=== PATIENT | female | born 1955 | race Caucasian/White ===

== ENCOUNTER 2023-10-26 17:56 | Observation (INO) | payer MEDICARE, BC, SELFPAY ==
[2023-10-26 18:02] VITALS: BP 161/84; PULSE 88; RESP 14; TEMP 35.6; O2SAT 100; BMI 25.4
--- OUTSIDE RECORDS SUMMARY | 2023-10-26 18:36 | XMS RPT_ITS | CCD ---
Author Name Unknown Address [id number] [place] [address] Organization [facility] Care Team Providers Care Hyperbaric Tech Name Role Phone Joanne Monae Unavailable Unavailable Joanne Monae Unavailable Unavailable No Doctor Assigned, Nodr Unavailable Unavail able Ciesa, Tess Unavailable Fast, Madison A Unavailable Lis Abad Unavailable Unavailable Manchak, Maisha Unavailable Unavailable Slarb, Lenora Unavailable Unavailable Unavailable Unavailable Ciesa, Tess Unavailable Fast, Madison A Unavailable Alba Rich Unavailable Unavailable Manchak, Maisha Unavailable Unavailable Lis Abad Unavailable Unavailable Slarb, Lenora Unavailable Unavailable Dennis Monzon Unavailable Unavailable Unavailable Unavailable Cisussya Lisa Attending Unavailable Fast, Madison A Referring Unavailable Autumna Lisa Consulting Unavailable Dnenis Monzon Unavailable Unavailable Manchak, Maisha Unavailable Unavailable Lis Abad Unavailable Unavailable Dennis Evangelista Unavailable Unavailable Unavailable Unavailable ESAU DESOUZA Attending Unavailable ESAU DESOUZA Primary Care Unavailable ESAU DESOUZA Admitting Unavailable DEOESAU PATTERSON Attending Unavailable ESAU DESOUZA Primary Care Unavailable DOEESAU Admitting Unavailable Ciesa JAIME Tess Unavailable Fast DO, Madison A Unavailable Dennis Evangelista LPN Unavailable Unavailable Manchak ROXANNE, Maisha Unavailable Unavailable Lis Abad RN Unavailable Unavailable Unavailable Unavailable ESTELLE GREENBERG CNP Admitting Unavailab le ESTELLE GREENBERG CNP Attending Unavailab le AA REQUESTED, NEW Primary Care Unavailable APOSTOLIS, CLARA A Admitting Unavailable APOSTOLIS, CLARA A Attending Unavailable AA REQUESTED, NEW Primary Care Unavailable AA NO PCP, NO PCP Primary Care Unavailable APOSTOLIS, CLARA A Admitting Unavailable APOSTOLIS, CLARA A Attending Unavailable APOSTOLIS, CLARA A Admitting Unavailable APOSTOLIS, CLARA A Attending Unavailable JOANNE THEODORE Consulting Unavailable AA REQUESTED, NEW Primary Care Unavailable RAFAELA ERVIN Consulting Unavailable Emani Robledo MA Unavailable Unavailable Lisa Mcneil Unavailable Ricky DO, Madison A Unavailable Ramon RESIDENTIAL SOLAR SALES CONSULTANT, Markos Unavailable [phone] Ramon RESIDENTIAL SOLAR SALES CONSULTANT, Markos Unavailable [phone] Lisa Mcneil Unavailable Ramon RESIDENTIAL SOLAR SALES CONSULTANT, Markos Unavailable [phone] Christian DO, Jennifer Unavailable [phone] Baltazar QUALITY CONTROL TESTER, Kayela Unavailable Unavailable Loni Kaplan MA Unavailable Unavailable Slarb PUBLIC TRANSIT SPECIALIST, Lenora Unavailable Unavailable Unavailable Unavailable RAMON, NO MARKOS Referring Unavailable RAMON, CLEMENTE BURROWS Attending Unavailable Allergies Allergy Classification Reported Allergen(s) Allergy Type Date of Onset Reaction(s) Facility Acetaminophen / HYDROcodone (1 source) Acetaminophen / HYDROcodone Drug Allergy [facility] Repository Acetaminophen / oxyCODONE (5 sources) Acetaminophen / oxyCODONE; Translations: [Percocet *ANALGESICS - OPIOID*] Drug Allergy Itching [facility] Work Phone: Medications Completed/Discontinued Medications Medication Drug Class(es) Dates Sig (Normalized) Sig (Original) [id number] 200 actuat albuterol 0.09 mg/actuat metered dose inhaler (10 sources) beta2-Adrenergic Agonist Start: 09-03-2022 End: 07-23-2023 take 1-2 puff(s) by inhalation every four hours as needed albuterol sulfate 90 mcg/actuation inhalation HFA Aerosol with Adapter 1-2 Puff every 4 hours as needed for shortness of breath for 0 days Quantity: 1 {Each} Refills: 0 Ordered: 24-Oct-2023 Renetta DYERLenora Start : 03-Sep-2022 End : 23-Jul-2023 Discontinued Comments: Medication taken as needed. Problems Active Problems Problem Classification Problem Date Documented Date Episodic/Chronic Administrative/social admission (13 sources) Medical examinations/reports status; Translations: [Well woman exam with routine gynecological exam] 11-04-2017 Episodic Allergic reactions (1 source) Allergy status to narcotic agent status; Translations: [ALLERGY STATUS NARCOTIC AGENT] Onset: 02-02-2021 Episodic Cancer of breast (20 sources) Malignant neoplasm of female breast; Translations: [Primary malignant neoplasm of breast] 11-04-2017 Chronic Past or Other Problems Problem Classification Problem Date Documented Da te Episodic/Chronic Deficiency and other anemia (20 sources) Deficiency and other anemia Diabetes mellitus without complication (20 sources) Diabetes mellitus without complication Unclassified (20 sources) Unspecified Diagnosis 11-04-2017 Unclassified (20 sources) Abortions/Miscarriages ; Translations: [Abortions/Miscarriage s] 11-04-2017 Results Test Name Value Interpretation Reference Range Facil ity Vital Signs Date Time Vital Sign Value Performing Clinician Facility 07-23-2023 08:18-0400 Body height 165.74 cm Lenora Jackson LPN [facility] Work Phone: 07-23-2023 08:18-0400 Body mass index (BMI) [Ratio] 23.78 kg/m2 Lenora Jackson LPN [facility] Work Phone: 07-23-2023 08:18-0400 Body surface area Derived from formula 1.73 m2 Lenora Jackson LPN [facility] Work Phone: 07-23-2023 08:18-0400 Body temperature 97.8 [degF] Lenora Jackson LPN [facility] Work Phone: Encounters Encounter Date Encounter Type Care Provider Facility Start: 09-05-2023 End: 09-06-2023 ambulatory NO MARKOS NAVARRO Facility:[id number] Start: 07-23-2023 End: 07-23-2023 Office outpatient visit 25 minutes Markos Navarro RESIDENTIAL SOLAR SALES CONSULTANT Work Phone: [facility] Start: 07-23-2023 Review Markos Navarro CNP Work Phone: [facility] Start: 09-03-2022 Review Markos Navarro CNP Work Phone: [facility] Start: 09-03-2022 End: 09-16-2022 Office outpatient visit 15 minutes Markos Navarro CNP Work Phone: [facility] Start: 08-31-2022 End: 09-13-2022 Office outpatient visit 15 minutes Markos Navarro CNP Work Phone: [facility] Start: 06-12-2022 End: 06-12-2022 Annotation/Addendum Markos Navarro CNP Work Phone: [facility] Start: 05-15-2022 End: 05-15-2022 Office outpatient visit 25 minutes Markos Navarro CNP Work Phone: [facility] Start: 04-06-2022 End: 04-06-2022 Office outpatient visit 10 minutes Markos Navarro CNP Work Phone: [facility] Start: 09-08-2021 End: 09-08-2021 Office outpatient visit 5 minutes Lisa Mcneil CNP Work Phone: [facility] Start: 03-10-2021 End: 03-10-2021 Annotation/Addendum Lisa Mcneil CNP Work Phone: [facility] Start: 02-08-2021 End: 02-08-2021 Patient encounter status Markos Navarro RESIDENTIAL SOLAR SALES CONSULTANT Work Phone: [facility] Start: 02-08-2021 End: 02-08-2021 Periodic preventive med est patient 65yrs& older Lisa Mcneil RESIDENTIAL SOLAR SALES CONSULTANT Work Phone: [facility] Start: 01-30-2021 Encounter for other preprocedural examination ESTELLE García CNP [facility] Start: 01-19-2021 End: [facility] Start: 01-16-2021 End: 01-17-2021 ambulatory ESTELLE García CNP [facility] Start: 11-21-2020 End: 11-21-2020 Patient encounter procedure ESAU Schrader DEO [facility] Start: 10-28-2020 End: 10-28-2020 Patient encounter procedure ESUA Schrader DEO [facility] Start: 09-05-2020 End: 09-05-2020 ambulatory NO PCP AA NO PCP [facility] Start: 04-27-2020 End: 04-27-2020 Office outpatient visit 15 minutes Lisa [facility] Start: 04-27-2020 Review Lisa Rodriguezsilvia Brandan [facility] Start: 02-16-2020 End: 02-16-2020 Annotation/Addendum Lisa Mcneil [facility] Start: 02-03-2020 End: 02-03-2020 Annotation/Addendum Lisa Mcneil [facility] Start: 01-25-2020 End: 01-25-2020 Phone Encounter Lisa Jennifersilvia [facility] Start: 01-23-2020 End: 01-23-2020 Annotation/Addendum Lisa Jennifersilvia [facility] Start: 01-15-2020 End: 01-15-2020 Office outpatient visit 25 minutes Lisa Meraz [facility] Start: 01-15-2020 End: 01-15-2020 Patient encounter procedure Markos Navarro CNP Work Phone: [facility] Start: 12-17-2018 Patient encounter procedure Lisa Mcneil [facility] Start: 12-17-2018 End: 12-17-2018 Annotation/Addendum Lisa Autumnfrancis [facility] Start: 12-17-2018 End: 12-17-2018 Patient encounter procedure Markos Navarro CNP Work Phone: [facility] Start: 12-17-2018 End: 12-17-2018 Patient encounter status Markos Navarro CNP Work Phone: [facility] Start: 12-17-2018 End: 12-17-2018 Periodic preventive med est patient 40-64yrs Lisa Meraz [facility] Start: 01-28-2018 End: 01-28-2018 Ambulatory Joanne Monae Facility:[facility] Start: 12-03-2017 End: 12-03-2017 Annotation/Addendum Lisa Mcneil [facility] Start: 11-04-2017 End: 11-04-2017 Patient encounter procedure Markos Landapuja SANDOVAL Work Phone: [facility] Start: 11-04-2017 End: 11-04-2017 Periodic preventive med est patient 40-64yrs Lisa Mcneil [facility] Start: 03-18-2017 End: 03-18-2017 Office outpatient visit 15 minutes Lisa Mcneil [facility] Start: 02-05-2017 End: 02-05-2017 Annotation/Addendum Lisa Mcneil [facility] Start: 02-04-2017 End: 02-04-2017 Phone Encounter Lisa Mcneil [facility] Start: 11-07-2016 End: 11-07-2016 Patient encounter procedure Lisa Leyvafrancis [facility] Start: 11-06-2016 End: 11-06-2016 Phone Encounter Lisa Mcneil [facility] Start: 11-02-2016 End: 11-02-2016 Lab Order Lisa Mcneil [facility] Start: 10-31-2016 End: 10-31-2016 Patient encounter procedure Markos Ramon SANDOVAL Work Phone: [facility] Start: 10-31-2016 End: 10-31-2016 Periodic preventive med est patient 40-64yrs Lisa Leyvafrancis [facility] Start: 10-07-2015 End: 10-11-2015 Office outpatient visit 25 minutes Lisa Leyvafrancis [facility] Start: 10-07-2015 End: 10-11-2015 Patient encounter procedure Markos Navarro CNP Work Phone: [facility] Start: 09-07-2014 End: 09-07-2014 Medical examinations/reports status Markos Navarro CNP Work Phone: [facility] Start: 09-07-2014 End: 09-07-2014 Office outpatient visit 25 minutes Lisa Autumnfrancis [facility] Start: 08-10-2014 End: 08-10-2014 Phone Encounter Lisa Leyvafrancis [facility] Start: 08-09-2014 End: 08-09-2014 Office outpatient visit 25 minutes Lisa Leyvafrancis [facility] Start: 06-15-2014 End: 06-15-2014 Phone Encounter Lisa Leyvafrancis [facility] Start: 08-05-2013 End: 08-06-2013 Medical examinations/reports status Markos Navarro RESIDENTIAL SOLAR SALES CONSULTANT Work Phone: [facility] Start: 08-05-2013 End: 08-06-2013 Patient encounter procedure Lisa Mcneil [facility] Start: 07-07-2013 End: 07-07-2013 Patient encounter procedure Lisa Mcneil [facility] Patient encounter procedure Dennis Evangelista PUBLIC TRANSIT SPECIALIST [facility] Work Phone: Patient encounter procedure Dennis Evangelista LPN [facility] Work Phone: Patient encounter procedure Dennis Jean Carlos ENGLISHN [facility] Work Phone: Patient encounter procedure Ashley Ledesma CMA [facility] Work Phone: Patient encounter procedure Lenora Slarb PUBLIC TRANSIT SPECIALIST [facility] Work Phone: Patient encounter procedure Lenora Slarb PUBLIC TRANSIT SPECIALIST [facility] Work Phone: Patient encounter procedure Lenora Slarb PUBLIC TRANSIT SPECIALIST [facility] Work Phone: Patient encounter status Lisa Mcneil RESIDENTIAL SOLAR SALES CONSULTANT Work Phone: [facility] Work Phone: Patient encounter status Dennis Evangelista PUBLIC TRANSIT SPECIALIST [facility] Work Phone: Patient encounter status Violetachana Delaney [place] [facility] Work Phone: Patient encounter status Lenora Slarb PUBLIC TRANSIT SPECIALIST [facility] Work Phone: Patient encounter status Lenora Slarb PUBLIC TRANSIT SPECIALIST [facility] Work Phone: Patient encounter status Lenora Slarb PUBLIC TRANSIT SPECIALIST [facility] Work Phone: Procedures Date Procedure Procedure Detail Performing Clinician Arthroscopic knee operation Dennis Evangelista Arthroscopic knee operation Dennis Evangelista PUBLIC TRANSIT SPECIALIST Arthroscopic knee operation Dennis Evangelista LPN Arthroscopic knee operation Violetachana Ledesma CMA Arthroscopic knee operation Lenora Slarb PUBLIC TRANSIT SPECIALIST Arthroscopic knee operation Lenora Slarb PUBLIC TRANSIT SPECIALIST Arthroscopic Knee [facility] - Left Lis L Long Arthroscopic Knee [facility] - Left Alba Hilario Arthroscopic Knee [facility] - Left Dennis Monzon H/O: hysterectomy Status post hysterectom y Lisa Mcneil [facility] Work Phone: Plan of Treatment Date Care Activity Detail Author Start: 07-23-2023 Patient Education Bone Mineral Density Testing: dexa [facility] Work Phone: Start: 07-23-2023 Procedure Education Eprescribed prescriptions (G8553) [facility] Work Phone: Start: 07-23-2023 Provider Instructions for Treatment [facility] Work Phone: Start: 07-23-2023 25 hydroxy includes fractions if performed CALCIFEDIOL (52969) [facility]; [facility] Work Phone: Start: 07-23-2023 Lipid panel LIPID PANEL (63876) [facility] Work Phone: Start: 07-23-2023 Urinalysis qual/semiquant except immunoassays URINALYSIS (81196) [facility]; [facility] Work Phone: Start: 07-23-2023 Blood count complete auto&auto difrntl wbc CBC, PLATELETS & AUT DIFF (79384) [facility]; [facility] Work Phone: Start: 07-23-2023 Assay of thyroid stimulating hormone tsh TSH (THYROID STIMULATING HORMONE) (41189) [facility]; [facility] Work Phone: Start: 07-23-2023 Comprehensive metabolic panel METABOLIC PANEL, COMPREHENSIVE (89279) [facility]; [facility] Work Phone: Start: 09-03-2022 Procedure Education Eprescribed prescriptions (G8553) [facility]; [facility] Work Phone: Start: 09-03-2022 Provider Instructions for Treatment Follow up if no improvement or if symptoms worsen [facility] Work Phone: Start: 08-31-2022 Procedure Education Eprescribed prescriptions (G8553) [facility]; [facility] Work Phone: Start: 08-31-2022 Provider Instructions for Treatment Follow up if no improvement or if symptoms worsen [facility]; [facility] Work Phone: Start: 05-15-2022 Procedure Education Eprescribed prescriptions (G8553) [facility]; [facility] Work Phone: Start: 05-15-2022 Provider Instructions for Treatment Follow up in 1 year [facility]; [facility] Work Phone: Start: 04-06-2022 Procedure Education Eprescribed prescriptions (G8553) [facility] Work Phone: Start: 04-06-2022 Culture bct isol&prsmptv id isolate ea urine URINE MORENO CULTURE-IDENTIFICATN (09281) [facility]; [facility] Work Phone: Start: 04-28-2021 Lipid panel LIPID PANEL (46329) [facility] Work Phone: Start: 02-08-2021 Procedure Education Eprescribed prescriptions (G8553) [facility]; [facility] Work Phone: Start: 02-08-2021 Provider Instructions for Treatment [facility] Work Phone: Start: 02-08-2021 Assay of thyroid stimulating hormone tsh TSH (THYROID STIMULATING HORMONE) (00818) [facility]; [facility] Work Phone: Start: 04-27-2020 Procedure Education Eprescribed prescriptions (G8553) [facility] Work Phone: Start: 04-27-2020 Provider Instructions for Treatment Follow up if no improvement or if symptoms worsen [facility] Work Phone: Start: 01-25-2020 Lipid panel Lipid Panel (36999) [facility] Work Phone: Start: 01-25-2020 Hepatic function panel HEPATIC FUNCTION PANEL (08131) [facility] Work Phone: Start: 01-15-2020 Procedure Education Eprescribed prescriptions (G8553) [facility] Work Phone: Start: 01-15-2020 Provider Instructions for Treatment [facility] Work Phone: Start: 12-17-2018 Procedure Education Eprescribed prescriptions (G8553) [facility] Work Phone: Start: 12-17-2018 Provider Instructions for Treatment [facility] Work Phone: Start: 12-17-2018 Blood count complete auto&auto difrntl wbc CBC, Platelets & Auto Diff (31226) [facility] Work Phone: Start: 12-17-2018 Comprehensive metabolic panel Metabolic Panel, Comprehensive (54892) [facility] Work Phone: Start: 12-17-2018 Hpv, dna, amp probe HPV, Reflex (63551) [facility] Work Phone: Start: 12-17-2018 Thyrotropin Qn TSH (THYROID STIMULATING HORMONE) (19732) [facility] Work Phone: Start: 12-17-2018 Lipid panel LIPID PANEL (73912) [facility] Work Phone: Start: 12-17-2018 Cytp cerv/vag auto thin layer prep mnl screen Thin prep Pap (15505) (no STD testing) [facility] Work Phone: Start: 11-04-2017 Procedure Education Eprescribed prescriptions (G8553) [facility] Work Phone: Start: 11-04-2017 Provider Instructions for Treatment [facility] Work Phone: Start: 11-04-2017 Cytp cerv/vag auto thin layer prep mnl screen Thin prep Pap (75884) (no STD testing) [facility] Work Phone: Start: 03-18-2017 Procedure Education Eprescribed prescriptions (G8553) [facility] Work Phone: Start: 03-18-2017 Provider Instructions for Treatment Follow up in Oct 2017 get labs in Dec fasting [facility] Work Phone: Start: 03-18-2017 Blood count complete auto&auto difrntl wbc CBC, Platelets & Auto Diff (91707) [facility] Work Phone: Immunizations Immunization Date Immunization Notes Care Provider Yolis hunter 07-23-2023 influenza, injectabl e, quadrivalent, contains preservative Markos Ramon RESIDENTIAL SOLAR SALES CONSULTANT Work Phone: [facility]; [facility] Work Phone: Payers Date Payer Category Payer Unknown 2016 Unknown [id number] 2015 Unknown [id number] 2012 Unknown [id number] 1959 Medicare [id number] 1960 Medicare [id number] 1954 Unknown [id number] [id number] [id number] 1954 Unknown [id number] [id number] [id number] 1954 Unknown [id number] 2.16.84 [id number] 1954 Unknown [id number] 2.16.8 [id number] 1954 Unknown [id number] 2.16.8 [id number] 1954 Unknown [id number] 2.16.8 [id number] 1954 Unknown [id number] 2.16.8 [id number] Medicare Unknown [id number] Social History Date Type Detail Facility Alcohol Use: Former smoker [facility] Work Phone: No Caffeine Use [facility] Work Phone: Tobacco use: Former smoker. [facility] Work Phone: Alcohol Use: Alcohol Use: [facility] Work Phone: Tobacco use: Tobacco use: [facility] Work Phone: Clinical Notes 10-11-2021 to 09-03-2022 Note Date & Type Note Facility [facility] Work Phone: [phone]) 266-763301-12-2022 NoteHNO ID: [id number] Author: Tariq Gary MD Service: ? 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 No history of heart disease or hypertension. (+) history of hyperlipidemia with (+) family history of early ASCAD. Feeling well. No falls, fractures. Has back pain. History of breast cancer. Has had KWAME/BSO. Notes no neck swelling or dysphagia. Weight has gone up 10 pounds in the past year. Non-smoker, occasional alcohol use. Current Outpatient Medications on File Prior to Visit Medication Sig - lovastatin (MEVACOR) 20 mg tablet - levothyroxine (SYNTHROID) 75 mcg tablet - hydroxyzine HCl (ATARAX ORAL) Take 1 tablet by mouth daily at bedtime. - calcium carbonate/vitamin D3 (CALTRATE 600 + D ORAL) Take 1 tablet by mouth once daily. - ubidecarenone/vitamin E mixed (COQ10 SG 100 ORAL) Take 2 tablets by mouth. ALLERGIES Allergen Reactions - Codeine Itching PAST MEDICAL HISTORY Diagnosis Date - Breast cancer (HCC) 2005 - Hypercholesterolemia - Hypothyroidism PAST SURGICAL HISTORY Procedure Laterality Date - DIAGNOSTIC ARTHROSCOPY KNEE - MASTECTOMY, SIMPLE, COMPLETE Right 2006 - REPAIR OF SHOULDER Right - TOTAL ABDOM HYSTERECTOMY Bilateral with BSO FAMILY HISTORY Problem Relation Age of Onset - Lung Cancer Mother - Alzheimer's Disease Mother - Heart Attack Father 44 - Prostate Cancer Brother - other (ankylosing spondylitis) Son Social History Tobacco Use - Smoking status: Never Smoker - Smokeless tobacco: Current User Substance Use Topics - Alcohol use: Not on file - Drug use: Not on file Review of systems: Patient notes no weight changes, fever, fatigue, weakness, change in balance or sensation, visual problems, hearing changes, dizziness, trouble swallowing, nasal difficulties, shortness of breath, chest pain, change in exertional tolerance, foot or leg problems, skin lesions, abdominal pain, diarrhea, constipation, urinary problems, incontinence, joint pains, anxiety, depression, insomnia, menstrual difficulties, breast lesions/pain/mass. Patient does report chronic back pain. Remainder of review of systems was unremarkable. BP 127/76 Pulse 64 Resp 16 Ht 165.5 cm (5' 5.16 ) Wt 66.7 kg (147 lb) SpO2 100% BMI 24.34 kg/m? General appearance: Well-appearing female, alert, in no acute distress, well-hydrated, well nourished. Skin: Skin color, texture, turgor normal, no suspicious rashes or lesions Head: normocephalic, no masses, lesions, tenderness or abnormalities Eyes: Anicteric sclera. Pupils are equally round. Extraocular movements are intact. Ears: not examined Nose/Sinuses: Nares normal. No drainage or sinus tenderness. Oropharynx: Lips, mucosa, and tongue normal, teeth and gums not examined. Neck: Supple, no adenopathy; no palpable thyroid enlargement. Lungs: Breathing unlabored. Heart: RRR. No ectopy Abdomen: deferred Extremities: No deformities, edema, skin discoloration, clubbing or cyanosis. Good capillary refill. Musculoskeletal: Spine range of motion not tested. Muscular strength intact, No joint swelling, deformity, or tenderness Neuro: Gait normal. Sensation grossly intact. Bone density was normal in 2018. IMPRESSION: Hypothyroidism - check TFTs on the current levothyroxine dose Hyperlipidemia - check lipid panel on lovastatin Vitamin D deficiency - check vitamin D status PLAN: Check TSH, free T4, CMP, and fasting lipid panel, 25-hydroxyvitamin D Will call with results See me again in 12 months, sooner prn Continue with [facility] for regular health care needs Tariq Gary MD I spent a total of 45 minutes on the date of service which included preparing to see the patient, [id number] patient care, completing clinical documentation, performing a medically appropriate examination, counseling and educating the patient/family/caregiver and ordering medications, tests, or procedures.[facility]* Name Dates Details Patient Instructions Indication:Other hyperlipidemia Start:08-Feb-2021 Instruction Type:Provider Instructions for Treatment How to Access [employer] Online using Patient Portal and [employer] Apps Indication:Non-smoker Start:08-Feb-2021 Instruction Type:Patient Education How to access health informa tion online Indication:Non-smoker Start:27-Apr-2020 Instruction Type:Patient Education How to access health informa tion online - Detail Indication:Non-smoker Start:27-Apr-2020 Instruction Type:Patient Education Patient Instructions Indication:Non-smoker Start:27-Apr-2020 Instruction Type:Provider Instructions for Treatment How to access health informa tion online Indication:BMI 23.0-23.9, adult Start:15-Jan-2020 Instruction Type:Patient Education How to access health informa tion online - Detail Indication:BMI 23.0-23.9, adult Start:15-Jan-2020 Instruction Type:Patient Education Patient Instructions Indication:BMI 23.0-23.9, adult Start:15-Jan-2020 Instruction Type:Provider Instructions for Treatment How to access health informa tion online Indication:Non-smoker Start:17-Dec-2018 Instruction Type:Patient Education How to access health informa tion online - Detail Indication:Non-smoker Start:17-Dec-2018 Instruction Type:Patient Education Patient Instructions Indication:Non-smoker Start:17-Dec-2018 Instruction Type:Provider Instructions for Treatment How to access health informa tion online Indication:BMI 23.0-23.9, adult Start:04-Nov-2017 Instruction Type:Patient Education How to access health informa tion online - Detail Indication:BMI 23.0-23.9, adult Start:04-Nov-2017 Instruction Type:Patient Education Patient Instructions Indication:BMI 23.0-23.9, adult Start:04-Nov-2017 Instruction Type:Provider Instructions for Treatment How to access health informa tion online Indication:Other hyperlipidemia Start:18-Mar-2017 Instruction Type:Patient Education How to access health informa tion online - Detail Indication:Other hyperlipidemia Start:18-Mar-2017 Instruction Type:Patient Education Patient Instructions Indication:Body mass index (BMI) 22.0-22.9, adult Start:18-Mar-2017 Instruction Type:Provider Instructions for Treatment How to access health informa tion online Indication:Well woman exam with routine gynecological exam Start:07-Oct-2015 Instruction Type:Patient Education How to access health informa tion online - Detail Indication:Well woman exam with routine gynecological exam Start:07-Oct-2015 Instruction Type:Patient Education Patient Instructions Indication:Well woman exam with routine gynecological exam Start:07-Oct-2015 Instruction Type:Provider Instructions for Treatment Patient Instructions Indication:Well woman exam with routine gynecological exam Start:07-Sep-2014 Instruction Type:Provider Instructions for Treatment Patient Instructions Indication:Need for prophylactic vaccination and inoculation against influenza (Renamed from Need for immunization against influenza) Start:09-Aug-2014 Instruction Type:Provider Instructions for Treatment Patient Instructions Indication:Well woman exam with routine gynecological exam Start:05-Aug-2013 Instruction Type:Provider Instructions for Treatment Patient Instructions Indication:Acquired hypothyroidism Start:07-Jul-2013 Instruction Type:Provider Instructions for Treatment [facility]; [facility] Work Phone: Instructions* Name Dates Details Patient Instructions Indication:Other hyperlipidemia Start:08-Feb-2021 Instruction Type:Provider Instructions for Treatment How to Access Health Informa tion Online using Patient Portal and [employer] Apps Indication:Non-smoker Start:08-Feb-2021 Instruction Type:Patient Education How to access health informa tion online Indication:Non-smoker Start:27-Apr-2020 Instruction Type:Patient Education How to access health informa tion online - Detail Indication:Non-smoker Start:27-Apr-2020 Instruction Type:Patient Education Patient Instructions Indication:Non-smoker Start:27-Apr-2020 Instruction Type:Provider Instructions for Treatment How to access health informa tion online Indication:BMI 23.0-23.9, adult Start:15-Jan-2020 Instruction Type:Patient Education How to access health informa tion online - Detail Indication:BMI 23.0-23.9, adult Start:15-Jan-2020 Instruction Type:Patient Education Patient Instructions Indication:BMI 23.0-23.9, adult Start:15-Jan-2020 Instruction Type:Provider Instructions for Treatment How to access health informa tion online Indication:Non-smoker Start:17-Dec-2018 Instruction Type:Patient Education How to access health informa tion online - Detail Indication:Non-smoker Start:17-Dec-2018 Instruction Type:Patient Education Patient Instructions Indication:Non-smoker Start:17-Dec-2018 Instruction Type:Provider Instructions for Treatment How to access health informa tion online Indication:BMI 23.0-23.9, adult Start:04-Nov-2017 Instruction Type:Patient Education How to access health informa tion online - Detail Indication:BMI 23.0-23.9, adult Start:04-Nov-2017 Instruction Type:Patient Education Patient Instructions Indication:BMI 23.0-23.9, adult Start:04-Nov-2017 Instruction Type:Provider Instructions for Treatment How to access health informa tion online Indication:Other hyperlipidemia Start:18-Mar-2017 Instruction Type:Patient Education How to access health informa tion online - Detail Indication:Other hyperlipidemia Start:18-Mar-2017 Instruction Type:Patient Education Patient Instructions Indication:Body mass index (BMI) 22.0-22.9, adult Start:18-Mar-2017 Instruction Type:Provider Instructions for Treatment How to access health informa tion online Indication:Well woman exam with routine gynecological exam Start:07-Oct-2015 Instruction Type:Patient Education How to access health informa tion online - Detail Indication:Well woman exam with routine gynecological exam Start:07-Oct-2015 Instruction Type:Patient Education Patient Instructions Indication:Well woman exam with routine gynecological exam Start:07-Oct-2015 Instruction Type:Provider Instructions for Treatment Patient Instructions Indication:Well woman exam with routine gynecological exam Start:07-Sep-2014 Instruction Type:Provider Instructions for Treatment Patient Instructions Indication:Need for prophylactic vaccination and inoculation against influenza (Renamed from Need for immunization against influenza) Start:09-Aug-2014 Instruction Type:Provider Instructions for Treatment Patient Instructions Indication:Well woman exam with routine gynecological exam Start:05-Aug-2013 Instruction Type:Provider Instructions for Treatment Patient Instructions Indication:Acquired hypothyroidism Start:07-Jul-2013 Instruction Type:Provider Instructions for Treatment [facility]; [facility] Work Phone: Instructions* Name Dates Details Patient Instructions Indication:Other hyperlipidemia Start:08-Feb-2021 Instruction Type:Provider Instructions for Treatment How to Access Health Informa tion Online using Patient Portal and [employer] Apps Indication:Non-smoker Start:08-Feb-2021 Instruction Type:Patient Education How to access health informa tion online Indication:Non-smoker Start:27-Apr-2020 Instruction Type:Patient Education How to access health informa tion online - Detail Indication:Non-smoker Start:27-Apr-2020 Instruction Type:Patient Education Patient Instructions Indication:Non-smoker Start:27-Apr-2020 Instruction Type:Provider Instructions for Treatment How to access health informa tion online Indication:BMI 23.0-23.9, adult Start:15-Jan-2020 Instruction Type:Patient Education How to access health informa tion online - Detail Indication:BMI 23.0-23.9, adult Start:15-Jan-2020 Instruction Type:Patient Education Patient Instructions Indication:BMI 23.0-23.9, adult Start:15-Jan-2020 Instruction Type:Provider Instructions for Treatment How to access health informa tion online Indication:Non-smoker Start:17-Dec-2018 Instruction Type:Patient Education How to access health informa tion online - Detail Indication:Non-smoker Start:17-Dec-2018 Instruction Type:Patient Education Patient Instructions Indication:Non-smoker Start:17-Dec-2018 Instruction Type:Provider Instructions for Treatment How to access health informa tion online Indication:BMI 23.0-23.9, adult Start:04-Nov-2017 Instruction Type:Patient Education How to access health informa tion online - Detail Indication:BMI 23.0-23.9, adult Start:04-Nov-2017 Instruction Type:Patient Education Patient Instructions Indication:BMI 23.0-23.9, adult Start:04-Nov-2017 Instruction Type:Provider Instructions for Treatment How to access health informa tion online Indication:Other hyperlipidemia Start:18-Mar-2017 Instruction Type:Patient Education How to access health informa tion online - Detail Indication:Other hyperlipidemia Start:18-Mar-2017 Instruction Type:Patient Education Patient Instructions Indication:Body mass index (BMI) 22.0-22.9, adult Start:18-Mar-2017 Instruction Type:Provider Instructions for Treatment How to access health informa tion online Indication:Well woman exam with routine gynecological exam Start:07-Oct-2015 Instruction Type:Patient Education How to access health informa tion online - Detail Indication:Well woman exam with routine gynecological exam Start:07-Oct-2015 Instruction Type:Patient Education Patient Instructions Indication:Well woman exam with routine gynecological exam Start:07-Oct-2015 Instruction Type:Provider Instructions for Treatment Patient Instructions Indication:Well woman exam with routine gynecological exam Start:07-Sep-2014 Instruction Type:Provider Instructions for Treatment Patient Instructions Indication:Need for prophylactic vaccination and inoculation against influenza (Renamed from Need for immunization against influenza) Start:09-Aug-2014 Instruction Type:Provider Instructions for Treatment Patient Instructions Indication:Well woman exam with routine gynecological exam Start:05-Aug-2013 Instruction Type:Provider Instructions for Treatment Patient Instructions Indication:Acquired hypothyroidism Start:07-Jul-2013 Instruction Type:Provider Instructions for Treatment [facility]; [facility] Work Phone: Instructions* Name Dates Details Patient Instructions Indication:Other hyperlipidemia Start:08-Feb-2021 Instruction Type:Provider Instructions for Treatment How to Access Health Informa tion Online using Patient Portal and [employer] Apps Indication:Non-smoker Start:08-Feb-2021 Instruction Type:Patient Education How to access health informa tion online Indication:Non-smoker Start:27-Apr-2020 Instruction Type:Patient Education How to access health informa tion online - Detail Indication:Non-smoker Start:27-Apr-2020 Instruction Type:Patient Education Patient Instructions Indication:Non-smoker Start:27-Apr-2020 Instruction Type:Provider Instructions for Treatment How to access health informa tion online Indication:BMI 23.0-23.9, adult Start:15-Jan-2020 Instruction Type:Patient Education How to access health informa tion online - Detail Indication:BMI 23.0-23.9, adult Start:15-Jan-2020 Instruction Type:Patient Education Patient Instructions Indication:BMI 23.0-23.9, adult Start:15-Jan-2020 Instruction Type:Provider Instructions for Treatment How to access health informa tion online Indication:Non-smoker Start:17-Dec-2018 Instruction Type:Patient Education How to access health informa tion online - Detail Indication:Non-smoker Start:17-Dec-2018 Instruction Type:Patient Education Patient Instructions Indication:Non-smoker Start:17-Dec-2018 Instruction Type:Provider Instructions for Treatment How to access health informa tion online Indication:BMI 23.0-23.9, adult Start:04-Nov-2017 Instruction Type:Patient Education How to access health informa tion online - Detail Indication:BMI 23.0-23.9, adult Start:04-Nov-2017 Instruction Type:Patient Education Patient Instructions Indication:BMI 23.0-23.9, adult Start:04-Nov-2017 Instruction Type:Provider Instructions for Treatment How to access health informa tion online Indication:Other hyperlipidemia Start:18-Mar-2017 Instruction Type:Patient Education How to access health informa tion online - Detail Indication:Other hyperlipidemia Start:18-Mar-2017 Instruction Type:Patient Education Patient Instructions Indication:Body mass index (BMI) 22.0-22.9, adult Start:18-Mar-2017 Instruction Type:Provider Instructions for Treatment How to access health informa tion online Indication:Well woman exam with routine gynecological exam Start:07-Oct-2015 Instruction Type:Patient Education How to access health informa tion online - Detail Indication:Well woman exam with routine gynecological exam Start:07-Oct-2015 Instruction Type:Patient Education Patient Instructions Indication:Well woman exam with routine gynecological exam Start:07-Oct-2015 Instruction Type:Provider Instructions for Treatment Patient Instructions Indication:Well woman exam with routine gynecological exam Start:07-Sep-2014 Instruction Type:Provider Instructions for Treatment Patient Instructions Indication:Need for prophylactic vaccination and inoculation against influenza (Renamed from Need for immunization against influenza) Start:09-Aug-2014 Instruction Type:Provider Instructions for Treatment Patient Instructions Indication:Well woman exam with routine gynecological exam Start:05-Aug-2013 Instruction Type:Provider Instructions for Treatment Patient Instructions Indication:Acquired hypothyroidism Start:07-Jul-2013 Instruction Type:Provider Instructions for Treatment [facility]; [facility] Work Phone: Instructions* Name Dates Details Patient Instructions Indication:Other hyperlipidemia Start:08-Feb-2021 Instruction Type:Provider Instructions for Treatment How to Access Health Informa tion Online using Patient Portal and [employer] Apps Indication:Non-smoker Start:08-Feb-2021 Instruction Type:Patient Education How to access health informa tion online Indication:Non-smoker Start:27-Apr-2020 Instruction Type:Patient Education How to access health informa tion online - Detail Indication:Non-smoker Start:27-Apr-2020 Instruction Type:Patient Education Patient Instructions Indication:Non-smoker Start:27-Apr-2020 Instruction Type:Provider Instructions for Treatment How to access health informa tion online Indication:BMI 23.0-23.9, adult Start:15-Jan-2020 Instruction Type:Patient Education How to access health informa tion online - Detail Indication:BMI 23.0-23.9, adult Start:15-Jan-2020 Instruction Type:Patient Education Patient Instructions Indication:BMI 23.0-23.9, adult Start:15-Jan-2020 Instruction Type:Provider Instructions for Treatment How to access health informa tion online Indication:Non-smoker Start:17-Dec-2018 Instruction Type:Patient Education How to access health informa tion online - Detail Indication:Non-smoker Start:17-Dec-2018 Instruction Type:Patient Education Patient Instructions Indication:Non-smoker Start:17-Dec-2018 Instruction Type:Provider Instructions for Treatment How to access health informa tion online Indication:BMI 23.0-23.9, adult Start:04-Nov-2017 Instruction Type:Patient Education How to access health informa tion online - Detail Indication:BMI 23.0-23.9, adult Start:04-Nov-2017 Instruction Type:Patient Education Patient Instructions Indication:BMI 23.0-23.9, adult Start:04-Nov-2017 Instruction Type:Provider Instructions for Treatment How to access health informa tion online Indication:Other hyperlipidemia Start:18-Mar-2017 Instruction Type:Patient Education How to access health informa tion online - Detail Indication:Other hyperlipidemia Start:18-Mar-2017 Instruction Type:Patient Education Patient Instructions Indication:Body mass index (BMI) 22.0-22.9, adult Start:18-Mar-2017 Instruction Type:Provider Instructions for Treatment How to access health informa tion online Indication:Well woman exam with routine gynecological exam Start:07-Oct-2015 Instruction Type:Patient Education How to access health informa tion online - Detail Indication:Well woman exam with routine gynecological exam Start:07-Oct-2015 Instruction Type:Patient Education Patient Instructions Indication:Well woman exam with routine gynecological exam Start:07-Oct-2015 Instruction Type:Provider Instructions for Treatment Patient Instructions Indication:Well woman exam with routine gynecological exam Start:07-Sep-2014 Instruction Type:Provider Instructions for Treatment Patient Instructions Indication:Need for prophylactic vaccination and inoculation against influenza (Renamed from Need for immunization against influenza) Start:09-Aug-2014 Instruction Type:Provider Instructions for Treatment Patient Instructions Indication:Well woman exam with routine gynecological exam Start:05-Aug-2013 Instruction Type:Provider Instructions for Treatment Patient Instructions Indication:Acquired hypothyroidism Start:07-Jul-2013 Instruction Type:Provider Instructions for Treatment [facility]; [facility] Work Phone: Instructions* Name Dates Details Patient Instructions Indication:Other hyperlipidemia Start:08-Feb-2021 Instruction Type:Provider Instructions for Treatment How to Access Health Informa tion Online using Patient Portal and [employer] Indication:Non-smoker Start:08-Feb-2021 Instruction Type:Patient Education How to access health informa tion online Indication:Non-smoker Start:27-Apr-2020 Instruction Type:Patient Education How to access health informa tion online - Detail Indication:Non-smoker Start:27-Apr-2020 Instruction Type:Patient Education Patient Instructions Indication:Non-smoker Start:27-Apr-2020 Instruction Type:Provider Instructions for Treatment How to access health informa tion online Indication:BMI 23.0-23.9, adult Start:15-Jan-2020 Instruction Type:Patient Education How to access health informa tion online - Detail Indication:BMI 23.0-23.9, adult Start:15-Jan-2020 Instruction Type:Patient Education Patient Instructions Indication:BMI 23.0-23.9, adult Start:15-Jan-2020 Instruction Type:Provider Instructions for Treatment How to access health informa tion online Indication:Non-smoker Start:17-Dec-2018 Instruction Type:Patient Education How to access health informa tion online - Detail Indication:Non-smoker Start:17-Dec-2018 Instruction Type:Patient Education Patient Instructions Indication:Non-smoker Start:17-Dec-2018 Instruction Type:Provider Instructions for Treatment How to access health informa tion online Indication:BMI 23.0-23.9, adult Start:04-Nov-2017 Instruction Type:Patient Education How to access health informa tion online - Detail Indication:BMI 23.0-23.9, adult Start:04-Nov-2017 Instruction Type:Patient Education Patient Instructions Indication:BMI 23.0-23.9, adult Start:04-Nov-2017 Instruction Type:Provider Instructions for Treatment How to access health informa tion online Indication:Other hyperlipidemia Start:18-Mar-2017 Instruction Type:Patient Education How to access health informa tion online - Detail Indication:Other hyperlipidemia Start:18-Mar-2017 Instruction Type:Patient Education Patient Instructions Indication:Body mass index (BMI) 22.0-22.9, adult Start:18-Mar-2017 Instruction Type:Provider Instructions for Treatment How to access health informa tion online Indication:Well woman exam with routine gynecological exam Start:07-Oct-2015 Instruction Type:Patient Education How to access health informa tion online - Detail Indication:Well woman exam with routine gynecological exam Start:07-Oct-2015 Instruction Type:Patient Education Patient Instructions Indication:Well woman exam with routine gynecological exam Start:07-Oct-2015 Instruction Type:Provider Instructions for Treatment Patient Instructions Indication:Well woman exam with routine gynecological exam Start:07-Sep-2014 Instruction Type:Provider Instructions for Treatment Patient Instructions Indication:Need for prophylactic vaccination and inoculation against influenza (Renamed from Need for immunization against influenza) Start:09-Aug-2014 Instruction Type:Provider Instructions for Treatment Patient Instructions Indication:Well woman exam with routine gynecological exam Start:05-Aug-2013 Instruction Type:Provider Instructions for Treatment Patient Instructions Indication:Acquired hypothyroidism Start:07-Jul-2013 Instruction Type:Provider Instructions for Treatment [facility]; [facility] Work Phone: Instructions* Name Dates Details Patient Instructions Indication:Non-smoker Start:06-Apr-2022 Instruction Type:Provider Instructions for Treatment How to Access Health Informa tion Online using Patient Portal and [employer] Indication:Non-smoker Start:06-Apr-2022 Instruction Type:Patient Education Patient Instructions Indication:Other hyperlipidemia Start:08-Feb-2021 Instruction Type:Provider Instructions for Treatment How to Access Health Informa tion Online using Patient Portal and [employer] Apps Indication:Non-smoker Start:08-Feb-2021 Instruction Type:Patient Education How to access health informa tion online Indication:Non-smoker Start:27-Apr-2020 Instruction Type:Patient Education How to access health informa tion online - Detail Indication:Non-smoker Start:27-Apr-2020 Instruction Type:Patient Education Patient Instructions Indication:Non-smoker Start:27-Apr-2020 Instruction Type:Provider Instructions for Treatment How to access health informa tion online Indication:BMI 23.0-23.9, adult Start:15-Jan-2020 Instruction Type:Patient Education How to access health informa tion online - Detail Indication:BMI 23.0-23.9, adult Start:15-Jan-2020 Instruction Type:Patient Education Patient Instructions Indication:BMI 23.0-23.9, adult Start:15-Jan-2020 Instruction Type:Provider Instructions for Treatment How to access health informa tion online Indication:Non-smoker Start:17-Dec-2018 Instruction Type:Patient Education How to access health informa tion online - Detail Indication:Non-smoker Start:17-Dec-2018 Instruction Type:Patient Education Patient Instructions Indication:Non-smoker Start:17-Dec-2018 Instruction Type:Provider Instructions for Treatment How to access health informa tion online Indication:BMI 23.0-23.9, adult Start:04-Nov-2017 Instruction Type:Patient Education How to access health informa tion online - Detail Indication:BMI 23.0-23.9, adult Start:04-Nov-2017 Instruction Type:Patient Education Patient Instructions Indication:BMI 23.0-23.9, adult Start:04-Nov-2017 Instruction Type:Provider Instructions for Treatment How to access health informa tion online Indication:Other hyperlipidemia Start:18-Mar-2017 Instruction Type:Patient Education How to access health informa tion online - Detail Indication:Other hyperlipidemia Start:18-Mar-2017 Instruction Type:Patient Education Patient Instructions Indication:Body mass index (BMI) 22.0-22.9, adult Start:18-Mar-2017 Instruction Type:Provider Instructions for Treatment How to access health informa tion online Indication:Well woman exam with routine gynecological exam Start:07-Oct-2015 Instruction Type:Patient Education How to access health informa tion online - Detail Indication:Well woman exam with routine gynecological exam Start:07-Oct-2015 Instruction Type:Patient Education Patient Instructions Indication:Well woman exam with routine gynecological exam Start:07-Oct-2015 Instruction Type:Provider Instructions for Treatment Patient Instructions Indication:Well woman exam with routine gynecological exam Start:07-Sep-2014 Instruction Type:Provider Instructions for Treatment Patient Instructions Indication:Need for prophylactic vaccination and inoculation against influenza (Renamed from Need for immunization against influenza) Start:09-Aug-2014 Instruction Type:Provider Instructions for Treatment Patient Instructions Indication:Well woman exam with routine gynecological exam Start:05-Aug-2013 Instruction Type:Provider Instructions for Treatment Patient Instructions Indication:Acquired hypothyroidism Start:07-Jul-2013 Instruction Type:Provider Instructions for Treatment [facility]; [facility] Work Phone: Instructions* Name Dates Details Patient Instructions Indication:BMI 23.0-23.9, adult Start:15-May-2022 Instruction Type:Provider Instructions for Treatment How to Access Health Informa tion Online using Patient Portal and [employer] Apps Indication:BMI 23.0-23.9, adult Start:15-May-2022 Instruction Type:Patient Education Patient Instructions Indication:Non-smoker Start:06-Apr-2022 Instruction Type:Provider Instructions for Treatment How to Access Health Informa tion Online using Patient Portal and [employer] Apps Indication:Non-smoker Start:06-Apr-2022 Instruction Type:Patient Education Patient Instructions Indication:Other hyperlipidemia Start:08-Feb-2021 Instruction Type:Provider Instructions for Treatment How to Access Health Informa tion Online using Patient Portal and [employer] Apps Indication:Non-smoker Start:08-Feb-2021 Instruction Type:Patient Education How to access health informa tion online Indication:Non-smoker Start:27-Apr-2020 Instruction Type:Patient Education How to access health informa tion online - Detail Indication:Non-smoker Start:27-Apr-2020 Instruction Type:Patient Education Patient Instructions Indication:Non-smoker Start:27-Apr-2020 Instruction Type:Provider Instructions for Treatment How to access health informa tion online Indication:BMI 23.0-23.9, adult Start:15-Jan-2020 Instruction Type:Patient Education How to access health informa tion online - Detail Indication:BMI 23.0-23.9, adult Start:15-Jan-2020 Instruction Type:Patient Education Patient Instructions Indication:BMI 23.0-23.9, adult Start:15-Jan-2020 Instruction Type:Provider Instructions for Treatment How to access health informa tion online Indication:Non-smoker Start:17-Dec-2018 Instruction Type:Patient Education How to access health informa tion online - Detail Indication:Non-smoker Start:17-Dec-2018 Instruction Type:Patient Education Patient Instructions Indication:Non-smoker Start:17-Dec-2018 Instruction Type:Provider Instructions for Treatment How to access health informa tion online Indication:BMI 23.0-23.9, adult Start:04-Nov-2017 Instruction Type:Patient Education How to access health informa tion online - Detail Indication:BMI 23.0-23.9, adult Start:04-Nov-2017 Instruction Type:Patient Education Patient Instructions Indication:BMI 23.0-23.9, adult Start:04-Nov-2017 Instruction Type:Provider Instructions for Treatment How to access health informa tion online Indication:Other hyperlipidemia Start:18-Mar-2017 Instruction Type:Patient Education How to access health informa tion online - Detail Indication:Other hyperlipidemia Start:18-Mar-2017 Instruction Type:Patient Education Patient Instructions Indication:Body mass index (BMI) 22.0-22.9, adult Start:18-Mar-2017 Instruction Type:Provider Instructions for Treatment How to access health informa tion online Indication:Well woman exam with routine gynecological exam Start:07-Oct-2015 Instruction Type:Patient Education How to access health informa tion online - Detail Indication:Well woman exam with routine gynecological exam Start:07-Oct-2015 Instruction Type:Patient Education Patient Instructions Indication:Well woman exam with routine gynecological exam Start:07-Oct-2015 Instruction Type:Provider Instructions for Treatment Patient Instructions Indication:Well woman exam with routine gynecological exam Start:07-Sep-2014 Instruction Type:Provider Instructions for Treatment Patient Instructions Indication:Need for prophylactic vaccination and inoculation against influenza (Renamed from Need for immunization against influenza) Start:09-Aug-2014 Instruction Type:Provider Instructions for Treatment Patient Instructions Indication:Well woman exam with routine gynecological exam Start:05-Aug-2013 Instruction Type:Provider Instructions for Treatment Patient Instructions Indication:Acquired hypothyroidism Start:07-Jul-2013 Instruction Type:Provider Instructions for Treatment [facility]; [facility] Work Phone: Instructions* Name Dates Details Patient Instructions Indication:Non-smoker Start:03-Sep-2022 Instruction Type:Provider Instructions for Treatment How to Access Health Informa tion Online using Patient Portal and [employer] Apps Indication:Non-smoker Start:03-Sep-2022 Instruction Type:Patient Education Patient Instructions Indication:Non-smoker Start:31-Aug-2022 Instruction Type:Provider Instructions for Treatment How to Access Health Informa tion Online using Patient Portal and [employer] Apps Indication:Non-smoker Start:31-Aug-2022 Instruction Type:Patient Education Patient Instructions Indication:BMI 23.0-23.9, adult Start:15-May-2022 Instruction Type:Provider Instructions for Treatment How to Access Health Informa tion Online using Patient Portal and [employer] Apps Indication:BMI 23.0-23.9, adult Start:15-May-2022 Instruction Type:Patient Education Patient Instructions Indication:Non-smoker Start:06-Apr-2022 Instruction Type:Provider Instructions for Treatment How to Access Health Informa tion Online using Patient Portal and [employer] Apps Indication:Non-smoker Start:06-Apr-2022 Instruction Type:Patient Education Patient Instructions Indication:Other hyperlipidemia Start:08-Feb-2021 Instruction Type:Provider Instructions for Treatment How to Access Health Informa tion Online using Patient Portal and [employer] Apps Indication:Non-smoker Start:08-Feb-2021 Instruction Type:Patient Education How to access health informa tion online Indication:Non-smoker Start:27-Apr-2020 Instruction Type:Patient Education How to access health informa tion online - Detail Indication:Non-smoker Start:27-Apr-2020 Instruction Type:Patient Education Patient Instructions Indication:Non-smoker Start:27-Apr-2020 Instruction Type:Provider Instructions for Treatment How to access health informa tion online Indication:BMI 23.0-23.9, adult Start:15-Jan-2020 Instruction Type:Patient Education How to access health informa tion online - Detail Indication:BMI 23.0-23.9, adult Start:15-Jan-2020 Instruction Type:Patient Education Patient Instructions Indication:BMI 23.0-23.9, adult Start:15-Jan-2020 Instruction Type:Provider Instructions for Treatment How to access health informa tion online Indication:Non-smoker Start:17-Dec-2018 Instruction Type:Patient Education How to access health informa tion online - Detail Indication:Non-smoker Start:17-Dec-2018 Instruction Type:Patient Education Patient Instructions Indication:Non-smoker Start:17-Dec-2018 Instruction Type:Provider Instructions for Treatment How to access health informa tion online Indication:BMI 23.0-23.9, adult Start:04-Nov-2017 Instruction Type:Patient Education How to access health informa tion online - Detail Indication:BMI 23.0-23.9, adult Start:04-Nov-2017 Instruction Type:Patient Education Patient Instructions Indication:BMI 23.0-23.9, adult Start:04-Nov-2017 Instruction Type:Provider Instructions for Treatment How to access health informa tion online Indication:Other hyperlipidemia Start:18-Mar-2017 Instruction Type:Patient Education How to access health informa tion online - Detail Indication:Other hyperlipidemia Start:18-Mar-2017 Instruction Type:Patient Education Patient Instructions Indication:Body mass index (BMI) 22.0-22.9, adult Start:18-Mar-2017 Instruction Type:Provider Instructions for Treatment How to access health informa tion online Indication:Well woman exam with routine gynecological exam Start:07-Oct-2015 Instruction Type:Patient Education How to access health informa tion online - Detail Indication:Well woman exam with routine gynecological exam Start:07-Oct-2015 Instruction Type:Patient Education Patient Instructions Indication:Well woman exam with routine gynecological exam Start:07-Oct-2015 Instruction Type:Provider Instructions for Treatment Patient Instructions Indication:Well woman exam with routine gynecological exam Start:07-Sep-2014 Instruction Type:Provider Instructions for Treatment Patient Instructions Indication:Need for prophylactic vaccination and inoculation against influenza (Renamed from Need for immunization against influenza) Start:09-Aug-2014 Instruction Type:Provider Instructions for Treatment Patient Instructions Indication:Well woman exam with routine gynecological exam Start:05-Aug-2013 Instruction Type:Provider Instructions for Treatment Patient Instructions Indication:Acquired hypothyroidism Start:07-Jul-2013 Instruction Type:Provider Instructions for Treatment [facility]; [facility] Work Phone: Instructions* Name Dates Details Patient Instructions Indication:Non-smoker Start:03-Sep-2022 Instruction Type:Provider Instructions for Treatment How to Access Health Informa tion Online using Patient Portal and [employer] Apps Indication:Non-smoker Start:03-Sep-2022 Instruction Type:Patient Education Patient Instructions Indication:Non-smoker Start:31-Aug-2022 Instruction Type:Provider Instructions for Treatment How to Access Health Informa tion Online using Patient Portal and [employer] Apps Indication:Non-smoker Start:31-Aug-2022 Instruction Type:Patient Education Patient Instructions Indication:BMI 23.0-23.9, adult Start:15-May-2022 Instruction Type:Provider Instructions for Treatment How to Access Health Informa tion Online using Patient Portal and [employer] Apps Indication:BMI 23.0-23.9, adult Start:15-May-2022 Instruction Type:Patient Education Patient Instructions Indication:Non-smoker Start:06-Apr-2022 Instruction Type:Provider Instructions for Treatment How to Access Health Informa tion Online using Patient Portal and [employer] Apps Indication:Non-smoker Start:06-Apr-2022 Instruction Type:Patient Education Patient Instructions Indication:Other hyperlipidemia Start:08-Feb-2021 Instruction Type:Provider Instructions for Treatment How to Access Health Informa tion Online using Patient Portal and [employer] Apps Indication:Non-smoker Start:08-Feb-2021 Instruction Type:Patient Education How to access health informa tion online Indication:Non-smoker Start:27-Apr-2020 Instruction Type:Patient Education How to access health informa tion online - Detail Indication:Non-smoker Start:27-Apr-2020 Instruction Type:Patient Education Patient Instructions Indication:Non-smoker Start:27-Apr-2020 Instruction Type:Provider Instructions for Treatment How to access health informa tion online Indication:BMI 23.0-23.9, adult Start:15-Jan-2020 Instruction Type:Patient Education How to access health informa tion online - Detail Indication:BMI 23.0-23.9, adult Start:15-Jan-2020 Instruction Type:Patient Education Patient Instructions Indication:BMI 23.0-23.9, adult Start:15-Jan-2020 Instruction Type:Provider Instructions for Treatment How to access health informa tion online Indication:Non-smoker Start:17-Dec-2018 Instruction Type:Patient Education How to access health informa tion online - Detail Indication:Non-smoker Start:17-Dec-2018 Instruction Type:Patient Education Patient Instructions Indication:Non-smoker Start:17-Dec-2018 Instruction Type:Provider Instructions for Treatment How to access health informa tion online Indication:BMI 23.0-23.9, adult Start:04-Nov-2017 Instruction Type:Patient Education How to access health informa tion online - Detail Indication:BMI 23.0-23.9, adult Start:04-Nov-2017 Instruction Type:Patient Education Patient Instructions Indication:BMI 23.0-23.9, adult Start:04-Nov-2017 Instruction Type:Provider Instructions for Treatment How to access health informa tion online Indication:Other hyperlipidemia Start:18-Mar-2017 Instruction Type:Patient Education How to access health informa tion online - Detail Indication:Other hyperlipidemia Start:18-Mar-2017 Instruction Type:Patient Education Patient Instructions Indication:Body mass index (BMI) 22.0-22.9, adult Start:18-Mar-2017 Instruction Type:Provider Instructions for Treatment How to access health informa tion online Indication:Well woman exam with routine gynecological exam Start:07-Oct-2015 Instruction Type:Patient Education How to access health informa tion online - Detail Indication:Well woman exam with routine gynecological exam Start:07-Oct-2015 Instruction Type:Patient Education Patient Instructions Indication:Well woman exam with routine gynecological exam Start:07-Oct-2015 Instruction Type:Provider Instructions for Treatment Patient Instructions Indication:Well woman exam with routine gynecological exam Start:07-Sep-2014 Instruction Type:Provider Instructions for Treatment Patient Instructions Indication:Need for prophylactic vaccination and inoculation against influenza (Renamed from Need for immunization against influenza) Start:09-Aug-2014 Instruction Type:Provider Instructions for Treatment Patient Instructions Indication:Well woman exam with routine gynecological exam Start:05-Aug-2013 Instruction Type:Provider Instructions for Treatment Patient Instructions Indication:Acquired hypothyroidism Start:07-Jul-2013 Instruction Type:Provider Instructions for Treatment [facility]; [facility] Work Phone: Instructions* Name Dates Details Patient Instructions Indication:Non-smoker Start:03-Sep-2022 Instruction Type:Provider Instructions for Treatment How to Access Health Informa tion Online using Patient Portal and [employer] Apps Indication:Non-smoker Start:03-Sep-2022 Instruction Type:Patient Education Patient Instructions Indication:Non-smoker Start:31-Aug-2022 Instruction Type:Provider Instructions for Treatment How to Access Health Informa tion Online using Patient Portal and [employer] Apps Indication:Non-smoker Start:31-Aug-2022 Instruction Type:Patient Education Patient Instructions Indication:BMI 23.0-23.9, adult Start:15-May-2022 Instruction Type:Provider Instructions for Treatment How to Access Health Informa tion Online using Patient Portal and [employer] Apps Indication:BMI 23.0-23.9, adult Start:15-May-2022 Instruction Type:Patient Education Patient Instructions Indication:Non-smoker Start:06-Apr-2022 Instruction Type:Provider Instructions for Treatment How to Access Health Informa tion Online using Patient Portal and [employer] Apps Indication:Non-smoker Start:06-Apr-2022 Instruction Type:Patient Education Patient Instructions Indication:Other hyperlipidemia Start:08-Feb-2021 Instruction Type:Provider Instructions for Treatment How to Access Health Informa tion Online using Patient Portal and [employer] Apps Indication:Non-smoker Start:08-Feb-2021 Instruction Type:Patient Education How to access health informa tion online Indication:Non-smoker Start:27-Apr-2020 Instruction Type:Patient Education How to access health informa tion online - Detail Indication:Non-smoker Start:27-Apr-2020 Instruction Type:Patient Education Patient Instructions Indication:Non-smoker Start:27-Apr-2020 Instruction Type:Provider Instructions for Treatment How to access health informa tion online Indication:BMI 23.0-23.9, adult Start:15-Jan-2020 Instruction Type:Patient Education How to access health informa tion online - Detail Indication:BMI 23.0-23.9, adult Start:15-Jan-2020 Instruction Type:Patient Education Patient Instructions Indication:BMI 23.0-23.9, adult Start:15-Jan-2020 Instruction Type:Provider Instructions for Treatment How to access health informa tion online Indication:Non-smoker Start:17-Dec-2018 Instruction Type:Patient Education How to access health informa tion online - Detail Indication:Non-smoker Start:17-Dec-2018 Instruction Type:Patient Education Patient Instructions Indication:Non-smoker Start:17-Dec-2018 Instruction Type:Provider Instructions for Treatment How to access health informa tion online Indication:BMI 23.0-23.9, adult Start:04-Nov-2017 Instruction Type:Patient Education How to access health informa tion online - Detail Indication:BMI 23.0-23.9, adult Start:04-Nov-2017 Instruction Type:Patient Education Patient Instructions Indication:BMI 23.0-23.9, adult Start:04-Nov-2017 Instruction Type:Provider Instructions for Treatment How to access health informa tion online Indication:Other hyperlipidemia Start:18-Mar-2017 Instruction Type:Patient Education How to access health informa tion online - Detail Indication:Other hyperlipidemia Start:18-Mar-2017 Instruction Type:Patient Education Patient Instructions Indication:Body mass index (BMI) 22.0-22.9, adult Start:18-Mar-2017 Instruction Type:Provider Instructions for Treatment How to access health informa tion online Indication:Well woman exam with routine gynecological exam Start:07-Oct-2015 Instruction Type:Patient Education How to access health informa tion online - Detail Indication:Well woman exam with routine gynecological exam Start:07-Oct-2015 Instruction Type:Patient Education Patient Instructions Indication:Well woman exam with routine gynecological exam Start:07-Oct-2015 Instruction Type:Provider Instructions for Treatment Patient Instructions Indication:Well woman exam with routine gynecological exam Start:07-Sep-2014 Instruction Type:Provider Instructions for Treatment Patient Instructions Indication:Need for prophylactic vaccination and inoculation against influenza (Renamed from Need for immunization against influenza) Start:09-Aug-2014 Instruction Type:Provider Instructions for Treatment Patient Instructions Indication:Well woman exam with routine gynecological exam Start:05-Aug-2013 Instruction Type:Provider Instructions for Treatment Patient Instructions Indication:Acquired hypothyroidism Start:07-Jul-2013 Instruction Type:Provider Instructions for Treatment [facility]; [facility] Work Phone: Instructions* Name Dates Details How to Access Health Informa tion Online using Patient Portal and [employer] Apps Indication:Non-smoker Start:23-Jul-2023 Instruction Type:Patient Education Patient Instructions Indication:Non-smoker Start:23-Jul-2023 Instruction Type:Provider Instructions for Treatment Patient Instructions Indication:Non-smoker Start:03-Sep-2022 Instruction Type:Provider Instructions for Treatment How to Access Health Informa tion Online using Patient Portal and [employer] Apps Indication:Non-smoker Start:03-Sep-2022 Instruction Type:Patient Education Patient Instructions Indication:Non-smoker Start:31-Aug-2022 Instruction Type:Provider Instructions for Treatment How to Access Health Informa tion Online using Patient Portal and [employer] Apps Indication:Non-smoker Start:31-Aug-2022 Instruction Type:Patient Education Patient Instructions Indication:BMI 23.0-23.9, adult Start:15-May-2022 Instruction Type:Provider Instructions for Treatment How to Access Health Informa tion Online using Patient Portal and [employer] Apps Indication:BMI 23.0-23.9, adult Start:15-May-2022 Instruction Type:Patient Education Patient Instructions Indication:Non-smoker Start:06-Apr-2022 Instruction Type:Provider Instructions for Treatment How to Access Health Informa tion Online using Patient Portal and [employer] Apps Indication:Non-smoker Start:06-Apr-2022 Instruction Type:Patient Education Patient Instructions Indication:Other hyperlipidemia Start:08-Feb-2021 Instruction Type:Provider Instructions for Treatment How to Access Health Informa tion Online using Patient Portal and [employer] Apps Indication:Non-smoker Start:08-Feb-2021 Instruction Type:Patient Education How to access health informa tion online Indication:Non-smoker Start:27-Apr-2020 Instruction Type:Patient Education How to access health informa tion online - Detail Indication:Non-smoker Start:27-Apr-2020 Instruction Type:Patient Education Patient Instructions Indication:Non-smoker Start:27-Apr-2020 Instruction Type:Provider Instructions for Treatment How to access health informa tion online Indication:BMI 23.0-23.9, adult Start:15-Jan-2020 Instruction Type:Patient Education How to access health informa tion online - Detail Indication:BMI 23.0-23.9, adult Start:15-Jan-2020 Instruction Type:Patient Education Patient Instructions Indication:BMI 23.0-23.9, adult Start:15-Jan-2020 Instruction Type:Provider Instructions for Treatment How to access health informa tion online Indication:Non-smoker Start:17-Dec-2018 Instruction Type:Patient Education How to access health informa tion online - Detail Indication:Non-smoker Start:17-Dec-2018 Instruction Type:Patient Education Patient Instructions Indication:Non-smoker Start:17-Dec-2018 Instruction Type:Provider Instructions for Treatment How to access health informa tion online Indication:BMI 23.0-23.9, adult Start:04-Nov-2017 Instruction Type:Patient Education How to access health informa tion online - Detail Indication:BMI 23.0-23.9, adult Start:04-Nov-2017 Instruction Type:Patient Education Patient Instructions Indication:BMI 23.0-23.9, adult Start:04-Nov-2017 Instruction Type:Provider Instructions for Treatment How to access health informa tion online Indication:Other hyperlipidemia Start:18-Mar-2017 Instruction Type:Patient Education How to access health informa tion online - Detail Indication:Other hyperlipidemia Start:18-Mar-2017 Instruction Type:Patient Education Patient Instructions Indication:Body mass index (BMI) 22.0-22.9, adult Start:18-Mar-2017 Instruction Type:Provider Instructions for Treatment How to access health informa tion online Indication:Well woman exam with routine gynecological exam Start:07-Oct-2015 Instruction Type:Patient Education How to access health informa tion online - Detail Indication:Well woman exam with routine gynecological exam Start:07-Oct-2015 Instruction Type:Patient Education Patient Instructions Indication:Well woman exam with routine gynecological exam Start:07-Oct-2015 Instruction Type:Provider Instructions for Treatment Patient Instructions Indication:Well woman exam with routine gynecological exam Start:07-Sep-2014 Instruction Type:Provider Instructions for Treatment Patient Instructions Indication:Need for prophylactic vaccination and inoculation against influenza (Renamed from Need for immunization against influenza) Start:09-Aug-2014 Instruction Type:Provider Instructions for Treatment Patient Instructions Indication:Well woman exam with routine gynecological exam Start:05-Aug-2013 Instruction Type:Provider Instructions for Treatment Patient Instructions Indication:Acquired hypothyroidism Start:07-Jul-2013 Instruction Type:Provider Instructions for Treatment [facility]; [facility] Work Phone: Instructions* Name Dates Details How to Access Health Informa tion Online using Patient Portal and [employer] Apps Indication:Non-smoker Start:23-Jul-2023 Instruction Type:Patient Education Patient Instructions Indication:Non-smoker Start:23-Jul-2023 Instruction Type:Provider Instructions for Treatment Patient Instructions Indication:Non-smoker Start:03-Sep-2022 Instruction Type:Provider Instructions for Treatment How to Access Health Informa tion Online using Patient Portal and [employer] Apps Indication:Non-smoker Start:03-Sep-2022 Instruction Type:Patient Education Patient Instructions Indication:Non-smoker Start:31-Aug-2022 Instruction Type:Provider Instructions for Treatment How to Access Health Informa tion Online using Patient Portal and [employer] Apps Indication:Non-smoker Start:31-Aug-2022 Instruction Type:Patient Education Patient Instructions Indication:BMI 23.0-23.9, adult Start:15-May-2022 Instruction Type:Provider Instructions for Treatment How to Access Health Informa tion Online using Patient Portal and [employer] Apps Indication:BMI 23.0-23.9, adult Start:15-May-2022 Instruction Type:Patient Education Patient Instructions Indication:Non-smoker Start:06-Apr-2022 Instruction Type:Provider Instructions for Treatment How to Access Health Informa tion Online using Patient Portal and [employer] Apps Indication:Non-smoker Start:06-Apr-2022 Instruction Type:Patient Education Patient Instructions Indication:Other hyperlipidemia Start:08-Feb-2021 Instruction Type:Provider Instructions for Treatment How to Access Health Informa tion Online using Patient Portal and [employer] Apps Indication:Non-smoker Start:08-Feb-2021 Instruction Type:Patient Education How to access health informa tion online Indication:Non-smoker Start:27-Apr-2020 Instruction Type:Patient Education How to access health informa tion online - Detail Indication:Non-smoker Start:27-Apr-2020 Instruction Type:Patient Education Patient Instructions Indication:Non-smoker Start:27-Apr-2020 Instruction Type:Provider Instructions for Treatment How to access health informa tion online Indication:BMI 23.0-23.9, adult Start:15-Jan-2020 Instruction Type:Patient Education How to access health informa tion online - Detail Indication:BMI 23.0-23.9, adult Start:15-Jan-2020 Instruction Type:Patient Education Patient Instructions Indication:BMI 23.0-23.9, adult Start:15-Jan-2020 Instruction Type:Provider Instructions for Treatment How to access health informa tion online Indication:Non-smoker Start:17-Dec-2018 Instruction Type:Patient Education How to access health informa tion online - Detail Indication:Non-smoker Start:17-Dec-2018 Instruction Type:Patient Education Patient Instructions Indication:Non-smoker Start:17-Dec-2018 Instruction Type:Provider Instructions for Treatment How to access health informa tion online Indication:BMI 23.0-23.9, adult Start:04-Nov-2017 Instruction Type:Patient Education How to access health informa tion online - Detail Indication:BMI 23.0-23.9, adult Start:04-Nov-2017 Instruction Type:Patient Education Patient Instructions Indication:BMI 23.0-23.9, adult Start:04-Nov-2017 Instruction Type:Provider Instructions for Treatment How to access health informa tion online Indication:Other hyperlipidemia Start:18-Mar-2017 Instruction Type:Patient Education How to access health informa tion online - Detail Indication:Other hyperlipidemia Start:18-Mar-2017 Instruction Type:Patient Education Patient Instructions Indication:Body mass index (BMI) 22.0-22.9, adult Start:18-Mar-2017 Instruction Type:Provider Instructions for Treatment How to access health informa tion online Indication:Well woman exam with routine gynecological exam Start:07-Oct-2015 Instruction Type:Patient Education How to access health informa tion online - Detail Indication:Well woman exam with routine gynecological exam Start:07-Oct-2015 Instruction Type:Patient Education Patient Instructions Indication:Well woman exam with routine gynecological exam Start:07-Oct-2015 Instruction Type:Provider Instructions for Treatment Patient Instructions Indication:Well woman exam with routine gynecological exam Start:07-Sep-2014 Instruction Type:Provider Instructions for Treatment Patient Instructions Indication:Need for prophylactic vaccination and inoculation against influenza (Renamed from Need for immunization against influenza) Start:09-Aug-2014 Instruction Type:Provider Instructions for Treatment Patient Instructions Indication:Well woman exam with routine gynecological exam Start:05-Aug-2013 Instruction Type:Provider Instructions for Treatment Patient Instructions Indication:Acquired hypothyroidism Start:07-Jul-2013 Instruction Type:Provider Instructions for Treatment [facility]; [facility] Work Phone: Summary Purpose Family History No Family History Records FoundUnknown Family Member Name Dates Details 5 siblings- brother - primar y biliary cirrhosis- peripheral neuropathy- etoh gout Status:Active Father Comments:[id number] age 45- M I - smoker Status:Active Mother Comments: - copd smo ker- lung cancer- pulmonary embolism- age 79 Status:Active Son 1 Comments:ankylosing spondyli tis Status:Active Unknown Family Member Name Dates Details 5 siblings- brother - primar y biliary cirrhosis- peripheral neuropathy- etoh gout Status:Active Father Comments:[id number] age 45- M I - smoker Status:Active Mother Comments: - copd smo ker- lung cancer- pulmonary embolism- age 79 Status:Active Son 1 Comments:ankylosing spondyli tis Status:Active Unknown Family Member Name Dates Details 5 siblings- brother - primar y biliary cirrhosis- peripheral neuropathy- etoh gout Status:Active Father Comments:[id number] age 45- M I - smoker Status:Active Mother Comments: - copd smo ker- lung cancer- pulmonary embolism- age 79 Status:Active Son 1 Comments:ankylosing spondyli tis Status:Active Unknown Family Member Name Dates Details 5 siblings- brother - primar y biliary cirrhosis- peripheral neuropathy- etoh gout Status:Active Father Comments:[id number] age 45- M I - smoker Status:Active Mother Comments: - copd smo ker- lung cancer- pulmonary embolism- age 79 Status:Active Son 1 Comments:ankylosing spondyli tis Status:Active Unknown Family Member Name Dates Details 5 siblings- brother - primar y biliary cirrhosis- peripheral neuropathy- etoh gout Status:Active Father Comments:[id number] age 45- M I - smoker Status:Active Mother Comments: - copd smo ker- lung cancer- pulmonary embolism- age 79 Status:Active Son 1 Comments:ankylosing spondyli tis Status:Active Unknown Family Member Name Dates Details 5 siblings- brother - primar y biliary cirrhosis- peripheral neuropathy- etoh gout Status:Active Father Comments:[id number] age 45- M I - smoker Status:Active Mother Comments: - copd smo ker- lung cancer- pulmonary embolism- age 79 Status:Active Son 1 Comments:ankylosing spondyli tis Status:Active Unknown Family Member Name Dates Details 5 siblings- brother - primar y biliary cirrhosis- peripheral neuropathy- etoh gout Status:Active Father Comments:[id number] age 45- M I - smoker Status:Active Mother Comments: - copd smo ker- lung cancer- pulmonary embolism- age 79 Status:Active Son 1 Comments:ankylosing spondyli tis Status:Active Unknown Family Member Name Dates Details 5 siblings- brother - primar y biliary cirrhosis- peripheral neuropathy- etoh gout Status:Active Father Comments:[id number] age 45- M I - smoker Status:Active Mother Comments: - copd smo ker- lung cancer- pulmonary embolism- age 79 Status:Active Son 1 Comments:ankylosing spondyli tis Status:Active Unknown Family Member Name Dates Details 5 siblings- brother - primar y biliary cirrhosis- peripheral neuropathy- etoh gout Status:Active Father Comments:[id number] age 45- M I - smoker Status:Active Mother Comments: - copd smo ker- lung cancer- pulmonary embolism- age 79 Status:Active Son 1 Comments:ankylosing spondyli tis Status:Active Unknown Family Member Name Dates Details 5 siblings- brother - primar y biliary cirrhosis- peripheral neuropathy- etoh gout Status:Active Father Comments:[id number] age 45- M I - smoker Status:Active Mother Comments: - copd smo ker- lung cancer- pulmonary embolism- age 79 Status:Active Son 1 Comments:ankylosing spondyli tis Status:Active Unknown Family Member Name Dates Details 5 siblings- brother - primar y biliary cirrhosis- peripheral neuropathy- etoh gout Status:Active Father Comments:[id number] age 45- M I - smoker Status:Active Mother Comments: - copd smo ker- lung cancer- pulmonary embolism- age 79 Status:Active Son 1 Comments:ankylosing spondyli tis Status:Active Unknown Family Member Name Dates Details 5 siblings- brother - primar y biliary cirrhosis- peripheral neuropathy- etoh gout Status:Active Father Comments:[id number] age 45- M I - smoker Status:Active Mother Comments: - copd smo ker- lung cancer- pulmonary embolism- age 79 Status:Active Son 1 Comments:ankylosing spondyli tis Status:Active Unknown Family Member Name Dates Details 5 siblings- brother - primar y biliary cirrhosis- peripheral neuropathy- etoh gout Status:Active Father Comments:[id number] age 45- M I - smoker Status:Active Mother Comments: - copd smo ker- lung cancer- pulmonary embolism- age 79 Status:Active Son 1 Comments:ankylosing spondyli tis Status:Active Unknown Family Member Name Dates Details 5 siblings- brother - primar y biliary cirrhosis- peripheral neuropathy- etoh gout Status:Active Father Comments:[id number] age 45- M I - smoker Status:Active Mother Comments: - copd smo ker- lung cancer- pulmonary embolism- age 79 Status:Active Son 1 Comments:ankylosing spondyli tis Status:Active Unknown Family Member Name Dates Details 5 siblings- brother - primar y biliary cirrhosis- peripheral neuropathy- etoh gout Status:Active Father Comments:[id number] age 45- M I - smoker Status:Active Mother Comments: - copd smo ker- lung cancer- pulmonary embolism- age 79 Status:Active Son 1 Comments:ankylosing spondyli tis Status:Active Unknown Family Member Name Dates Details 5 siblings- brother - primar y biliary cirrhosis- peripheral neuropathy- etoh gout Status:Active Father Comments:[id number] age 45- M I - smoker Status:Active Mother Comments: - copd smo ker- lung cancer- pulmonary embolism- age 79 Status:Active Son 1 Comments:ankylosing spondyli tis Status:Active Unknown Family Member Name Dates Details 5 siblings- brother - primar y biliary cirrhosis- peripheral neuropathy- etoh gout Status:Active Father Comments:[id number] age 45- M I - smoker Status:Active Mother Comments: - copd smo ker- lung cancer- pulmonary embolism- age 79 Status:Active Son 1 Comments:ankylosing spondyli tis Status:Active Unknown Family Member Name Dates Details 5 siblings- brother - primar y biliary cirrhosis- peripheral neuropathy- etoh gout Status:Active Father Comments:[id number] age 45- M I - smoker Status:Active Mother Comments: - copd smo ker- lung cancer- pulmonary embolism- age 79 Status:Active Son 1 Comments:ankylosing spondyli tis Status:Active Unknown Family Member Name Dates Details 5 siblings- brother - primar y biliary cirrhosis- peripheral neuropathy- etoh gout Status:Active Father Comments:[id number] age 45- M I - smoker Status:Active Mother Comments: - copd smo ker- lung cancer- pulmonary embolism- age 79 Status:Active Son 1 Comments:ankylosing spondyli tis Status:Active Unknown Family Member Name Dates Details 5 siblings- brother - primar y biliary cirrhosis- peripheral neuropathy- etoh gout Status:Active Father Comments:[id number] age 45- M I - smoker Status:Active Mother Comments: - copd smo ker- lung cancer- pulmonary embolism- age 79 Status:Active Son 1 Comments:ankylosing spondyli tis Status:Active Advance Directives No Advanced Directives Records Found Name Dates Details Immunization Registry [place] - Effective on 02/08/2021. Expiration date unspecified Effective:08-Feb-2021 Name Dates Details Immunization Registry [place] - Effective on 02/08/2021. Expiration date unspecified Effective:08-Feb-2021 Name Dates Details Immunization Registry [place] - Effective on 02/08/2021. Expiration date unspecified Effective:08-Feb-2021 Name Dates Details Immunization Registry [place] - Effective on 02/08/2021. Expiration date unspecified Effective:08-Feb-2021 Name Dates Details Immunization Registry [place] - Effective on 02/08/2021. Expiration date unspecified Effective:08-Feb-2021 Name Dates Details Immunization Registry [place] - Effective on 02/08/2021. Expiration date unspecified Effective:08-Feb-2021 Name Dates Details Immunization Registry [place] - Effective on 02/08/2021. Expiration date unspecified Effective:08-Feb-2021 Name Dates Details Immunization Registry [place] - Effective on 02/08/2021. Expiration date unspecified Effective:08-Feb-2021 Name Dates Details Immunization Registry [place] - Effective on 02/08/2021. Expiration date unspecified Effective:08-Feb-2021 Name Dates Details Immunization Registry [place] - Effective on 02/08/2021. Expiration date unspecified Effective:08-Feb-2021 Name Dates Details Immunization Registry [place] - Effective on 02/08/2021. Expiration date unspecified Effective:08-Feb-2021 Name Dates Details Immunization Registry [place] - Effective on 02/08/2021. Expiration date unspecified Effective:08-Feb-2021 Name Dates Details Immunization Registry [place] - Effective on 02/08/2021. Expiration date unspecified Effective:08-Feb-2021 Instructions Name Dates Details BMI 23.0-23.9, adult : How t o access health information online Indication:BMI 23.0-23.9, adult BMI 23.0-23.9, adult : How t o access health information online - Detail Indication:BMI 23.0-23.9, adult BMI 23.0-23.9, adult : Patie nt Instructions Indication:BMI 23.0-23.9, adult Other hyperlipidemia : How t o access health information online Indication:Other hyperlipidemia Other hyperlipidemia : How t o access health information online - Detail Indication:Other hyperlipidemia Body mass index (BMI) 22.0-2 2.9, adult : Patient Instructions Indication:Body mass index (BMI) 22.0-22.9, adult Well woman exam with routine gynecological exam : How to access health information online Indication:Well woman exam with routine gynecological exam Well woman exam with routine gynecological exam : How to access health information online - Detail Indication:Well woman exam with routine gynecological exam Well woman exam with routine gynecological exam : Patient Instructions Indication:Well woman exam with routine gynecological exam Need for prophylactic vaccin ation and inoculation against influenza (Renamed from Need for immunization against influenza) : Patient Instructions Indication:Need for prophylactic vaccination and inoculation against influenza (Renamed from Need for immunization against influenza) Acquired hypothyroidism : Daniel mcdonaldnt Instructions Indication:Acquired hypothyroidism Name Dates Details Non-smoker : How to access h ealth information online Indication:Non-smoker Non-smoker : How to access h ealth information online - Detail Indication:Non-smoker Non-smoker : Patient Instruc tions Indication:Non-smoker BMI 23.0-23.9, adult : How t o access health information online Indication:BMI 23.0-23.9, adult BMI 23.0-23.9, adult : How t o access health information online - Detail Indication:BMI 23.0-23.9, adult BMI 23.0-23.9, adult : Patie nt Instructions Indication:BMI 23.0-23.9, adult Other hyperlipidemia : How t o access health information online Indication:Other hyperlipidemia Other hyperlipidemia : How t o access health information online - Detail Indication:Other hyperlipidemia Body mass index (BMI) 22.0-2 2.9, adult : Patient Instructions Indication:Body mass index (BMI) 22.0-22.9, adult Well woman exam with routine gynecological exam : How to access health information online Indication:Well woman exam with routine gynecological exam Well woman exam with routine gynecological exam : How to access health information online - Detail Indication:Well woman exam with routine gynecological exam Well woman exam with routine gynecological exam : Patient Instructions Indication:Well woman exam with routine gynecological exam Need for prophylactic vaccin ation and inoculation against influenza (Renamed from Need for immunization against influenza) : Patient Instructions Indication:Need for prophylactic vaccination and inoculation against influenza (Renamed from Need for immunization against influenza) Acquired hypothyroidism : Daniel thomas Instructions Indication:Acquired hypothyroidism Name Dates Details How to access health informa tion online Indication:Non-smoker Start:27-Apr-2020 Instruction Type:Patient Education How to access health informa tion online - Detail Indication:Non-smoker Start:27-Apr-2020 Instruction Type:Patient Education Patient Instructions Indication:Non-smoker Start:27-Apr-2020 Instruction Type:Provider Instructions for Treatment How to access health informa tion online Indication:BMI 23.0-23.9, adult Start:15-Jan-2020 Instruction Type:Patient Education How to access health informa tion online - Detail Indication:BMI 23.0-23.9, adult Start:15-Jan-2020 Instruction Type:Patient Education Patient Instructions Indication:BMI 23.0-23.9, adult Start:15-Jan-2020 Instruction Type:Provider Instructions for Treatment How to access health informa tion online Indication:Non-smoker Start:17-Dec-2018 Instruction Type:Patient Education How to access health informa tion online - Detail Indication:Non-smoker Start:17-Dec-2018 Instruction Type:Patient Education Patient Instructions Indication:Non-smoker Start:17-Dec-2018 Instruction Type:Provider Instructions for Treatment How to access health informa tion online Indication:BMI 23.0-23.9, adult Start:04-Nov-2017 Instruction Type:Patient Education How to access health informa tion online - Detail Indication:BMI 23.0-23.9, adult Start:04-Nov-2017 Instruction Type:Patient Education Patient Instructions Indication:BMI 23.0-23.9, adult Start:04-Nov-2017 Instruction Type:Provider Instructions for Treatment How to access health informa tion online Indication:Other hyperlipidemia Start:18-Mar-2017 Instruction Type:Patient Education How to access health informa tion online - Detail Indication:Other hyperlipidemia Start:18-Mar-2017 Instruction Type:Patient Education Patient Instructions Indication:Body mass index (BMI) 22.0-22.9, adult Start:18-Mar-2017 Instruction Type:Provider Instructions for Treatment How to access health informa tion online Indication:Well woman exam with routine gynecological exam Start:07-Oct-2015 Instruction Type:Patient Education How to access health informa tion online - Detail Indication:Well woman exam with routine gynecological exam Start:07-Oct-2015 Instruction Type:Patient Education Patient Instructions Indication:Well woman exam with routine gynecological exam Start:07-Oct-2015 Instruction Type:Provider Instructions for Treatment Patient Instructions Indication:Well woman exam with routine gynecological exam Start:07-Sep-2014 Instruction Type:Provider Instructions for Treatment Patient Instructions Indication:Need for prophylactic vaccination and inoculation against influenza (Renamed from Need for immunization against influenza) Start:09-Aug-2014 Instruction Type:Provider Instructions for Treatment Patient Instructions Indication:Well woman exam with routine gynecological exam Start:05-Aug-2013 Instruction Type:Provider Instructions for Treatment Patient Instructions Indication:Acquired hypothyroidism Start:07-Jul-2013 Instruction Type:Provider Instructions for Treatment Name Dates Details How to access health informa tion online Indication:Non-smoker Start:27-Apr-2020 Instruction Type:Patient Education How to access health informa tion online - Detail Indication:Non-smoker Start:27-Apr-2020 Instruction Type:Patient Education Patient Instructions Indication:Non-smoker Start:27-Apr-2020 Instruction Type:Provider Instructions for Treatment How to access health informa tion online Indication:BMI 23.0-23.9, adult Start:15-Jan-2020 Instruction Type:Patient Education How to access health informa tion online - Detail Indication:BMI 23.0-23.9, adult Start:15-Jan-2020 Instruction Type:Patient Education Patient Instructions Indication:BMI 23.0-23.9, adult Start:15-Jan-2020 Instruction Type:Provider Instructions for Treatment How to access health informa tion online Indication:Non-smoker Start:17-Dec-2018 Instruction Type:Patient Education How to access health informa tion online - Detail Indication:Non-smoker Start:17-Dec-2018 Instruction Type:Patient Education Patient Instructions Indication:Non-smoker Start:17-Dec-2018 Instruction Type:Provider Instructions for Treatment How to access health informa tion online Indication:BMI 23.0-23.9, adult Start:04-Nov-2017 Instruction Type:Patient Education How to access health informa tion online - Detail Indication:BMI 23.0-23.9, adult Start:04-Nov-2017 Instruction Type:Patient Education Patient Instructions Indication:BMI 23.0-23.9, adult Start:04-Nov-2017 Instruction Type:Provider Instructions for Treatment How to access health informa tion online Indication:Other hyperlipidemia Start:18-Mar-2017 Instruction Type:Patient Education How to access health informa tion online - Detail Indication:Other hyperlipidemia Start:18-Mar-2017 Instruction Type:Patient Education Patient Instructions Indication:Body mass index (BMI) 22.0-22.9, adult Start:18-Mar-2017 Instruction Type:Provider Instructions for Treatment How to access health informa tion online Indication:Well woman exam with routine gynecological exam Start:07-Oct-2015 Instruction Type:Patient Education How to access health informa tion online - Detail Indication:Well woman exam with routine gynecological exam Start:07-Oct-2015 Instruction Type:Patient Education Patient Instructions Indication:Well woman exam with routine gynecological exam Start:07-Oct-2015 Instruction Type:Provider Instructions for Treatment Patient Instructions Indication:Well woman exam with routine gynecological exam Start:07-Sep-2014 Instruction Type:Provider Instructions for Treatment Patient Instructions Indication:Need for prophylactic vaccination and inoculation against influenza (Renamed from Need for immunization against influenza) Start:09-Aug-2014 Instruction Type:Provider Instructions for Treatment Patient Instructions Indication:Well woman exam with routine gynecological exam Start:05-Aug-2013 Instruction Type:Provider Instructions for Treatment Patient Instructions Indication:Acquired hypothyroidism Start:07-Jul-2013 Instruction Type:Provider Instructions for Treatment Name Dates Details How to access health informa tion online Indication:Non-smoker Start:27-Apr-2020 Instruction Type:Patient Education How to access health informa tion online - Detail Indication:Non-smoker Start:27-Apr-2020 Instruction Type:Patient Education Patient Instructions Indication:Non-smoker Start:27-Apr-2020 Instruction Type:Provider Instructions for Treatment How to access health informa tion online Indication:BMI 23.0-23.9, adult Start:15-Jan-2020 Instruction Type:Patient Education How to access health informa tion online - Detail Indication:BMI 23.0-23.9, adult Start:15-Jan-2020 Instruction Type:Patient Education Patient Instructions Indication:BMI 23.0-23.9, adult Start:15-Jan-2020 Instruction Type:Provider Instructions for Treatment How to access health informa tion online Indication:Non-smoker Start:17-Dec-2018 Instruction Type:Patient Education How to access health informa tion online - Detail Indication:Non-smoker Start:17-Dec-2018 Instruction Type:Patient Education Patient Instructions Indication:Non-smoker Start:17-Dec-2018 Instruction Type:Provider Instructions for Treatment How to access health informa tion online Indication:BMI 23.0-23.9, adult Start:04-Nov-2017 Instruction Type:Patient Education How to access health informa tion online - Detail Indication:BMI 23.0-23.9, adult Start:04-Nov-2017 Instruction Type:Patient Education Patient Instructions Indication:BMI 23.0-23.9, adult Start:04-Nov-2017 Instruction Type:Provider Instructions for Treatment How to access health informa tion online Indication:Other hyperlipidemia Start:18-Mar-2017 Instruction Type:Patient Education How to access health informa tion online - Detail Indication:Other hyperlipidemia Start:18-Mar-2017 Instruction Type:Patient Education Patient Instructions Indication:Body mass index (BMI) 22.0-22.9, adult Start:18-Mar-2017 Instruction Type:Provider Instructions for Treatment How to access health informa tion online Indication:Well woman exam with routine gynecological exam Start:07-Oct-2015 Instruction Type:Patient Education How to access health informa tion online - Detail Indication:Well woman exam with routine gynecological exam Start:07-Oct-2015 Instruction Type:Patient Education Patient Instructions Indication:Well woman exam with routine gynecological exam Start:07-Oct-2015 Instruction Type:Provider Instructions for Treatment Patient Instructions Indication:Well woman exam with routine gynecological exam Start:07-Sep-2014 Instruction Type:Provider Instructions for Treatment Patient Instructions Indication:Need for prophylactic vaccination and inoculation against influenza (Renamed from Need for immunization against influenza) Start:09-Aug-2014 Instruction Type:Provider Instructions for Treatment Patient Instructions Indication:Well woman exam with routine gynecological exam Start:05-Aug-2013 Instruction Type:Provider Instructions for Treatment Patient Instructions Indication:Acquired hypothyroidism Start:07-Jul-2013 Instruction Type:Provider Instructions for Treatment Name Dates Details How to access health informa tion online Indication:Non-smoker Start:27-Apr-2020 Instruction Type:Patient Education How to access health informa tion online - Detail Indication:Non-smoker Start:27-Apr-2020 Instruction Type:Patient Education Patient Instructions Indication:Non-smoker Start:27-Apr-2020 Instruction Type:Provider Instructions for Treatment How to access health informa tion online Indication:BMI 23.0-23.9, adult Start:15-Jan-2020 Instruction Type:Patient Education How to access health informa tion online - Detail Indication:BMI 23.0-23.9, adult Start:15-Jan-2020 Instruction Type:Patient Education Patient Instructions Indication:BMI 23.0-23.9, adult Start:15-Jan-2020 Instruction Type:Provider Instructions for Treatment How to access health informa tion online Indication:Non-smoker Start:17-Dec-2018 Instruction Type:Patient Education How to access health informa tion online - Detail Indication:Non-smoker Start:17-Dec-2018 Instruction Type:Patient Education Patient Instructions Indication:Non-smoker Start:17-Dec-2018 Instruction Type:Provider Instructions for Treatment How to access health informa tion online Indication:BMI 23.0-23.9, adult Start:04-Nov-2017 Instruction Type:Patient Education How to access health informa tion online - Detail Indication:BMI 23.0-23.9, adult Start:04-Nov-2017 Instruction Type:Patient Education Patient Instructions Indication:BMI 23.0-23.9, adult Start:04-Nov-2017 Instruction Type:Provider Instructions for Treatment How to access health informa tion online Indication:Other hyperlipidemia Start:18-Mar-2017 Instruction Type:Patient Education How to access health informa tion online - Detail Indication:Other hyperlipidemia Start:18-Mar-2017 Instruction Type:Patient Education Patient Instructions Indication:Body mass index (BMI) 22.0-22.9, adult Start:18-Mar-2017 Instruction Type:Provider Instructions for Treatment How to access health informa tion online Indication:Well woman exam with routine gynecological exam Start:07-Oct-2015 Instruction Type:Patient Education How to access health informa tion online - Detail Indication:Well woman exam with routine gynecological exam Start:07-Oct-2015 Instruction Type:Patient Education Patient Instructions Indication:Well woman exam with routine gynecological exam Start:07-Oct-2015 Instruction Type:Provider Instructions for Treatment Patient Instructions Indication:Well woman exam with routine gynecological exam Start:07-Sep-2014 Instruction Type:Provider Instructions for Treatment Patient Instructions Indication:Need for prophylactic vaccination and inoculation against influenza (Renamed from Need for immunization against influenza) Start:09-Aug-2014 Instruction Type:Provider Instructions for Treatment Patient Instructions Indication:Well woman exam with routine gynecological exam Start:05-Aug-2013 Instruction Type:Provider Instructions for Treatment Patient Instructions Indication:Acquired hypothyroidism Start:07-Jul-2013 Instruction Type:Provider Instructions for Treatment Name Dates Details How to access health informa tion online Indication:Non-smoker Start:27-Apr-2020 Instruction Type:Patient Education How to access health informa tion online - Detail Indication:Non-smoker Start:27-Apr-2020 Instruction Type:Patient Education Patient Instructions Indication:Non-smoker Start:27-Apr-2020 Instruction Type:Provider Instructions for Treatment How to access health informa tion online Indication:BMI 23.0-23.9, adult Start:15-Jan-2020 Instruction Type:Patient Education How to access health informa tion online - Detail Indication:BMI 23.0-23.9, adult Start:15-Jan-2020 Instruction Type:Patient Education Patient Instructions Indication:BMI 23.0-23.9, adult Start:15-Jan-2020 Instruction Type:Provider Instructions for Treatment How to access health informa tion online Indication:Non-smoker Start:17-Dec-2018 Instruction Type:Patient Education How to access health informa tion online - Detail Indication:Non-smoker Start:17-Dec-2018 Instruction Type:Patient Education Patient Instructions Indication:Non-smoker Start:17-Dec-2018 Instruction Type:Provider Instructions for Treatment How to access health informa tion online Indication:BMI 23.0-23.9, adult Start:04-Nov-2017 Instruction Type:Patient Education How to access health informa tion online - Detail Indication:BMI 23.0-23.9, adult Start:04-Nov-2017 Instruction Type:Patient Education Patient Instructions Indication:BMI 23.0-23.9, adult Start:04-Nov-2017 Instruction Type:Provider Instructions for Treatment How to access health informa tion online Indication:Other hyperlipidemia Start:18-Mar-2017 Instruction Type:Patient Education How to access health informa tion online - Detail Indication:Other hyperlipidemia Start:18-Mar-2017 Instruction Type:Patient Education Patient Instructions Indication:Body mass index (BMI) 22.0-22.9, adult Start:18-Mar-2017 Instruction Type:Provider Instructions for Treatment How to access health informa tion online Indication:Well woman exam with routine gynecological exam Start:07-Oct-2015 Instruction Type:Patient Education How to access [employer] [place] online - Detail Indication:Well woman exam with routine gynecological exam Start:07-Oct-2015 Instruction Type:Patient Education Patient Instructions Indication:Well woman exam with routine gynecological exam Start:07-Oct-2015 Instruction Type:Provider Instructions for Treatment Patient Instructions Indication:Well woman exam with routine gynecological exam Start:07-Sep-2014 Instruction Type:Provider Instructions for Treatment Patient Instructions Indication:Need for prophylactic vaccination and inoculation against influenza (Renamed from Need for immunization against influenza) Start:09-Aug-2014 Instruction Type:Provider Instructions for Treatment Patient Instructions Indication:Well woman exam with routine gynecological exam Start:05-Aug-2013 Instruction Type:Provider Instructions for Treatment Patient Instructions Indication:Acquired hypothyroidism Start:07-Jul-2013 Instruction Type:Provider Instructions for Treatment Additional Source Comments INFORMATION SOURCE (unrecogn ized section and content) DATE CREATED AUTHOR AUTHOR'S ORGANIZ ATION 12/17/2018 [facility] DATE CREATED AUTHOR AUTHOR'S ORGANIZ ATION 12/21/2020 [facility] DATE CREATED AUTHOR AUTHOR'S ORGANIZ ATION 02/13/2021 [facility] DATE CREATED AUTHOR AUTHOR'S ORGANIZ ATION 02/24/2021 [facility] DATE CREATED AUTHOR AUTHOR'S ORGANIZ ATION 12/18/2021 [facility] DATE CREATED AUTHOR AUTHOR'S ORGANIZ ATION 09/20/2023 [facility] FOR RECORDS PERTAINING TO PATIENTS WHO ARE OR HAVE BEEN ENROLLED IN A CHEMICAL DEPENDENCY/SUBSTANCEABUSE PROGRAM, SOME INFORMATION MAY BE OMITTED. This clinical summary was aggregated from multiple sources. Caution should be exercised in using it in the provision of clinical care. This summary normalizes information from multiple sources, and as a consequence, information in this document may materially change the coding, format and clinical context of patient data. In addition, data may be omitted in some cases. CLINICAL DECISIONS SHOULD BE BASED ON THE PRIMARY CLINICAL RECORDS. [employer] provides no warranty or guarantee of the accuracy or completeness of information in this document.
--- NOTE | 2023-10-26 18:48 | CT_ITS ---
EXAM: CT ANGIOGRAPHY HEAD AND NECK WITHOUT AND WITH INTRAVENOUS CONTRAST CLINICAL INDICATION: dysarthria, NAUSEA,TINGLING BILAT ARMS AND LEGS,FACE AND MOUTH TODAY TECHNIQUE: [place] [facility] [employer]/head and neck CT angiography protocol performed without and with intravenous contrast. This CT exam was performed using one or more of the following dose reduction techniques: automated exposure control, adjustment of the mA and/or kV according to patient size, and/or use of iterative reconstruction technique. MIP reconstructed images were created and reviewed. Coronal and sagittal reformatted images were created and reviewed. CONTRAST: 100 ML ISOVUE 370 RADIATION DOSE: CTDIvol = 25.80 mGy, DLP = 1400.05 mGy-cm COMPARISON: No relevant prior studies available. FINDINGS: HEAD: RIGHT ANTERIOR CEREBRAL ARTERY: Unremarkable. No occlusion or significant stenosis. Anterior communicating artery is present. No aneurysm. RIGHT MIDDLE CEREBRAL ARTERY: Unremarkable. No occlusion or significant stenosis. No aneurysm. RIGHT POSTERIOR CEREBRAL ARTERY: Unremarkable. No occlusion or significant stenosis. No aneurysm. RIGHT INTRACRANIAL INTERNAL CAROTID ARTERY: Unremarkable. No significant stenosis. No dissection or occlusion. RIGHT INTRACRANIAL VERTEBRAL ARTERY: Unremarkable. No significant stenosis. No dissection or occlusion. LEFT ANTERIOR CEREBRAL ARTERY: Unremarkable. No occlusion or significant stenosis. No aneurysm. LEFT MIDDLE CEREBRAL ARTERY: Unremarkable. No occlusion or significant stenosis. No aneurysm. LEFT POSTERIOR CEREBRAL ARTERY: Unremarkable. No occlusion or significant stenosis. No aneurysm. LEFT INTRACRANIAL INTERNAL CAROTID ARTERY: Unremarkable. No significant stenosis. No dissection or occlusion. LEFT INTRACRANIAL VERTEBRAL ARTERY: Unremarkable. No significant stenosis. No dissection or occlusion. BASILAR ARTERY: Unremarkable. No occlusion or significant stenosis. No aneurysm. OTHER VASCULATURE: No vascular malformation. BRAIN AND EXTRA-AXIAL SPACES: Unremarkable. No intra- or extra-axial hemorrhage. No evidence of acute infarct. No intracranial mass or mass effect. There is preservation of the vasquez/white matter interface. Posterior fossa structures are unremarkable. Ventricles are appropriate for age. No hydrocephalus. Basal cisterns are patent. SINUSES: Unremarkable as visualized. Clear. MASTOID AIR CELLS: Unremarkable as visualized. Clear. ORBITS: Visualized globes, extraocular muscles, optic nerves and retrobulbar fat appear unremarkable. NECK: RIGHT COMMON CAROTID ARTERY: Unremarkable. No significant stenosis. No dissection or occlusion. RIGHT EXTRACRANIAL INTERNAL CAROTID ARTERY: Unremarkable. No significant stenosis. No dissection or occlusion. RIGHT EXTERNAL CAROTID ARTERY: Unremarkable. No occlusion. RIGHT EXTRACRANIAL VERTEBRAL ARTERY: Unremarkable. No significant stenosis. No dissection or occlusion. LEFT COMMON CAROTID ARTERY: Unremarkable. No significant stenosis. No dissection or occlusion. LEFT EXTRACRANIAL INTERNAL CAROTID ARTERY: Slight atherosclerosis. No significant stenosis. No dissection or occlusion. LEFT EXTERNAL CAROTID ARTERY: Unremarkable. No occlusion. LEFT EXTRACRANIAL VERTEBRAL ARTERY: Unremarkable. No significant stenosis. No dissection or occlusion. BRACHIOCEPHALIC AND SUBCLAVIAN ARTERIES: Unremarkable as visualized. No occlusion or significant stenosis. LUNG APICES: Unremarkable as visualized. HEAD and NECK: BONES/JOINTS: Degenerative arthrosis of the cervical spine. Posterior disc osteophyte complex at C5-C6 moderately narrows the spinal canal. No discrete lytic or blastic abnormalities. SOFT TISSUES: Unremarkable. CAROTID STENOSIS REFERENCE USING NASCET CRITERIA: % ICA stenosis = (1 - narrowest ICA diameter/diameter of distal cervical ICA) x 100. Mild - <50% stenosis. Moderate - 50-69% stenosis. Severe - 70-94% stenosis. Near occlusion - 95-99% stenosis. Occluded - 100% stenosis. CT/CTA Head AND Neck W/ Contrast IMPRESSION: No acute findings in the arteries of the head and neck. Electronically Signed: Gopal Plummer MD ([place]) at 20:01 EST Reading Location ID and State: [facility] [place] , Service support ,
--- NOTE | 2023-10-26 18:50 | EDS_ITS ---
HPI History of Present Illness Chief Complaint: Hypertension Informant: patient, spouse/S.O. and EMS Narrative Narrative: 67-year-old female presenting to the emergency room with a chief complaint of not feeling well. Patient states that she was riding in a car on [place] way [place] for about 15 minutes when she suddenly started to feel carsick by this she means nauseated. She she states that she then started to feel tingling in her bilateral arms and legs face and mouth. She states that about 10 minutes later she arrived at [place] where she felt very off balance walking into [facility]. She was at [facility] for about 10 minutes when she said that she felt like she may need some help. She states that she felt like her jaw was very tight and was having difficulty forming words. She states that her pulse felt much faster but when they eventually got her heart rate it was 110. She states that her blood pressure was over 200 which is not normal for her and is starting to come down. [facility] Medical History Breast cancer Hypercholesteremia Hypothyroid Home Medications alendronate 70 mg tablet (Fosamax) 70 mg PO QWEEK 10/26/23 [History Last Taken Unknown] calcium 600 mg-D3 20 mcg-magnesium 40 [id number] chew tablet (Caltrate- D3 Plus Minerals) 1 tab PO DAILY 10/26/23 [History Last Taken 10/26/23] coQ10 (liposomal ubiquinol) 100 mg/mL oral liquid (Cyto-Q Max) 200 mg PO QODAY 10/26/23 [History Last Taken 10/26/23] levothyroxine 75 mcg tablet (Euthyrox) 75 mcg PO DAILY 10/26/23 [History Last Taken Unknown] lovastatin 20 mg tablet,extended release 24 hr (Altoprev) 20 mg PO QHS 10/26/23 [History Last Taken Unknown] Allergy/AdvReac Type Severity Reaction Status Date / Time acetaminophen [From Vicodin] Allergy Itching Verified 10/26/23 18:02 hydrocodone [From Vicodin] Allergy Itching Verified 10/26/23 18:02 Surgical History H/O mastectomy H/O: hysterectomy Social History Smoking Status: Never smoker ROS ROS ED Constitutional Constitutional ED: Denies chills, fever(s) or weight loss Eyes Eyes: Denies change in vision or diplopia ENT ENT ED: Denies ear pain, rhinorrhea or sore throat Cardiovascular Cardiovascular: Reports palpitations and racing heartbeat; Denies chest pain or orthopnea Respiratory/Chest Respiratory/Chest: Denies cough, dyspnea or orthopnea Gastrointestinal Gastrointestinal: Denies abdominal pain, diarrhea, nausea or vomiting Genitourinary Genitourinary ED: Denies dysuria, hematuria or urinary frequency Musculoskeletal Musculoskeletal: Denies arthralgias or myalgias Integumentary Denies abscess or rash Neurologic Neurologic: Reports paresthesias, weakness and other Details: Jaw tightness Feeling of off balance ; Denies headache(s) Psychiatric Psychiatric: Denies anxiety, depression, suicidal ideation or suicidal thoughts Endocrine Endocrinology: Denies polydipsia, polyphagia or polyuria Allergic/Immunologic Allergic/Immunologic ED: Denies mouth swelling, tongue swelling or urticaria EXAM Physical Exam Const Vital Signs: 10/26/23 18:02 10/26/23 18:06 10/26/23 20:00 Temperature 96.1 F L Temperature Source Temporal Pulse Rate 88 77 Respiratory Rate 14 16 Respiratory Effort Normal Non-Labored Respiratory Pattern Normal Blood Pressure 161/84 H 159/73 H Blood Pressure Mean 109 101 Pulse Ox 100 99 Oxygen Delivery Method Room Air Room Air 10/26/23 20:33 10/26/23 21:50 Temperature Temperature Source Pulse Rate 74 71 Respiratory Rate 13 14 Respiratory Effort Respiratory Pattern Blood Pressure 136/71 H 126/70 H Blood Pressure Mean 92 88 Pulse Ox 98 84 Oxygen Delivery Method Room Air Positive well nourished and well developed General Appearance ED: well developed HEENT Reports normocephalic, head/scalp atraumatic and moist mucous membranes Eyes PERRL and EOMs intact bilaterally Neck no lymphadenopathy, supple and no JVD Resp normal respiratory effort and clear to auscultation bilaterally Cardio regular rate, regular rhythm and no murmurs GI normal to inspection, nondistended, normoactive bowel sounds and non-tender Palpation: soft Back/Spine no CVA tenderness and normal ROM Extremity normal to inspection General Extremety ED: Negative for edema General Extremity: Negative for edema Neuro oriented x3 and CN's II-XII intact bilaterally Sensorium / Orientation: alert Motor Exam: strength 5/5 throughout Psych mental status grossly normal Mood & Affect: Negative for depressed or tearful Skin no rashes or lesions noted and no wounds MDM MDM MDM Narrative Medical decision making narrative: NIH score of my examination is 0. Therefore I did not call a stroke team. CTA of the head and neck essentially negative. My independent interpretation of the chest x-ray is negative. White count 7.3 hemoglobin 12.2. Platelet count 298. Troponin 7.9 glucose 132. Without treatment her blood pressure has come down to normalize. She states her symptoms have essentially normalized. She has been up to bedside commode twice and states she has been feeling more steady on her feet. She is not feeling the tightness in her mouth of the dryness that is was making her having speech difficulty. Differential is wide in this patient. This could be nausea from car ride resulting in anxiety reaction. There could be hypertensive urgency. TIA is possible though the bilateral nature of the symptoms is confounding a neurologic syndrome. Spoke with the patient and her . I do not know if we will ever obtain a definitive answer for them. We talked about observation in the hospital versus outpatient follow-up. They understand that no MRI is available tomorrow and that if she would need an MRI it would not be until Saturday. They are hesitant to go home because they live far away and it would be at least an hour to get back to the hospital should she have return of symptoms or worsen. I spoke with our hospitalist and the patient will be admitted for observation. History & Record Review Discussion w/independent historian: EMS personnel, Patient and Significant other Lab Data Attestation: I reviewed the patient's lab results. Labs: Laboratory Results - last 24 hr 10/26/23 18:02 WBC 7.3 RBC 3.92 L Hgb 12.2 Hct 38.0 MCV 96.9 MCH 31.1 MCHC 32.1 RDW Std Deviation 45.7 H RDW Coeff of Kyrie 12.9 Plt Count 298 MPV 10.2 Immature Gran % (Auto) 0.100 Neut % (Auto) 38.8 L Lymph % (Auto) 53.4 H [place] % (Auto) 5.8 Eos % (Auto) 1.2 Baso % (Auto) 0.7 Absolute Neuts (auto) 2.8 Absolute Lymphs (auto) 3.88 Nucleated RBC % 0 Sodium 137 Potassium 3.7 Chloride 106 Carbon Dioxide 25.0 Anion Gap 6 BUN 27 H Creatinine 0.79 Estim Creat Clear Calc 65.88 Est GFR (MDRD) Af Amer 93 Est GFR (MDRD) Non-Af 77 BUN/Creatinine Ratio 34.3 H Glucose 132 H Calcium 8.6 Magnesium 2.5 Total Bilirubin 0.30 AST 22 ALT 25 Alkaline Phosphatase 74 Troponin I High Sens 7 Total Protein 7.0 Albumin 3.9 Globulin 3.1 Albumin/Globulin Ratio 1.3 Radiography Diagnostic Testing: Clinical Impression(s) from Imaging Studies Head/Neck CTA 10/26/23 18:48 IMPRESSION: No acute findings in the arteries of the head and neck. Electronically Signed: Gopal Plummer MD ([place]) at 20:01 EST , Chest X-Ray 10/26/23 19:45 IMPRESSION: Nonacute portable x-ray examination of the chest. Electronically Signed: Gopal Plummer MD ([place]) at 20:08 EST , EKG Initial EKG: Attestation: I personally reviewed and interpreted this EKG as follows: Comments: Normal sinus rhythm ventricular rate of 76 bpm Management Discussion w/another healthcare provider: Hospitalist Discharge Plan Disposition Disposition: Acute Care Hospital [facility] Discharge Date/Time: 10/26/23 22:22 NIHSS NIHSS 1a. Level of Consciousness: Alert; keenly responsive 1b. LOC Questions: Answers BOTH questions correctly. 1c. LOC Commands: Performs both tasks correctly. 2. Best Gaze: Normal 3. Visual: No visual loss 4. Facial Palsy: Normal symmetrical movements 5a. Left Arm: No drift; arm holds 90 (or 45) degrees for full 10 seconds 5b. Right Arm: No drift; arm holds 90 (or 45) degrees for full 10 seconds 6a. Left Leg: No drift; leg holds 30-degree position for full 5 seconds 6b. Right Leg: No drift; leg holds 30-degree position for full 5 seconds 7. Limb Ataxia: Absent 8. Sensory: Normal; no sensory loss 9. Best Language: No aphasia; normal 10. Dysarthria: Normal 11. Extinction and Inattention: No abnormality Total: 0 Stroke Questions Stroke Team Activated: No
[2023-10-26 19:10] LABS: Absolute Lymphocyte Count 3.88 X10^3/uL (0.83-4.51); Absolute Neutrophil Count 2.8 X10^3/uL (2.0-7.7); Basophil# 0.05 X10^3/uL; Basophil% 0.7 % (0-1); Eosinophil# 0.09 X10^3/uL; Eosinophils% 1.2 % (0-5); Hemoglobin 12.2 g/dL (12.0-15.0); Lymphocyte # 3.88 X10^3/ul (0.83-4.51); Lymphocyte % 53.4 % (19-41); Mean Corp Hgb Conc 32.1 g/dL (32-36); Mean Corpuscular Hgb 31.1 pg (27.0-32.0); Mean Corpuscular Volume 96.9 fL (81-99); Mean Platelet Vol. 10.2 fl (6.2-12.0); Monocyte# 0.42 X10^3/uL; Monocyte% 5.8 % (0-10); NRBC Flagged by Analyzer 0 % (0-5); Neutrophil # 2.81 X10^3/uL (2.7-7.7); Neutrophil % 38.8 % (47-70); Platelet Count 298 K/mm3 (150-450); RBC Distribution Width CV 12.9 % (11.6-14.6); RBC Distribution Width SD 45.7 fl (35.1-43.9); Red Blood Count 3.92 M/mm3 (4.2-5.4); White Blood Count 7.3 K/mm3 (4.4-11.0)
[2023-10-26 19:24] LABS: ALB/GLOB Ratio 1.3 RATIO (0.9-2.4); AST(SGOT) 22 U/L (15-37); Alanine Aminotransfer ALT/SGPT 25 U/L (13-56); Albumin, Serum 3.9 g/dL (3.2-5.0); Alkaline Phosphatase 74 U/L (45-117); Anion Gap 6 (5-15); BUN 27 mg/dL (7-18); BUN/Creat Ratio 34.3 RATIO (10-20); Calcium,Total 8.6 mg/dL (8.5-10.1); Chloride 106 mmol/L (98-107); Creatinine, Serum 0.79 mg/dL (0.55-1.02); EST Glomerular Filtration Rate 77 mL/min (>60); Est Glom Filt Rate - Afr Amer 93 mL/min (>60); Estimated Creatinine Clearance 65.88 ml/min; Globulin 3.1 g/dL (2.2-4.2); Glucose 132 mg/dL (74-106); Potassium 3.7 mmol/L (3.5-5.1); Sodium Level 137 mmol/L (136-145); Troponin-I HS 7 pg/mL (3.0-54.0)
--- NOTE | 2023-10-26 19:45 | RAD_ITS ---
STUDY: X-RAY CHEST REASON FOR EXAM: Female, 67 years old. hypertension TECHNIQUE: AP COMPARISON: None. FINDINGS: EKG leads project over the chest. The lungs are clear and expanded. There is no demonstrated pleural abnormality. Normal size heart. Normal mediastinum and radha. Normal visualized pulmonary arteries. Normal visualized aortic arch and descending thoracic aorta. Normal visualized thoracic spine. Normal visualized ribs, clavicles, and shoulders. There is no demonstrated abnormality of the visualized soft tissue structures of the upper abdomen. RAD/Chest 1 View (Portable) IMPRESSION: Nonacute portable x-ray examination of the chest. Electronically Signed: Gopal Plummer MD ([place]) at 20:08 EST ,
[2023-10-26 20:00] VITALS: BP 159/73; PULSE 77; RESP 16; O2SAT 99
[2023-10-26 20:33] VITALS: BP 136/71; PULSE 74; RESP 13; O2SAT 98
[2023-10-26 21:50] VITALS: BP 126/70; PULSE 71; RESP 14; O2SAT 84
[2023-10-26 22:00] VITALS: O2SAT 96
--- OUTSIDE RECORDS SUMMARY | 2023-10-26 22:11 | XMS RPT_ITS | CCD ---
Author Name Unknown Address [address] [place] [address] Organization [facility] Care Team Providers Care Retail Specialist Name Role Phone Joanne Monae Unavailable Unavailable [...] A Referring Unavailable Autumna Lisa Consulting Unavailable Dennis Monzon Unavailable Unavailable Manchak, Maisha Unavailable Unavailable Lis Abad Unavailable Unavailable Dennis Evangelista Unavailable Unavailable Unavailable Unavailable ESAU DESOUZA Attending Unavailable ESAU DESOUZA Primary Care Unavailable ESAU DESOUZA Admitting Unavailable DEOESAU PATTERSON Attending Unavailable ESAU DESOUZA Primary Care Unavailable DEOESAU Admitting Unavailable Ciesa JAIME Tess Unavailable Fast [...] Unavailable Ricky DO, Madison A Unavailable Ramon COIL CLEANER, Markos Unavailable [phone] Ramon COIL CLEANER, Markos Unavailable [phone] Lisa Mcneil Unavailable Ramon COIL CLEANER, Markos Unavailable [phone] Christian DO, Jennifer Unavailable [phone] Baltazar EXECUTIVE COORDINATOR, Kayela Unavailable Unavailable Loni Kaplan MA Unavailable Unavailable Slarb MANAGER ENTERPRISE CONTENT MANAGEMENT, Lenora Unavailable Unavailable Unavailable Unavailable RAMON, NO MARKOS Referring Unavailable RAMON, CLEMENTE BURROWS Attending Unavailable Allergies Allergy Classification Reported Allergen(s) Allergy Type Date of Onset Reaction(s) Facility Acetaminophen / HYDROcodone (1 source) Acetaminophen / HYDROcodone Drug Allergy [facility] Repository Acetaminophen / oxyCODONE (5 sources) Acetaminophen / oxyCODONE; Translations: [Percocet *ANALGESICS - OPIOID*] Drug Allergy Itching [facility]; [facility] Work Phone: Medications Completed/Discontinued Medications Medication Drug Class(es) Dates Sig (Normalized) Sig (Original) [id number] 200 actuat albuterol 0.09 mg/actuat metered dose [...] 09-05-2023 End: 09-06-2023 ambulatory NO MARKOS NAVARRO Facility:[id number] Start: 07-23-2023 End: 07-23-2023 Office outpatient visit 25 minutes Markos Navarro COIL CLEANER Work Phone: [facility] Start: 07-23-2023 [...] End: 02-08-2021 Patient encounter status Markos Navarro COIL CLEANER Work Phone: [facility] Start: 02-08-2021 End: 02-08-2021 Periodic preventive med est patient 65yrs& older Lisa Mcneil COIL CLEANER Work Phone: [facility] Start: 01-30-2021 Encounter for other preprocedural examination ESTELLE García CNP [facility] Start: 01-19-2021 End: 01-20-20[facility] Start: 01-16-2021 End: 01-17-2021 ambulatory ESTELLE García CNP [facility] Start: 11-21-2020 End: 11-21-2020 Patient encounter procedure ESAU Schrader [facility] Start: 10-28-2020 End: 10-28-2020 Patient encounter procedure ESAU Schrader [facility] Start: 09-05-2020 End: 09-05-2020 ambulatory NO PCP AA NO PCP [facility] Start: 04-27-2020 End: 04-27-2020 Office outpatient visit 15 minutes Lisa [facility] Start: 04-27-2020 Review Lisa Rodriguezsilvia Brandan [facility] Start: 02-16-2020 End: 02-16-2020 Annotation/Addendum Lisa Mcneil [facility] Start: 02-03-2020 End: 02-03-2020 Annotation/Addendum Lisa Mcneil [facility] Start: 01-25-2020 End: 01-25-2020 Phone Encounter Lisa Jennifersilvia [facility] Start: 01-23-2020 End: 01-23-2020 Annotation/Addendum Lisa Jennifersilvia [facility] Start: 01-15-2020 End: 01-15-2020 Office outpatient visit 25 minutes Lisa [facility] Start: 01-15-2020 End: 01-15-2020 Patient encounter procedure Markos Navarro CNP Work Phone: [facility] Start: 12-17-2018 Patient encounter procedure Lisa Mcneil [facility] Start: 12-17-2018 End: 12-17-2018 Annotation/Addendum Lisa Autumnfrancis [facility] Start: 12-17-2018 End: 12-17-2018 Patient encounter procedure Markos Navarro CNP Work Phone: [facility] Start: 12-17-2018 End: 12-17-2018 Patient encounter status Markos Navarro CNP Work Phone: [facility] Start: 12-17-2018 End: 12-17-2018 Periodic preventive med est patient 40-64yrs Lisa [facility] Start: 01-28-2018 End: 01-28-2018 Ambulatory Joanne Monae Facility:[facility] Start: 12-03-2017 End: 12-03-2017 Annotation/Addendum Lisa Mcneil [facility] Start: 11-04-2017 End: 11-04-2017 Patient encounter procedure Markos Landapuja SANDOVAL Work Phone: [facility] Start: 11-04-2017 End: 11-04-2017 Periodic preventive med est patient 40-64yrs Lisa Mcneil [facility] Start: 03-18-2017 End: 03-18-2017 Office outpatient visit 15 minutes Lisa Mcneil [facility] Start: 02-05-2017 End: 02-05-2017 Annotation/Addendum Lisa Mcneil [facility] Start: 02-04-2017 End: 02-04-2017 Phone Encounter Lisa Mcneil [facility] Start: 11-07-2016 End: 11-07-2016 Patient encounter procedure Lisa Leyvafrancis [facility] Start: 11-06-2016 End: 11-06-2016 Phone Encounter Lisa Mcneil [facility] Start: 11-02-2016 End: 11-02-2016 Lab Order Lisa Mcneil [facility] Start: 10-31-2016 End: 10-31-2016 Patient [...] End: 08-10-2014 Phone Encounter Lisa Leyvafrancis [facility] Start: 08-09-2014 End: 08-09-2014 Office outpatient visit 25 minutes Lisa Leyvafrancis [facility] Start: 06-15-2014 End: 06-15-2014 Phone Encounter Lisa Leyvafrancis [facility] Start: 08-05-2013 End: 08-06-2013 Medical examinations/reports status Markos Navarro COIL CLEANER Work Phone: [facility] Start: 08-05-2013 End: 08-06-2013 Patient encounter procedure Lisa Mcneil [facility] Start: 07-07-2013 End: 07-07-2013 Patient encounter procedure Lisa Mcneil [facility] Patient encounter procedure Dennis Evangelista MANAGER ENTERPRISE CONTENT MANAGEMENT [facility] Work Phone: Patient encounter procedure Dennis Evangelista LPN [facility] Work Phone: Patient encounter procedure Dennis Jean Carlos ENGLISHN [facility] Work Phone: Patient encounter procedure Ashley Ledesma CMA [facility] Work Phone: Patient encounter procedure Lenora Slarb MANAGER ENTERPRISE CONTENT MANAGEMENT [facility] Work Phone: Patient encounter procedure Lenora Slarb MANAGER ENTERPRISE CONTENT MANAGEMENT [facility] Work Phone: Patient encounter procedure Lenora Slarb MANAGER ENTERPRISE CONTENT MANAGEMENT [facility] Work Phone: Patient encounter status Lisa Mcneil COIL CLEANER Work Phone: [facility]; [facility] Work Phone: Patient encounter status Dennis Evangelista MANAGER ENTERPRISE CONTENT MANAGEMENT [facility] Work Phone: Patient encounter status Violetachana Delaney OR [facility]; [facility] Work Phone: Patient encounter status Lenora Slarb MANAGER ENTERPRISE CONTENT MANAGEMENT [facility] Work Phone: Patient encounter status Lenora Slarb MANAGER ENTERPRISE CONTENT MANAGEMENT [facility] Work Phone: Patient encounter status Lenora Slarb MANAGER ENTERPRISE CONTENT MANAGEMENT [facility] Work Phone: Procedures Date Procedure Procedure Detail Performing Clinician Arthroscopic knee operation Dennis Evangelista Arthroscopic knee operation Dennis Evangelista MANAGER ENTERPRISE CONTENT MANAGEMENT Arthroscopic knee operation Dennis Evangelista LPN Arthroscopic knee operation Violetachana Ledesma CMA Arthroscopic knee operation Lenora Slarb MANAGER ENTERPRISE CONTENT MANAGEMENT Arthroscopic knee operation Lenora Slarb MANAGER ENTERPRISE CONTENT MANAGEMENT Arthroscopic Knee [facility] - Left Lis L Long Arthroscopic Knee [facility] - Left Alba Hilario Arthroscopic Knee [facility] - Left Dennis Monzon H/O: hysterectomy Status post hysterectom y Lisa Mcneil [facility] Work Phone: Plan of Treatment Date Care [...] 25 hydroxy includes fractions if performed CALCIFEDIOL (35423) [facility]; [facility] Work Phone: Start: 07-23-2023 Lipid panel LIPID PANEL (91492) [facility]; [facility] Work Phone: Start: 07-23-2023 Urinalysis qual/semiquant except immunoassays URINALYSIS (33039) [facility]; [facility] Work Phone: Start: 07-23-2023 Blood count complete auto&auto difrntl wbc CBC, PLATELETS & AUT DIFF (87467) [facility]; [facility] Work Phone: Start: 07-23-2023 Assay of thyroid stimulating hormone tsh TSH (THYROID STIMULATING HORMONE) (19515) [facility]; [facility] Work Phone: Start: 07-23-2023 Comprehensive metabolic panel METABOLIC PANEL, COMPREHENSIVE (50536) [facility]; [facility] Work [...] id isolate ea urine URINE MORENO CULTURE-IDENTIFICATN (93259) [facility]; [facility] Work Phone: Start: 04-28-2021 Lipid panel LIPID PANEL (57230) [facility]; [facility] Work Phone: Start: 02-08-2021 Procedure Education Eprescribed prescriptions (G8553) [facility]; [facility] Work Phone: Start: 02-08-2021 Provider Instructions for Treatment [facility] Work Phone: Start: 02-08-2021 Assay of thyroid stimulating hormone tsh TSH (THYROID STIMULATING HORMONE) (42264) [facility]; [facility] Work Phone: Start: 04-27-2020 Procedure Education Eprescribed prescriptions (G8553) [facility] Work Phone: Start: 04-27-2020 Provider Instructions for Treatment Follow up if no improvement or if symptoms worsen [facility] Work Phone: Start: 01-25-2020 Lipid panel Lipid Panel (36856) [facility] Work Phone: Start: 01-25-2020 Hepatic function panel HEPATIC FUNCTION PANEL (60147) [facility] Work Phone: Start: 01-15-2020 [...] difrntl wbc CBC, Platelets & Auto Diff (40533) [facility] Work Phone: Start: 12-17-2018 Comprehensive metabolic panel Metabolic Panel, Comprehensive (00084) [facility] Work Phone: Start: 12-17-2018 Hpv, dna, amp probe HPV, Reflex (35925) [facility] Work Phone: Start: 12-17-2018 Thyrotropin Qn TSH (THYROID STIMULATING HORMONE) (21044) [facility] Work Phone: Start: 12-17-2018 Lipid panel LIPID PANEL (30663) [facility] Work Phone: Start: 12-17-2018 Cytp cerv/vag auto thin layer prep mnl screen Thin prep Pap (38251) (no STD testing) [facility] Work Phone: Start: 11-04-2017 Procedure Education Eprescribed prescriptions (G8553) [facility] Work Phone: Start: 11-04-2017 Provider Instructions for Treatment [facility] Work Phone: Start: 11-04-2017 Cytp cerv/vag auto thin layer prep mnl screen Thin prep Pap (83290) (no STD testing) [facility] Work Phone: Start: 03-18-2017 Procedure Education Eprescribed prescriptions (G8553) [facility] Work Phone: Start: 03-18-2017 Provider Instructions for Treatment Follow up in Oct 2017 get labs in Dec fasting [facility] Work Phone: Start: 03-18-2017 Blood count complete auto&auto difrntl wbc CBC, Platelets & Auto Diff (03919) [facility] Work Phone: Immunizations Immunization Date Immunization Notes Care Provider Yolis hunter 07-23-2023 influenza, injectabl e, quadrivalent, contains preservative Markos Ramon COIL CLEANER Work Phone: [facility]; [facility] Work Phone: Payers Date Payer Category Payer Unknown 2016 Unknown [id number] 2015 Unknown [id number] 2012 Unknown [id number] 1960 Medicare [id number] 1960 Medicare [id number] 1954 Unknown [id number] [id number] 1954 Unknown [id number] [id number] [id number] 1954 Unknown [id number] [id number] [id number] 1954 Unknown [id number] 2.16.8 [id number] 1954 Unknown [id number] 2.16.8 [id number] 1954 Unknown [id number] 2.16.8 [id number] 1954 Unknown [id number] 2.16.8 [id number] Medicare Unknown [id number] Social History Date Type Detail Facility Alcohol [...] [facility]; [facility] Work Phone: [phone]) 645-445901-12-2022 NoteHNO ID: [id number] Author: Tariq Gary MD Service: ? 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 [...] in 12 months, sooner prn Continue with [facility] for regular health care needs Tariq Gary MD I spent a total of 45 minutes on the date of service which included preparing to see the patient, [id number] patient care, completing clinical documentation, performing a medically appropriate examination, counseling and educating the patient/family/caregiver and ordering medications, tests, or procedures.[facility]* Name Dates Details Patient Instructions Indication:Other hyperlipidemia Start:08-Feb-2021 Instruction Type:Provider Instructions for Treatment How to Access [employer] Online using Patient Portal and 3rd [employer] Party Apps Indication:Non-smoker Start:08-Feb-2021 Instruction Type:Patient Education How [...] Informa tion Online using Patient Portal and NoWait Apps Indication:Non-smoker Start:08-Feb-2021 Instruction Type:Patient Education How [...] Informa tion Online using Patient Portal and PlaceBlogger [employer] Party Apps Indication:Non-smoker Start:08-Feb-2021 Instruction Type:Patient Education How [...] tion Online using Patient Portal and 3rd [employer] Apps Indication:Non-smoker Start:08-Feb-2021 Instruction Type:Patient Education How [...] tion Online using Patient Portal and 3rd [employer] Apps Indication:Non-smoker Start:08-Feb-2021 Instruction Type:Patient Education How [...] Informa tion Online using Patient Portal and PlaceBlogger [employer] Apps Indication:Non-smoker Start:08-Feb-2021 Instruction Type:Patient Education How [...] tion Online using Patient Portal and 3rd [employer] Apps Indication:Non-smoker Start:06-Apr-2022 Instruction Type:Patient Education Patient Instructions Indication:Other hyperlipidemia Start:08-Feb-2021 Instruction Type:Provider Instructions for Treatment How to Access Health Informa tion Online using Patient Portal and NoWait Apps Indication:Non-smoker Start:08-Feb-2021 Instruction Type:Patient Education How [...] tion Online using Patient Portal and 3rd [employer] Apps Indication:BMI 23.0-23.9, adult Start:15-May-2022 Instruction Type:Patient Education Patient Instructions Indication:Non-smoker Start:06-Apr-2022 Instruction Type:Provider Instructions for Treatment How to Access Health Informa tion Online using Patient Portal and 3rd [employer] Apps Indication:Non-smoker Start:06-Apr-2022 Instruction Type:Patient Education Patient Instructions Indication:Other hyperlipidemia Start:08-Feb-2021 Instruction Type:Provider Instructions for Treatment How to Access Health Informa tion Online using Patient Portal and 3rd [employer] Apps Indication:Non-smoker Start:08-Feb-2021 Instruction Type:Patient Education How [...] tion Online using Patient Portal and 3rd [employer] Apps Indication:Non-smoker Start:03-Sep-2022 Instruction Type:Patient Education Patient Instructions Indication:Non-smoker Start:31-Aug-2022 Instruction Type:Provider Instructions for Treatment How to Access Health Informa tion Online using Patient Portal and 3rd [employer] Apps Indication:Non-smoker Start:31-Aug-2022 Instruction Type:Patient Education Patient Instructions Indication:BMI 23.0-23.9, adult Start:15-May-2022 Instruction Type:Provider Instructions for Treatment How to Access Health Informa tion Online using Patient Portal and 3rd [employer] Apps Indication:BMI 23.0-23.9, adult Start:15-May-2022 Instruction Type:Patient Education Patient Instructions Indication:Non-smoker Start:06-Apr-2022 Instruction Type:Provider Instructions for Treatment How to Access Health Informa tion Online using Patient Portal and 3rd [employer] Apps Indication:Non-smoker Start:06-Apr-2022 Instruction Type:Patient Education Patient Instructions Indication:Other hyperlipidemia Start:08-Feb-2021 Instruction Type:Provider Instructions for Treatment How to Access Health Informa tion Online using Patient Portal and 3rd [employer] Apps Indication:Non-smoker Start:08-Feb-2021 Instruction Type:Patient Education How [...] tion Online using Patient Portal and 3rd [employer] Apps Indication:Non-smoker Start:03-Sep-2022 Instruction Type:Patient Education Patient Instructions Indication:Non-smoker Start:31-Aug-2022 Instruction Type:Provider Instructions for Treatment How to Access Health Informa tion Online using Patient Portal and 3rd [employer] Apps Indication:Non-smoker Start:31-Aug-2022 Instruction Type:Patient Education Patient Instructions Indication:BMI 23.0-23.9, adult Start:15-May-2022 Instruction Type:Provider Instructions for Treatment How to Access Health Informa tion Online using Patient Portal and 3rd [employer] Apps Indication:BMI 23.0-23.9, adult Start:15-May-2022 Instruction Type:Patient Education Patient Instructions Indication:Non-smoker Start:06-Apr-2022 Instruction Type:Provider Instructions for Treatment How to Access Health Informa tion Online using Patient Portal and 3rd [employer] Apps Indication:Non-smoker Start:06-Apr-2022 Instruction Type:Patient Education Patient Instructions Indication:Other hyperlipidemia Start:08-Feb-2021 Instruction Type:Provider Instructions for Treatment How to Access Health Informa tion Online using Patient Portal and 3rd [employer] Apps Indication:Non-smoker Start:08-Feb-2021 Instruction Type:Patient Education How [...] tion Online using Patient Portal and 3rd [employer] Apps Indication:Non-smoker Start:03-Sep-2022 Instruction Type:Patient Education Patient Instructions Indication:Non-smoker Start:31-Aug-2022 Instruction Type:Provider Instructions for Treatment How to Access Health Informa tion Online using Patient Portal and 3rd [employer] Apps Indication:Non-smoker Start:31-Aug-2022 Instruction Type:Patient Education Patient Instructions Indication:BMI 23.0-23.9, adult Start:15-May-2022 Instruction Type:Provider Instructions for Treatment How to Access Health Informa tion Online using Patient Portal and 3rd [employer] Apps Indication:BMI 23.0-23.9, adult Start:15-May-2022 Instruction Type:Patient Education Patient Instructions Indication:Non-smoker Start:06-Apr-2022 Instruction Type:Provider Instructions for Treatment How to Access Health Informa tion Online using Patient Portal and 3rd [employer] Apps Indication:Non-smoker Start:06-Apr-2022 Instruction Type:Patient Education Patient Instructions Indication:Other hyperlipidemia Start:08-Feb-2021 Instruction Type:Provider Instructions for Treatment How to Access Health Informa tion Online using Patient Portal and 3rd [employer] Apps Indication:Non-smoker Start:08-Feb-2021 Instruction Type:Patient Education How [...] tion Online using Patient Portal and 3rd [employer] Apps Indication:Non-smoker Start:23-Jul-2023 Instruction Type:Patient Education Patient Instructions Indication:Non-smoker Start:23-Jul-2023 Instruction Type:Provider Instructions for Treatment Patient Instructions Indication:Non-smoker Start:03-Sep-2022 Instruction Type:Provider Instructions for Treatment How to Access Health Informa tion Online using Patient Portal and 3rd [employer] Apps Indication:Non-smoker Start:03-Sep-2022 Instruction Type:Patient Education Patient Instructions Indication:Non-smoker Start:31-Aug-2022 Instruction Type:Provider Instructions for Treatment How to Access Health Informa tion Online using Patient Portal and 3rd [employer] Apps Indication:Non-smoker Start:31-Aug-2022 Instruction Type:Patient Education Patient Instructions Indication:BMI 23.0-23.9, adult Start:15-May-2022 Instruction Type:Provider Instructions for Treatment How to Access Health Informa tion Online using Patient Portal and 3rd [employer] Apps Indication:BMI 23.0-23.9, adult Start:15-May-2022 Instruction Type:Patient Education Patient Instructions Indication:Non-smoker Start:06-Apr-2022 Instruction Type:Provider Instructions for Treatment How to Access Health Informa tion Online using Patient Portal and 3rd [employer] Apps Indication:Non-smoker Start:06-Apr-2022 Instruction Type:Patient Education Patient Instructions Indication:Other hyperlipidemia Start:08-Feb-2021 Instruction Type:Provider Instructions for Treatment How to Access Health Informa tion Online using Patient Portal and 3rd [employer] Apps Indication:Non-smoker Start:08-Feb-2021 Instruction Type:Patient Education How [...] tion Online using Patient Portal and 3rd [employer] Apps Indication:Non-smoker Start:23-Jul-2023 Instruction Type:Patient Education Patient Instructions Indication:Non-smoker Start:23-Jul-2023 Instruction Type:Provider Instructions for Treatment Patient Instructions Indication:Non-smoker Start:03-Sep-2022 Instruction Type:Provider Instructions for Treatment How to Access Health Informa tion Online using Patient Portal and 3rd [employer] Apps Indication:Non-smoker Start:03-Sep-2022 Instruction Type:Patient Education Patient Instructions Indication:Non-smoker Start:31-Aug-2022 Instruction Type:Provider Instructions for Treatment How to Access Health Informa tion Online using Patient Portal and 3rd [employer] Apps Indication:Non-smoker Start:31-Aug-2022 Instruction Type:Patient Education Patient Instructions Indication:BMI 23.0-23.9, adult Start:15-May-2022 Instruction Type:Provider Instructions for Treatment How to Access Health Informa tion Online using Patient Portal and 3rd [employer] Apps Indication:BMI 23.0-23.9, adult Start:15-May-2022 Instruction Type:Patient Education Patient Instructions Indication:Non-smoker Start:06-Apr-2022 Instruction Type:Provider Instructions for Treatment How to Access Health Informa tion Online using Patient Portal and 3rd [employer] Apps Indication:Non-smoker Start:06-Apr-2022 Instruction Type:Patient Education Patient Instructions Indication:Other hyperlipidemia Start:08-Feb-2021 Instruction Type:Provider Instructions for Treatment How to Access Health Informa tion Online using Patient Portal and 3rd [employer] Apps Indication:Non-smoker Start:08-Feb-2021 Instruction Type:Patient Education How [...] cirrhosis- peripheral neuropathy- etoh gout Status:Active Father Comments:[id number] age 45- M I - smoker Status:Active Mother Comments: - copd smo ker- lung cancer- pulmonary embolism- age 78 Status:Active Son 1 Comments:ankylosing spondyli tis Status:Active Unknown Family Member Name Dates Details 5 siblings- brother - primar y biliary cirrhosis- peripheral neuropathy- etoh gout Status:Active Father Comments:[id number] age 45- M I - smoker Status:Active Mother Comments: - copd smo ker- lung cancer- pulmonary embolism- age 79 Status:Active Son 1 Comments:ankylosing spondyli tis Status:Active Unknown Family Member Name Dates Details 5 siblings- brother - primar y biliary cirrhosis- peripheral neuropathy- etoh gout Status:Active Father Comments:[id number] age 45- M I - smoker Status:Active Mother Comments: - copd smo ker- lung cancer- pulmonary embolism- age 79 Status:Active Son 1 Comments:ankylosing spondyli tis Status:Active Unknown Family Member Name Dates Details 5 siblings- brother - primar y biliary cirrhosis- peripheral neuropathy- etoh gout Status:Active Father Comments:[id number] age 45- M I - smoker Status:Active Mother Comments: - copd smo ker- lung cancer- pulmonary embolism- age 79 Status:Active Son 1 Comments:ankylosing spondyli tis Status:Active Unknown Family Member Name Dates Details 5 siblings- brother - primar y biliary cirrhosis- peripheral neuropathy- etoh gout Status:Active Father Comments:[id number] age 45- M I - smoker Status:Active Mother Comments: - copd smo ker- lung cancer- pulmonary embolism- age 79 Status:Active Son 1 Comments:ankylosing spondyli tis Status:Active Unknown Family Member Name Dates Details 5 siblings- brother - primar y biliary cirrhosis- peripheral neuropathy- etoh gout Status:Active Father Comments:[id number] age 45- M I - smoker Status:Active Mother Comments: - copd smo ker- lung cancer- pulmonary embolism- age 79 Status:Active Son 1 Comments:ankylosing spondyli tis Status:Active Unknown Family Member Name Dates Details 5 siblings- brother - primar y biliary cirrhosis- peripheral neuropathy- etoh gout Status:Active Father Comments:[id number] age 45- M I - smoker Status:Active Mother Comments: - copd smo ker- lung cancer- pulmonary embolism- age 79 Status:Active Son 1 Comments:ankylosing spondyli tis Status:Active Unknown Family Member Name Dates Details 5 siblings- brother - primar y biliary cirrhosis- peripheral neuropathy- etoh gout Status:Active Father Comments:[id number] age 45- M I - smoker Status:Active Mother Comments: - copd smo ker- lung cancer- pulmonary embolism- age 79 Status:Active Son 1 Comments:ankylosing spondyli tis Status:Active Unknown Family Member Name Dates Details 5 siblings- brother - primar y biliary cirrhosis- peripheral neuropathy- etoh gout Status:Active Father Comments:[id number] age 45- M I - smoker Status:Active Mother Comments: - copd smo ker- lung cancer- pulmonary embolism- age 79 Status:Active Son 1 Comments:ankylosing spondyli tis Status:Active Unknown Family Member Name Dates Details 5 siblings- brother - primar y biliary cirrhosis- peripheral neuropathy- etoh gout Status:Active Father Comments:[id number] age 45- M I - smoker Status:Active Mother Comments: - copd smo ker- lung cancer- pulmonary embolism- age 79 Status:Active Son 1 Comments:ankylosing spondyli tis Status:Active Unknown Family Member Name Dates Details 5 siblings- brother - primar y biliary cirrhosis- peripheral neuropathy- etoh gout Status:Active Father Comments:[id number] age 45- M I - smoker Status:Active Mother Comments: - copd smo ker- lung cancer- pulmonary embolism- age 79 Status:Active Son 1 Comments:ankylosing spondyli tis Status:Active Unknown Family Member Name Dates Details 5 siblings- brother - primar y biliary cirrhosis- peripheral neuropathy- etoh gout Status:Active Father Comments:[id number] age 45- M I - smoker Status:Active Mother Comments: - copd smo ker- lung cancer- pulmonary embolism- age 79 Status:Active Son 1 Comments:ankylosing spondyli tis Status:Active Unknown Family Member Name Dates Details 5 siblings- brother - primar y biliary cirrhosis- peripheral neuropathy- etoh gout Status:Active Father Comments:[id number] age 45- M I - smoker Status:Active Mother Comments: - copd smo ker- lung cancer- pulmonary embolism- age 79 Status:Active Son 1 Comments:ankylosing spondyli tis Status:Active Unknown Family Member Name Dates Details 5 siblings- brother - primar y biliary cirrhosis- peripheral neuropathy- etoh gout Status:Active Father Comments:[id number] age 45- M I - smoker Status:Active Mother Comments: - copd smo ker- lung cancer- pulmonary embolism- age 79 Status:Active Son 1 Comments:ankylosing spondyli tis Status:Active Unknown Family Member Name Dates Details 5 siblings- brother - primar y biliary cirrhosis- peripheral neuropathy- etoh gout Status:Active Father Comments:[id number] age 45- M I - smoker Status:Active Mother Comments: - copd smo ker- lung cancer- pulmonary embolism- age 79 Status:Active Son 1 Comments:ankylosing spondyli tis Status:Active Unknown Family Member Name Dates Details 5 siblings- brother - primar y biliary cirrhosis- peripheral neuropathy- etoh gout Status:Active Father Comments:[id number] age 45- M I - smoker Status:Active Mother Comments: - copd smo ker- lung cancer- pulmonary embolism- age 79 Status:Active Son 1 Comments:ankylosing spondyli tis Status:Active Unknown Family Member Name Dates Details 5 siblings- brother - primar y biliary cirrhosis- peripheral neuropathy- etoh gout Status:Active Father Comments:[id number] age 45- M I - smoker Status:Active Mother Comments: - copd smo ker- lung cancer- pulmonary embolism- age 79 Status:Active Son 1 Comments:ankylosing spondyli tis Status:Active Unknown Family Member Name Dates Details 5 siblings- brother - primar y biliary cirrhosis- peripheral neuropathy- etoh gout Status:Active Father Comments:[id number] age 45- M I - smoker Status:Active Mother Comments: - copd smo ker- lung cancer- pulmonary embolism- age 79 Status:Active Son 1 Comments:ankylosing spondyli tis Status:Active Unknown Family Member Name Dates Details 5 siblings- brother - primar y biliary cirrhosis- peripheral neuropathy- etoh gout Status:Active Father Comments:[id number] age 45- M I - smoker Status:Active Mother Comments: - copd smo ker- lung cancer- pulmonary embolism- age 79 Status:Active Son 1 Comments:ankylosing spondyli tis Status:Active Unknown Family Member Name Dates Details 5 siblings- brother - primar y biliary cirrhosis- peripheral neuropathy- etoh gout Status:Active Father Comments:[id number] age 45- M I - smoker Status:Active Mother Comments: - copd smo ker- lung cancer- pulmonary embolism- age 79 Status:Active Son 1 Comments:ankylosing spondyli tis Status:Active Advance Directives No Advanced Directives Records Found Name Dates Details Immunization Registry [place] - Effective on 02/08/2021. Expiration date unspecified Effective:08-Feb-2021 Name Dates Details Immunization Registry [place] - Effective on 02/08/2021. Expiration date unspecified Effective:08-Feb-2021 Name Dates Details Immunization Registry [place] - Effective on 02/08/2021. Expiration date unspecified Effective:08-Feb-2021 Name Dates Details Immunization Registry [place] - Effective on 02/08/2021. Expiration date unspecified Effective:08-Feb-2021 Name Dates Details Immunization Registry [place] - Effective on 02/08/2021. Expiration date unspecified Effective:08-Feb-2021 Name Dates Details Immunization Registry [place] - Effective on 02/08/2021. Expiration date unspecified Effective:08-Feb-2021 Name Dates Details Immunization Registry [place] - Effective on 02/08/2021. Expiration date unspecified Effective:08-Feb-2021 Name Dates Details Immunization Registry [place] - Effective on 02/08/2021. Expiration date unspecified Effective:08-Feb-2021 Name Dates Details Immunization Registry [place] - Effective on 02/08/2021. Expiration date unspecified Effective:08-Feb-2021 Name Dates Details Immunization Registry [place] - Effective on 02/08/2021. Expiration date unspecified Effective:08-Feb-2021 Name Dates Details Immunization Registry [place] - Effective on 02/08/2021. Expiration date unspecified Effective:08-Feb-2021 Name Dates Details Immunization Registry [place] - Effective on 02/08/2021. Expiration date unspecified Effective:08-Feb-2021 Name Dates Details Immunization Registry [place] - Effective on 02/08/2021. Expiration date unspecified [...] Start:07-Oct-2015 Instruction Type:Patient Education How to access [employer] online - Detail Indication:Well woman exam with [...] DATE CREATED AUTHOR AUTHOR'S ORGANIZ ATION 12/17/2018 [facility] DATE CREATED AUTHOR AUTHOR'S ORGANIZ ATION 12/21/2020 [facility] DATE CREATED AUTHOR AUTHOR'S ORGANIZ ATION 02/13/2021 [facility] DATE CREATED AUTHOR AUTHOR'S ORGANIZ ATION 02/24/2021 [facility] DATE CREATED AUTHOR AUTHOR'S ORGANIZ ATION 12/18/2021 [facility] DATE CREATED AUTHOR AUTHOR'S ORGANIZ ATION 09/20/2023 [facility] FOR RECORDS PERTAINING TO PATIENTS WHO [...] BE BASED ON THE PRIMARY CLINICAL RECORDS. [employer] provides no warranty or guarantee of the accuracy or completeness of information in this document.
--- NOTE | 2023-10-26 22:20 | HP.PCM.HOS_ITS ---
HPI - General General Date of Admission: 10/26/23 Date of Service: 10/26/23 Chief Complaint: Transient paresthesias, disequilibrium and questionable expressive aphasia, motion sickness initially. HPI Narrative The patient is a 67 y/o F w/ PMHx: Hx Breast CA unclear type s/p R mastectomy, HLD, Hypothyroidism, Former tobacco use who presents to the [facility] ED on 10/26/23 with history of onset earlier in the day while riding as a passenger in the car motion sickness type symptoms with nausea with then onset of bilateral arm primarily fingers and hands as well as feet, face and perioral paresthesias which lasted approximately 10 minutes after which she arrived at [facility] and was able to get out but felt very off balance when she was walking and while in [facility] for at least 10 to 20 minutes she felt like she was having difficulty forming words and was tachycardic and felt as though her pulse was racing prompting her to become very anxious with eventual ED evaluation to be cautious. She notes complete resolution of all symptoms. She denies any recent illnesses. Her NIH stroke scale assessment initially upon ED arrival was 0 and repeat assessments were similar. Workup in the ED included T96.1, heart rate 88, BP initially 161/84 with most recent repeat 126/70, respiratory rate 14, 100% room air, per patient report when this occurred she had a blood pressure assessment and reported her systolic near 200 but she reportedly although she was reportedly very anxious at the time. Additional workup in the ED included CBC with WBC 7.3, hemoglobin 12.2, platelet 298 without marked shift, CMP with glucose 132 otherwise not marked appearing, chest x-ray with no acute cardiopulmonary findings, CTA head and neck without any acute findings, EKG was sinus rhythm with no acute evidence of ischemia with noted degenerative arthrosis of the cervical spine with a posterior disc osteophyte complex at C5-6 moderately narrowing the spinal canal. [facility] Medical History (Updated 10/27/23 @ 01:[address] Olya Smith MD) Breast cancer Former tobacco use Hypercholesteremia Hypothyroid Osteoporosis Home Medications alendronate 70 mg tablet (Fosamax) 70 mg PO QWEEK 10/26/23 [History Last Taken 10/20/23] calcium 600 mg-D3 20 mcg-magnesium 40 sp-onabed-vayg-zinc chew tablet (Caltrate- D3 Plus Minerals) 1 tab PO DAILY 10/26/23 [History Last Taken 10/26/23] coQ10 (liposomal ubiquinol) 100 mg/mL oral liquid (Cyto-Q Max) 200 mg PO QODAY 10/26/23 [History Last Taken 10/25/23] levothyroxine 75 mcg tablet (Euthyrox) 75 mcg PO DAILY 10/26/23 [History Last Taken 10/26/23] lovastatin 20 mg tablet,extended release 24 hr (Altoprev) 20 mg PO QHS 10/26/23 [History Last Taken 10/25/23] Allergy/AdvReac Type Severity Reaction Status Date / Time acetaminophen [From Vicodin] Allergy Itching Verified 10/26/23 18:02 hydrocodone [From Vicodin] Allergy Itching Verified 10/26/23 18:02 Family History (Updated 10/27/23 @ 01:[address] Olya Smith MD) Father , Complications MA age 45. Heart disease Hypertension CAD (coronary artery disease) Myocardial infarction Mother Dementia Lung cancer COPD (chronic obstructive pulmonary disease) Surgical History (Updated 10/27/23 @ 01:[address] Olya Smith MD) H/O mastectomy H/O: hysterectomy Status post arthroscopy of right shoulder Social History (Updated 10/27/23 @ 01:[address] Olya Smith MD) household members: spouse Smoking Status: Former smoker how long ago did patient quit smoking: Smoked [age] years old, 1 ppd. alcohol intake: current alcohol intake frequency: 0-2 drinks per day Alcohol type: hard liquor details: Drinks 1 vodka mixed drink daily. substance use type: does not use ROS ROS Narrative Admission Review of Systems: CONSTITUTIONAL: No weight loss, fever, chills, + weakness or fatigue. HEENT: Eyes: No visual loss, blurred vision, double vision or yellow sclerae. Ears, Nose, Throat: No hearing loss, sneezing, congestion, runny nose or sore throat. SKIN: No rash or itching, lesions, wounds. CARDIOVASCULAR: No chest pain, chest pressure or chest discomfort, palpitations, edema, orthopnea, syncopal events. RESPIRATORY: No shortness of breath, cough or sputum, wheezing, hemoptysis. GASTROINTESTINAL: + Transient motion sickness with anorexia, nausea without vomiting. No diarrhea, abdominal pain, melena, BRBPR. GENITOURINARY: No dysuria, frequency, urgency or retention. NEUROLOGICAL: + Transient extremity and facial paresthesias both upper and lower extremity, transient imbalance, transient possibly expressive aphasia but poorly descriptive. No headache, dizziness, syncope, paralysis, ataxia, focal weakness, change in bowel or bladder control, seizure. MUSCULOSKELETAL: + muscle, back pain, joint pain or stiffness. HEMATOLOGIC: No anemia, bleeding or bruising. LYMPHATICS: No enlarged nodes. No history of splenectomy. PSYCHIATRIC: No history of depression or anxiety. ENDOCRINOLOGIC: No reports of sweating, cold or heat intolerance. No polyuria or polydipsia. ALLERGIES: No history of asthma, hives, eczema or rhinitis. Vital Signs Vital Signs Vital Signs: 10/26/23 18:02 10/26/23 18:06 10/26/23 20:00 Temperature 96.1 F L Temperature Source Temporal Pulse Rate 88 77 Respiratory Rate 14 16 Respiratory Effort Normal Non-Labored Respiratory Pattern Normal Blood Pressure 161/84 H 159/73 H Blood Pressure Mean 109 101 Pulse Ox 100 99 Oxygen Delivery Method Room Air Room Air 10/26/23 20:33 10/26/23 21:50 Temperature Temperature Source Pulse Rate 74 71 Respiratory Rate 13 14 Respiratory Effort Respiratory Pattern Blood Pressure 136/71 H 126/70 H Blood Pressure Mean 92 88 Pulse Ox 98 84 Oxygen Delivery Method Room Air Weight Weight: 153 lb 3.54 oz Body Mass Index (BMI) 25.4 Physical Exam Narrative Physical Examination: General: Awake, alert, oriented x 3 and cooperative, seated upright in the ED bed, notes she feels as though she is at her baseline. Skin: Normal color, normal turgor, no icterus, no cyanosis. HEENT: AT/NC, EOMI, PERRLA, MMM, no carotid bruits or JVD noted. Lungs: CTA bilaterally, moderate effort, mild decrease BL bases, no rales, ronchi or wheezing. Heart: Regular rate and rhythm; no gallop, rub audible. Abdomen: Soft, NTTP, ND, normal BS, no HSM. Extremities: No cyanosis, clubbing, or edema. Neurological: Patient awake, alert, oriented as noted, cognitive function intact; pupils equally reactive to light and accommodation, cranial nerves II- XII grossly normal, moving all 4 extremities, no focal deficits, finger-nose and sasf-kj-drfv appropriate, sensation intact, equivocal Babinski. Psychiatric: Affect appears normal, no acute evidence of depressive or anxiety feelings. Results Lab / Micro Data 10/26/23 18:02 10/26/23 18:02 Labs: Laboratory Results - last 24 hr 10/26/23 18:02: WBC 7.3, RBC 3.92 L, Hgb 12.2, Hct 38.0, MCV 96.9, MCH 31.1, MCHC 32.1, RDW Std Deviation 45.7 H, RDW Coeff of [place] 12.9, Plt Count 298, MPV 10.2, Immature Gran % (Auto) 0.100, Neut % (Auto) 38.8 L, Lymph % (Auto) 53.4 H, [place] % (Auto) 5.8, Eos % (Auto) 1.2, Baso % (Auto) 0.7, Absolute Neuts (auto) 2.8, Absolute Lymphs (auto) 3.88, Nucleated RBC % 0, Sodium 137, Potassium 3.7, Chloride 106, Carbon Dioxide 25.0, Anion Gap 6, BUN 27 H, Creatinine 0.79, Estim Creat Clear Calc 65.88, Est GFR (MDRD) Af Amer 93, Est GFR (MDRD) Non-Af 77, BUN/Creatinine Ratio 34.3 H, Glucose 132 H, Calcium 8.6, Total Bilirubin 0.30, AST 22, ALT 25, Alkaline Phosphatase 74, Troponin I High Sens 7, Total Protein 7.0, Albumin 3.9, Globulin 3.1, Albumin/Globulin Ratio 1.3 Imaging Radiology Impression Head/Neck CTA 10/26/23 18:48 IMPRESSION: No acute findings in the arteries of the head and neck. Electronically Signed: Gopal Plummer MD ([place]) at 20:01 EST , Chest X-Ray 10/26/23 19:45 IMPRESSION: Nonacute portable x-ray examination of the chest. Electronically Signed: Gopal Plummer MD ([place]) at 20:08 EST , Assessment & Plan Assessment/Plan (1) TIA (transient ischemic attack): PLAN: Plan The patient is a 67 y/o F w/ PMHx: Hx Breast CA unclear type s/p R mastectomy, HLD, Hypothyroidism, Former tobacco use who presents to the [facility] ED on 10/26/23 with history of onset earlier in the day while riding as a passenger in the car motion sickness type symptoms with nausea with then onset of bilateral arm primarily fingers and hands as well as feet, face and perioral paresthesias which lasted approximately 10 minutes after which she arrived at [facility] and was able to get out but felt very off balance when she was walking and while in [facility] for at least 10 to 20 minutes she felt like she was having difficulty forming words and was tachycardic and felt as though her pulse was racing prompting her to become very anxious with eventual ED evaluation to be cautious. #1. Transient paresthesias, disequilibrium and questionable expressive aphasia concerning for possible TIA versus possible hypertensive related: Will admit to PCU, will obtain MRI Brain, ECHO, PT/OT/Speech/Nutrition evaluation per protocol. Will allow permissive HTN, maintain on asa, statin w/ AM FLP, fall precautions. Mag, TSH, FLP, HgbA1c requested. Maintain on fall and aspiration precautions. #2. Elevated BP without HTN diagnosis: Following initial presentation blood pressures appear to have normalized, permissive hypertension currently given presentation as noted, if necessary once appropriate would add oral regimen. Will have as needed agents in the interim per stroke protocol. #3. Hx Breast CA: Patient with unclear type s/p R mastectomy, considered in remission, encourage continued outpatient follow-up as previously arranged. #4. Hypothyroidism: Continue home synthroid regimen, TSH pending. #5. Hyperlipidemia: Continue home statin regimen. AM FLP. #6. Former tobacco use: Encourage continued tobacco cessation. #7. DVT prophylaxis: Lovenox. Charges/Coding Visit Charges Inpatient E&M: 76715 Init Hosp L2
--- OUTSIDE RECORDS SUMMARY | 2023-10-26 22:32 | XMS RPT_ITS | CCD ---
Author Name Unknown Address [id number] [place] [address] Organization [facility] Care Team Providers Care Deputy Administrator Name Role Phone Joanne Monae Unavailable Unavailable [...] Unavailable Ricky DO, Madison A Unavailable Ramon HEARING CARE PROFESSIONAL, Markos Unavailable [phone] Ramon HEARING CARE PROFESSIONAL, Markos Unavailable [phone] Lisa Mcneil Unavailable Ramon HEARING CARE PROFESSIONAL, Markos Unavailable [phone] Christian DO, Jennifer Unavailable [phone] Baltazar TRANSITIONAL LIVING SPECIALIST, Kayela Unavailable Unavailable Loni Kaplan MA Unavailable Unavailable Slarb CENTRAL OFFICE TROUBLE SHOOTER, Lenora Unavailable Unavailable Unavailable Unavailable RAMON, NO MARKOS Referring Unavailable RAMON, CLEMENTE BURROWS Attending Unavailable Allergies Allergy Classification Reported Allergen(s) Allergy Type Date of Onset Reaction(s) Facility Acetaminophen / HYDROcodone (1 source) Acetaminophen / HYDROcodone Drug Allergy [facility] Repository Acetaminophen / oxyCODONE (5 sources) Acetaminophen / oxyCODONE; Translations: [Percocet *ANALGESICS - OPIOID*] Drug Allergy Itching [facility] Work Phone: Medications Completed/Discontinued Medications Medication Drug Class(es) Dates Sig (Normalized) Sig (Original) [id number] 200 actuat albuterol 0.09 mg/actuat metered dose [...] 09-05-2023 End: 09-06-2023 ambulatory NO MARKOS NAVARRO Facility:[id number] Start: 07-23-2023 End: 07-23-2023 Office outpatient visit 25 minutes Markos Navarro HEARING CARE PROFESSIONAL Work Phone: [facility] Start: 07-23-2023 [...] End: 02-08-2021 Patient encounter status Markos Navarro HEARING CARE PROFESSIONAL Work Phone: [facility] Start: 02-08-2021 End: 02-08-2021 Periodic preventive med est patient 65yrs& older Lisa Mcneil HEARING CARE PROFESSIONAL Work Phone: [facility] Start: 01-30-2021 Encounter for other preprocedural examination ESTELLE García CNP [facility] Start: 01-19-2021 End: 01-20-2021 [facility] Start: 01-16-2021 End: 01-17-2021 ambulatory ESTELLE García CNP [facility] Start: 11-21-2020 End: 11-21-2020 Patient encounter procedure ESAU Schrader DEO [facility] Start: 10-28-2020 End: 10-28-2020 Patient encounter procedure ESAU Schrader DEO [facility] Start: 09-05-2020 End: 09-05-2020 ambulatory NO PCP AA NO PCP [facility] Start: 04-27-2020 End: 04-27-2020 Office outpatient visit 15 minutes Lisa [facility] Start: 04-27-2020 Review Lisa Rodriguezsilvia Brandan humberto [facility] Start: 02-16-2020 End: 02-16-2020 Annotation/Addendum Lisa Mcneil [facility] Start: 02-03-2020 End: 02-03-2020 Annotation/Addendum Lisa Mcneil [facility] Start: 01-25-2020 End: 01-25-2020 Phone Encounter Lisa Jennifersilvia [facility] Start: 01-23-2020 End: 01-23-2020 Annotation/Addendum Lisa Jennifersilvia [facility] Start: 01-15-2020 End: 01-15-2020 Office outpatient visit 25 minutes Lisa Meraz [facility] Start: 01-15-2020 End: 01-15-2020 Patient encounter procedure Markos Navarro CNP Work Phone: [facility] Start: 12-17-2018 Patient encounter procedure Lisa Mcneil [facility] Start: 12-17-2018 End: 12-17-2018 Annotation/Addendum Lisa Autumnfrancis [facility] Start: 12-17-2018 End: 12-17-2018 Patient encounter procedure Markos Navarro CNP Work Phone: [facility] Start: 12-17-2018 End: 12-17-2018 Patient encounter status Markos Navarro CNP Work Phone: [facility] Start: 12-17-2018 End: 12-17-2018 Periodic preventive med est patient 40-64yrs Lisa Meraz [facility] Start: 01-28-2018 End: 01-28-2018 Ambulatory Joanne Monae Facility:[facility] Start: 12-03-2017 End: 12-03-2017 Annotation/Addendum iLsa Mcneil [facility] Start: 11-04-2017 End: 11-04-2017 Patient encounter procedure Markos Landapuja SANDOVAL Work Phone: [facility] Start: 11-04-2017 End: 11-04-2017 Periodic preventive med est patient 40-64yrs Lisa Mcneil [facility] Start: 03-18-2017 End: 03-18-2017 Office outpatient visit 15 minutes Lisa Mcneil [facility] Start: 02-05-2017 End: 02-05-2017 Annotation/Addendum Lisa Mcneil [facility] Start: 02-04-2017 End: 02-04-2017 Phone Encounter Lisa Mcneil [facility] Start: 11-07-2016 End: 11-07-2016 Patient encounter procedure Lisa Leyvafrancis [facility] Start: 11-06-2016 End: 11-06-2016 Phone Encounter Lisa Mcneil [facility] Start: 11-02-2016 End: 11-02-2016 Lab Order Lisa Mcneil [facility] Start: 10-31-2016 End: 10-31-2016 Patient [...] End: 08-10-2014 Phone Encounter Lisa Leyvafrancis [facility] Start: 08-09-2014 End: 08-09-2014 Office outpatient visit 25 minutes Lisa Leyvafrancis [facility] Start: 06-15-2014 End: 06-15-2014 Phone Encounter Lisa Leyvafrancis [facility] Start: 08-05-2013 End: 08-06-2013 Medical examinations/reports status Markos Navarro HEARING CARE PROFESSIONAL Work Phone: [facility] Start: 08-05-2013 End: 08-06-2013 Patient encounter procedure Lisa Mcneil [facility] Start: 07-07-2013 End: 07-07-2013 Patient encounter procedure Lisa Mcneil [facility] Patient encounter procedure Dennis Evangelista CENTRAL OFFICE TROUBLE SHOOTER [facility] Work Phone: Patient encounter procedure Dennis Evangelista LPN [facility] Work Phone: Patient encounter procedure Dennis Jean Carlos ENGLISHN [facility] Work Phone: Patient encounter procedure Ashley Ledesma CMA [facility] Work Phone: Patient encounter procedure Lenora Slarb CENTRAL OFFICE TROUBLE SHOOTER [facility] Work Phone: Patient encounter procedure Lenora Slarb CENTRAL OFFICE TROUBLE SHOOTER [facility] Work Phone: Patient encounter procedure Lenora Slarb CENTRAL OFFICE TROUBLE SHOOTER [facility] Work Phone: Patient encounter status Lisa Mcneil HEARING CARE PROFESSIONAL Work Phone: [facility]; [facility] Work Phone: Patient encounter status Dennis Evangelista CENTRAL OFFICE TROUBLE SHOOTER [facility] Work Phone: Patient encounter status Violetachana Delaney [place] [facility] Work Phone: Patient encounter status Lenora Slarb CENTRAL OFFICE TROUBLE SHOOTER [facility] Work Phone: Patient encounter status Lenora Slarb CENTRAL OFFICE TROUBLE SHOOTER [facility] Work Phone: Patient encounter status Lenora Slarb CENTRAL OFFICE TROUBLE SHOOTER [facility] Work Phone: Procedures Date Procedure Procedure Detail Performing Clinician Arthroscopic knee operation Dennis Evangelista Arthroscopic knee operation Dennis Evangelista CENTRAL OFFICE TROUBLE SHOOTER Arthroscopic knee operation Dennis Evangelista LPN Arthroscopic knee operation Violetachana Ledesma CMA Arthroscopic knee operation Lenora Slarb CENTRAL OFFICE TROUBLE SHOOTER Arthroscopic knee operation Lenora Slarb CENTRAL OFFICE TROUBLE SHOOTER Arthroscopic Knee [facility] rgery - Left Lis L Long Arthroscopic Knee [facility]gery - Left Alba Hilario Arthroscopic Knee [facility] rgery - Left Dennis Monzon H/O: hysterectomy Status post hysterectom y Lisa Mcneil [facility] Work Phone: Plan of Treatment Date Care [...] 25 hydroxy includes fractions if performed CALCIFEDIOL (72025) [facility] Work Phone: Start: 07-23-2023 Lipid panel LIPID PANEL (85665) [facility] Work Phone: Start: 07-23-2023 Urinalysis qual/semiquant except immunoassays URINALYSIS (57187) [facility] Work Phone: Start: 07-23-2023 Blood count complete auto&auto difrntl wbc CBC, PLATELETS & AUT DIFF (22992) [facility]; [facility] Work Phone: Start: 07-23-2023 Assay of thyroid stimulating hormone tsh TSH (THYROID STIMULATING HORMONE) (85806) [facility]; [facility] Work Phone: Start: 07-23-2023 Comprehensive metabolic panel METABOLIC PANEL, COMPREHENSIVE (01291) [facility]; [facility] Work [...] id isolate ea urine URINE MORENO CULTURE-IDENTIFICATN (42877) [facility]; [facility] Work Phone: Start: 04-28-2021 Lipid panel LIPID PANEL (03844) [facility] Work Phone: Start: 02-08-2021 Procedure Education Eprescribed prescriptions (G8553) [facility]; [facility] Work Phone: Start: 02-08-2021 Provider Instructions for Treatment [facility] Work Phone: Start: 02-08-2021 Assay of thyroid stimulating hormone tsh TSH (THYROID STIMULATING HORMONE) (35103) [facility]; [facility] Work Phone: Start: 04-27-2020 Procedure Education Eprescribed prescriptions (G8553) [facility] Work Phone: Start: 04-27-2020 Provider Instructions for Treatment Follow up if no improvement or if symptoms worsen [facility] Work Phone: Start: 01-25-2020 Lipid panel Lipid Panel (67512) [facility] Work Phone: Start: 01-25-2020 Hepatic function panel HEPATIC FUNCTION PANEL (34491) [facility] Work Phone: Start: 01-15-2020 [...] difrntl wbc CBC, Platelets & Auto Diff (46718) [facility] Work Phone: Start: 12-17-2018 Comprehensive metabolic panel Metabolic Panel, Comprehensive (15478) [facility] Work Phone: Start: 12-17-2018 Hpv, dna, amp probe HPV, Reflex (96987) [facility] Work Phone: Start: 12-17-2018 Thyrotropin Qn TSH (THYROID STIMULATING HORMONE) (10478) [facility] Work Phone: Start: 12-17-2018 Lipid panel LIPID PANEL (86601) [facility] Work Phone: Start: 12-17-2018 Cytp cerv/vag auto thin layer prep mnl screen Thin prep Pap (71637) (no STD testing) [facility] Work Phone: Start: 11-04-2017 Procedure Education Eprescribed prescriptions (G8553) [facility] Work Phone: Start: 11-04-2017 Provider Instructions for Treatment [facility] Work Phone: Start: 11-04-2017 Cytp cerv/vag auto thin layer prep mnl screen Thin prep Pap (42045) (no STD testing) [facility] Work Phone: Start: 03-18-2017 Procedure Education Eprescribed prescriptions (G8553) [facility] Work Phone: Start: 03-18-2017 Provider Instructions for Treatment Follow up in Oct 2017 get labs in Dec fasting [facility] Work Phone: Start: 03-18-2017 Blood count complete auto&auto difrntl wbc CBC, Platelets & Auto Diff (93481) [facility] Work Phone: Immunizations Immunization Date Immunization Notes Care Provider Yolis hunter 07-23-2023 influenza, injectabl e, quadrivalent, contains preservative Markos Ramon HEARING CARE PROFESSIONAL Work Phone: [facility]; [facility] Work Phone: Payers Date Payer Category Payer Unknown 2016 Unknown [id number] 2015 Unknown [id number] 2012 Unknown [id number] 1960 Medicare [id number] 1960 Medicare [id number] 1954 Unknown [id number] [id number] 1954 Unknown [id number] [id number] [id number] 1954 Unknown [id number] [id number] [id number] 1954 Unknown [id number] 2.16.8 [id number] 1954 Unknown [id number] 2.16.8 [id number] 1954 Unknown [id number] 2.16.8 [id number] 1954 Unknown [id number] [id number] [id number] Medicare Unknown [id number] Social History Date Type Detail Facility Alcohol [...] [facility]; [facility] Work Phone: [phone] 218-710401-12-2022 NoteHNO ID: [id number] Author: Tariq Gary MD Service: ? 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 [...] in 12 months, sooner prn Continue with IN PROCESSING INSTRUCTOR [place]wa for regular health care needs Tariq Gary MD I spent a total of 45 minutes on the date of service which included preparing to see the patient, yrbu-hy-lntd patient care, completing clinical documentation, performing a medically appropriate examination, counseling and educating the patient/family/caregiver and ordering medications, tests, or procedures.[facility]* Name Dates Details Patient Instructions Indication:Other hyperlipidemia Start:08-Feb-2021 Instruction Type:Provider Instructions for Treatment How to Access [employer] Online using Patient Portal and 3rd Libertarian Apps Indication:Non-smoker Start:08-Feb-2021 Instruction Type:Patient Education How [...] Informa tion Online using Patient Portal and [employer] Apps Indication:Non-smoker Start:08-Feb-2021 Instruction Type:Patient Education How [...] Informa tion Online using Patient Portal and [employer] Libertarian Apps Indication:Non-smoker Start:08-Feb-2021 Instruction Type:Patient Education How [...] tion Online using Patient Portal and 3rd Libertarian Apps Indication:Non-smoker Start:08-Feb-2021 Instruction Type:Patient Education How [...] tion Online using Patient Portal and 3rd Libertarian Apps Indication:Non-smoker Start:08-Feb-2021 Instruction Type:Patient Education How [...] Informa tion Online using Patient Portal and [employer] Libertarian Apps Indication:Non-smoker Start:08-Feb-2021 Instruction Type:Patient Education How [...] tion Online using Patient Portal and 3rd Libertarian Apps Indication:Non-smoker Start:06-Apr-2022 Instruction Type:Patient Education Patient Instructions Indication:Other hyperlipidemia Start:08-Feb-2021 Instruction Type:Provider Instructions for Treatment How to Access Health Informa tion Online using Patient Portal and [employer] Apps Indication:Non-smoker Start:08-Feb-2021 Instruction Type:Patient Education How [...] tion Online using Patient Portal and 3rd Libertarian Apps Indication:BMI 23.0-23.9, adult Start:15-May-2022 Instruction Type:Patient Education Patient Instructions Indication:Non-smoker Start:06-Apr-2022 Instruction Type:Provider Instructions for Treatment How to Access Health Informa tion Online using Patient Portal and 3rd Libertarian Apps Indication:Non-smoker Start:06-Apr-2022 Instruction Type:Patient Education Patient Instructions Indication:Other hyperlipidemia Start:08-Feb-2021 Instruction Type:Provider Instructions for Treatment How to Access Health Informa tion Online using Patient Portal and 3rd Libertarian Apps Indication:Non-smoker Start:08-Feb-2021 Instruction Type:Patient Education How [...] tion Online using Patient Portal and 3rd Libertarian Apps Indication:Non-smoker Start:03-Sep-2022 Instruction Type:Patient Education Patient Instructions Indication:Non-smoker Start:31-Aug-2022 Instruction Type:Provider Instructions for Treatment How to Access Health Informa tion Online using Patient Portal and 3rd Libertarian Apps Indication:Non-smoker Start:31-Aug-2022 Instruction Type:Patient Education Patient Instructions Indication:BMI 23.0-23.9, adult Start:15-May-2022 Instruction Type:Provider Instructions for Treatment How to Access Health Informa tion Online using Patient Portal and 3rd Libertarian Apps Indication:BMI 23.0-23.9, adult Start:15-May-2022 Instruction Type:Patient Education Patient Instructions Indication:Non-smoker Start:06-Apr-2022 Instruction Type:Provider Instructions for Treatment How to Access Health Informa tion Online using Patient Portal and 3rd Libertarian Apps Indication:Non-smoker Start:06-Apr-2022 Instruction Type:Patient Education Patient Instructions Indication:Other hyperlipidemia Start:08-Feb-2021 Instruction Type:Provider Instructions for Treatment How to Access Health Informa tion Online using Patient Portal and 3rd Libertarian Apps Indication:Non-smoker Start:08-Feb-2021 Instruction Type:Patient Education How [...] tion Online using Patient Portal and 3rd Libertarian Apps Indication:Non-smoker Start:03-Sep-2022 Instruction Type:Patient Education Patient Instructions Indication:Non-smoker Start:31-Aug-2022 Instruction Type:Provider Instructions for Treatment How to Access Health Informa tion Online using Patient Portal and 3rd Libertarian Apps Indication:Non-smoker Start:31-Aug-2022 Instruction Type:Patient Education Patient Instructions Indication:BMI 23.0-23.9, adult Start:15-May-2022 Instruction Type:Provider Instructions for Treatment How to Access Health Informa tion Online using Patient Portal and 3rd Libertarian Apps Indication:BMI 23.0-23.9, adult Start:15-May-2022 Instruction Type:Patient Education Patient Instructions Indication:Non-smoker Start:06-Apr-2022 Instruction Type:Provider Instructions for Treatment How to Access Health Informa tion Online using Patient Portal and 3rd Libertarian Apps Indication:Non-smoker Start:06-Apr-2022 Instruction Type:Patient Education Patient Instructions Indication:Other hyperlipidemia Start:08-Feb-2021 Instruction Type:Provider Instructions for Treatment How to Access Health Informa tion Online using Patient Portal and 3rd Libertarian Apps Indication:Non-smoker Start:08-Feb-2021 Instruction Type:Patient Education How [...] tion Online using Patient Portal and 3rd Libertarian Apps Indication:Non-smoker Start:03-Sep-2022 Instruction Type:Patient Education Patient Instructions Indication:Non-smoker Start:31-Aug-2022 Instruction Type:Provider Instructions for Treatment How to Access Health Informa tion Online using Patient Portal and 3rd Libertarian Apps Indication:Non-smoker Start:31-Aug-2022 Instruction Type:Patient Education Patient Instructions Indication:BMI 23.0-23.9, adult Start:15-May-2022 Instruction Type:Provider Instructions for Treatment How to Access Health Informa tion Online using Patient Portal and 3rd Libertarian Apps Indication:BMI 23.0-23.9, adult Start:15-May-2022 Instruction Type:Patient Education Patient Instructions Indication:Non-smoker Start:06-Apr-2022 Instruction Type:Provider Instructions for Treatment How to Access Health Informa tion Online using Patient Portal and 3rd Libertarian Apps Indication:Non-smoker Start:06-Apr-2022 Instruction Type:Patient Education Patient Instructions Indication:Other hyperlipidemia Start:08-Feb-2021 Instruction Type:Provider Instructions for Treatment How to Access Health Informa tion Online using Patient Portal and 3rd Libertarian Apps Indication:Non-smoker Start:08-Feb-2021 Instruction Type:Patient Education How [...] tion Online using Patient Portal and 3rd Libertarian Apps Indication:Non-smoker Start:23-Jul-2023 Instruction Type:Patient Education Patient Instructions Indication:Non-smoker Start:23-Jul-2023 Instruction Type:Provider Instructions for Treatment Patient Instructions Indication:Non-smoker Start:03-Sep-2022 Instruction Type:Provider Instructions for Treatment How to Access Health Informa tion Online using Patient Portal and 3rd Libertarian Apps Indication:Non-smoker Start:03-Sep-2022 Instruction Type:Patient Education Patient Instructions Indication:Non-smoker Start:31-Aug-2022 Instruction Type:Provider Instructions for Treatment How to Access Health Informa tion Online using Patient Portal and 3rd Libertarian Apps Indication:Non-smoker Start:31-Aug-2022 Instruction Type:Patient Education Patient Instructions Indication:BMI 23.0-23.9, adult Start:15-May-2022 Instruction Type:Provider Instructions for Treatment How to Access Health Informa tion Online using Patient Portal and 3rd Libertarian Apps Indication:BMI 23.0-23.9, adult Start:15-May-2022 Instruction Type:Patient Education Patient Instructions Indication:Non-smoker Start:06-Apr-2022 Instruction Type:Provider Instructions for Treatment How to Access Health Informa tion Online using Patient Portal and 3rd Libertarian Apps Indication:Non-smoker Start:06-Apr-2022 Instruction Type:Patient Education Patient Instructions Indication:Other hyperlipidemia Start:08-Feb-2021 Instruction Type:Provider Instructions for Treatment How to Access Health Informa tion Online using Patient Portal and 3rd Libertarian Apps Indication:Non-smoker Start:08-Feb-2021 Instruction Type:Patient Education How [...] tion Online using Patient Portal and 3rd Libertarian Apps Indication:Non-smoker Start:23-Jul-2023 Instruction Type:Patient Education Patient Instructions Indication:Non-smoker Start:23-Jul-2023 Instruction Type:Provider Instructions for Treatment Patient Instructions Indication:Non-smoker Start:03-Sep-2022 Instruction Type:Provider Instructions for Treatment How to Access Health Informa tion Online using Patient Portal and 3rd Libertarian Apps Indication:Non-smoker Start:03-Sep-2022 Instruction Type:Patient Education Patient Instructions Indication:Non-smoker Start:31-Aug-2022 Instruction Type:Provider Instructions for Treatment How to Access Health Informa tion Online using Patient Portal and 3rd Libertarian Apps Indication:Non-smoker Start:31-Aug-2022 Instruction Type:Patient Education Patient Instructions Indication:BMI 23.0-23.9, adult Start:15-May-2022 Instruction Type:Provider Instructions for Treatment How to Access Health Informa tion Online using Patient Portal and 3rd [employer]arian Apps Indication:BMI 23.0-23.9, adult Start:15-May-2022 Instruction Type:Patient Education Patient Instructions Indication:Non-smoker Start:06-Apr-2022 Instruction Type:Provider Instructions for Treatment How to Access Health Informa tion Online using Patient Portal and 3rd [employer] Apps Indication:Non-smoker Start:06-Apr-2022 Instruction Type:Patient Education Patient Instructions Indication:Other hyperlipidemia Start:08-Feb-2021 Instruction Type:Provider Instructions for Treatment How to Access Health Informa tion Online using Patient Portal and 3rd Libertarian Apps Indication:Non-smoker Start:08-Feb-2021 Instruction Type:Patient Education How [...] cirrhosis- peripheral neuropathy- etoh gout Status:Active Father Comments:sy3tigeed age 45- M I - smoker Status:Active Mother Comments: - copd smo ker- lung cancer- pulmonary embolism- age 79 Status:Active Son 1 Comments:ankylosing spondyli tis Status:Active Unknown Family Member Name Dates Details 5 siblings- brother - primar y biliary cirrhosis- peripheral neuropathy- etoh gout Status:Active Father Comments:[id number] age 45- M I - smoker Status:Active Mother Comments: - copd smo ker- lung cancer- pulmonary embolism- age 79 Status:Active Son 1 Comments:ankylosing spondyli tis Status:Active Unknown Family Member Name Dates Details 5 siblings- brother - primar y biliary cirrhosis- peripheral neuropathy- etoh gout Status:Active Father Comments:[id number] age 45- M I - smoker Status:Active Mother Comments: - copd smo ker- lung cancer- pulmonary embolism- age 79 Status:Active Son 1 Comments:ankylosing spondyli tis Status:Active Unknown Family Member Name Dates Details 5 siblings- brother - primar y biliary cirrhosis- peripheral neuropathy- etoh gout Status:Active Father Comments:[id number] age 45- M I - smoker Status:Active Mother Comments: - copd smo ker- lung cancer- pulmonary embolism- age 79 Status:Active Son 1 Comments:ankylosing spondyli tis Status:Active Unknown Family Member Name Dates Details 5 siblings- brother - primar y biliary cirrhosis- peripheral neuropathy- etoh gout Status:Active Father Comments:[id number] age 45- M I - smoker Status:Active Mother Comments: - copd smo ker- lung cancer- pulmonary embolism- age 79 Status:Active Son 1 Comments:ankylosing spondyli tis Status:Active Unknown Family Member Name Dates Details 5 siblings- brother - primar y biliary cirrhosis- peripheral neuropathy- etoh gout Status:Active Father Comments:[id number] age 45- M I - smoker Status:Active Mother Comments: - copd smo ker- lung cancer- pulmonary embolism- age 79 Status:Active Son 1 Comments:ankylosing spondyli tis Status:Active Unknown Family Member Name Dates Details 5 siblings- brother - primar y biliary cirrhosis- peripheral neuropathy- etoh gout Status:Active Father Comments:[id number] age 45- M I - smoker Status:Active Mother Comments: - copd smo ker- lung cancer- pulmonary embolism- age 79 Status:Active Son 1 Comments:ankylosing spondyli tis Status:Active Unknown Family Member Name Dates Details 5 siblings- brother - primar y biliary cirrhosis- peripheral neuropathy- etoh gout Status:Active Father Comments:[id number] age 45- M I - smoker Status:Active Mother Comments: - copd smo ker- lung cancer- pulmonary embolism- age 79 Status:Active Son 1 Comments:ankylosing spondyli tis Status:Active Unknown Family Member Name Dates Details 5 siblings- brother - primar y biliary cirrhosis- peripheral neuropathy- etoh gout Status:Active Father Comments:[id number] age 45- M I - smoker Status:Active Mother Comments: - copd smo ker- lung cancer- pulmonary embolism- age 79 Status:Active Son 1 Comments:ankylosing spondyli tis Status:Active Unknown Family Member Name Dates Details 5 siblings- brother - primar y biliary cirrhosis- peripheral neuropathy- etoh gout Status:Active Father Comments:[id number] age 45- M I - smoker Status:Active Mother Comments: - copd smo ker- lung cancer- pulmonary embolism- age 79 Status:Active Son 1 Comments:ankylosing spondyli tis Status:Active Unknown Family Member Name Dates Details 5 siblings- brother - primar y biliary cirrhosis- peripheral neuropathy- etoh gout Status:Active Father Comments:[id number] age 45- M I - smoker Status:Active Mother Comments: - copd smo ker- lung cancer- pulmonary embolism- age 79 Status:Active Son 1 Comments:ankylosing spondyli tis Status:Active Unknown Family Member Name Dates Details 5 siblings- brother - primar y biliary cirrhosis- peripheral neuropathy- etoh gout Status:Active Father Comments:[id number] age 45- M I - smoker Status:Active Mother Comments: - copd smo ker- lung cancer- pulmonary embolism- age 79 Status:Active Son 1 Comments:ankylosing spondyli tis Status:Active Unknown Family Member Name Dates Details 5 siblings- brother - primar y biliary cirrhosis- peripheral neuropathy- etoh gout Status:Active Father Comments:[id number] age 45- M I - smoker Status:Active Mother Comments: - copd smo ker- lung cancer- pulmonary embolism- age 79 Status:Active Son 1 Comments:ankylosing spondyli tis Status:Active Unknown Family Member Name Dates Details 5 siblings- brother - primar y biliary cirrhosis- peripheral neuropathy- etoh gout Status:Active Father Comments:[id number] age 45- M I - smoker Status:Active Mother Comments: - copd smo ker- lung cancer- pulmonary embolism- age 79 Status:Active Son 1 Comments:ankylosing spondyli tis Status:Active Unknown Family Member Name Dates Details 5 siblings- brother - primar y biliary cirrhosis- peripheral neuropathy- etoh gout Status:Active Father Comments:[id number] age 45- M I - smoker Status:Active Mother Comments: - copd smo ker- lung cancer- pulmonary embolism- age 79 Status:Active Son 1 Comments:ankylosing spondyli tis Status:Active Unknown Family Member Name Dates Details 5 siblings- brother - primar y biliary cirrhosis- peripheral neuropathy- etoh gout Status:Active Father Comments:[id number] age 45- M I - smoker Status:Active Mother Comments: - copd smo ker- lung cancer- pulmonary embolism- age 79 Status:Active Son 1 Comments:ankylosing spondyli tis Status:Active Unknown Family Member Name Dates Details 5 siblings- brother - primar y biliary cirrhosis- peripheral neuropathy- etoh gout Status:Active Father Comments:[id number] age 45- M I - smoker Status:Active Mother Comments: - copd smo ker- lung cancer- pulmonary embolism- age 79 Status:Active Son 1 Comments:ankylosing spondyli tis Status:Active Unknown Family Member Name Dates Details 5 siblings- brother - primar y biliary cirrhosis- peripheral neuropathy- etoh gout Status:Active Father Comments:[id number] age 45- M I - smoker Status:Active Mother Comments: - copd smo ker- lung cancer- pulmonary embolism- age 79 Status:Active Son 1 Comments:ankylosing spondyli tis Status:Active Unknown Family Member Name Dates Details 5 siblings- brother - primar y biliary cirrhosis- peripheral neuropathy- etoh gout Status:Active Father Comments:[id number] age 45- M I - smoker Status:Active Mother Comments: - copd smo ker- lung cancer- pulmonary embolism- age 79 Status:Active Son 1 Comments:ankylosing spondyli tis Status:Active Unknown Family Member Name Dates Details 5 siblings- brother - primar y biliary cirrhosis- peripheral neuropathy- etoh gout Status:Active Father Comments:[id number] age 45- M I - smoker Status:Active Mother Comments: - copd smo ker- lung cancer- pulmonary embolism- age 79 Status:Active Son 1 Comments:ankylosing spondyli tis Status:Active Advance Directives No Advanced Directives Records Found Name Dates Details Immunization Registry [place] - Effective on 02/08/2021. Expiration date unspecified Effective:08-Feb-2021 Name Dates Details Immunization Registry [place] - Effective on 02/08/2021. Expiration date unspecified Effective:08-Feb-2021 Name Dates Details Immunization Registry [place] - Effective on 02/08/2021. Expiration date unspecified Effective:08-Feb-2021 Name Dates Details Immunization Registry [place] - Effective on 02/08/2021. Expiration date unspecified Effective:08-Feb-2021 Name Dates Details Immunization Registry [place] - Effective on 02/08/2021. Expiration date unspecified Effective:08-Feb-2021 Name Dates Details Immunization Registry [place] - Effective on 02/08/2021. Expiration date unspecified Effective:08-Feb-2021 Name Dates Details Immunization Registry [place] - Effective on 02/08/2021. Expiration date unspecified Effective:08-Feb-2021 Name Dates Details Immunization Registry [place] - Effective on 02/08/2021. Expiration date unspecified Effective:08-Feb-2021 Name Dates Details Immunization Registry [place] - Effective on 02/08/2021. Expiration date unspecified Effective:08-Feb-2021 Name Dates Details Immunization Registry [place] - Effective on 02/08/2021. Expiration date unspecified Effective:08-Feb-2021 Name Dates Details Immunization Registry [place] - Effective on 02/08/2021. Expiration date unspecified Effective:08-Feb-2021 Name Dates Details Immunization Registry [place] - Effective on 02/08/2021. Expiration date unspecified Effective:08-Feb-2021 Name Dates Details Immunization Registry [place] - Effective on 02/08/2021. Expiration date unspecified [...] Start:07-Oct-2015 Instruction Type:Patient Education How to access [employer] online - Detail Indication:Well woman exam with [...] DATE CREATED AUTHOR AUTHOR'S ORGANIZ ATION 12/17/[address] [facility] DATE CREATED AUTHOR AUTHOR'S ORGANIZ ATION 12/21/2020 [facility] DATE CREATED AUTHOR AUTHOR'S ORGANIZ ATION 02/13/2021 [facility] DATE CREATED AUTHOR AUTHOR'S ORGANIZ ATION 02/24/2021 [facility] DATE CREATED AUTHOR AUTHOR'S ORGANIZ ATION 12/18/2021 [facility] DATE CREATED AUTHOR AUTHOR'S ORGANIZ ATION 09/20/2023 [facility] FOR RECORDS PERTAINING TO PATIENTS WHO [...] BE BASED ON THE PRIMARY CLINICAL RECORDS. [employer] provides no warranty or guarantee of the accuracy or completeness of information in this document.
[2023-10-26 22:49] LABS: Magnesium 2.5 mg/dL (1.6-2.6)
[2023-10-26 22:57] VITALS: BMI 24.2
[2023-10-26 23:15] VITALS: BP 138/57; PULSE 72; RESP 18; TEMP 36.6; O2SAT 98
[2023-10-26 23:24] VITALS: BMI 24.2
[2023-10-26] MEDS: Atorvastatin Calcium 10 MG Tablet 5 MG PO (23:54)
[2023-10-27 01:16] VITALS: BMI 24.2
[2023-10-27 03:15] VITALS: BP 110/52; PULSE 76; RESP 18; TEMP 36.6; O2SAT 95
[2023-10-27 05:20] VITALS: BP 118/60; PULSE 63; RESP 16; TEMP 36.5; O2SAT 97
[2023-10-27 05:20] LABS: Absolute Lymphocyte Count 3.17 X10^3/uL (0.83-4.51); Basophil# 0.04 X10^3/uL; Basophil% 0.7 % (0-1); Eosinophil# 0.07 X10^3/uL; Eosinophils% 1.2 % (0-5); Hemoglobin 11.3 g/dL (12.0-15.0); Lymphocyte # 3.17 X10^3/ul (0.83-4.51); Lymphocyte % 56.1 % (19-41); Mean Corp Hgb Conc 33.2 g/dL (32-36); Mean Corpuscular Hgb 31.2 pg (27.0-32.0); Mean Corpuscular Volume 93.9 fL (81-99); Mean Platelet Vol. 9.9 fl (6.2-12.0); Monocyte# 0.32 X10^3/uL; Monocyte% 5.7 % (0-10); NRBC Flagged by Analyzer 0 % (0-5); Neutrophil # 2.04 X10^3/uL (2.7-7.7); Neutrophil % 36.1 % (47-70); Platelet Count 284 K/mm3 (150-450); RBC Distribution Width CV 12.7 % (11.6-14.6); RBC Distribution Width SD 43.7 fl (35.1-43.9); Red Blood Count 3.62 M/mm3 (4.2-5.4); White Blood Count 5.7 K/mm3 (4.4-11.0)
[2023-10-27] MEDS: Levothyroxine 75 MCG Tablet PO (05:25)
[2023-10-27 05:53] LABS: ALB/GLOB Ratio 1.2 RATIO (0.9-2.4); AST(SGOT) 16 U/L (15-37); Alanine Aminotransfer ALT/SGPT 22 U/L (13-56); Albumin, Serum 3.3 g/dL (3.2-5.0); Alkaline Phosphatase 62 U/L (45-117); Anion Gap 4 (5-15); BUN 19 mg/dL (7-18); BUN/Creat Ratio 27.4 RATIO (10-20); Calcium,Total 8.4 mg/dL (8.5-10.1); Chloride 110 mmol/L (98-107); Cholesterol 181 mg/dL (200); Creatinine, Serum 0.69 mg/dL (0.55-1.02); EST Glomerular Filtration Rate 89 mL/min (>60); Est Glom Filt Rate - Afr Amer 108 mL/min (>60); Estimated Creatinine Clearance 62.92 ml/min; Globulin 2.7 g/dL (2.2-4.2); Glucose 90 mg/dL (74-106); High Density Lipoprotein 113 mg/dL; Potassium 3.7 mmol/L (3.5-5.1); Sodium Level 139 mmol/L (136-145); Thyroid Stim Hormone (TSH) 0.85 uIU/mL (0.358-3.74); Triglycerides 42 mg/dL; Very Low Density Lipoprotein 8 mg/dL (5-40)
[2023-10-27 07:48] VITALS: O2SAT 98
--- NOTE | 2023-10-27 09:00 | MRI_ITS ---
EXAM: MR HEAD WITHOUT INTRAVENOUS CONTRAST CLINICAL INDICATION: TIA TECHNIQUE: Multiplanar and multisequence MR images of the brain were obtained without intravenous contrast. COMPARISON: No relevant prior studies available. FINDINGS: BRAIN AND EXTRA-AXIAL SPACES: Unremarkable. No intra- or extra-axial hemorrhage. No intracranial mass or mass effect. Posterior fossa structures are unremarkable. Ventricles are appropriate for age. No hydrocephalus. Basal cisterns are patent. No diffusion restriction to suspect acute or subacute ischemic infarct. No focal signal abnormalities throughout the brain parenchyma in all pulse sequences. SELLA: Unremarkable. Normal sella turcica, pituitary gland, infundibular stalk, optic chiasm and hypothalamus. AUDITORY SYSTEM: Unremarkable. The internal auditory canals are patent. BONES/JOINTS: Unremarkable. No discrete lytic or blastic abnormalities. SINUSES: Unremarkable as visualized. Clear. MASTOID AIR CELLS: Unremarkable as visualized. Clear. ORBITS: Unremarkable as visualized. Both globes, extraocular muscles, optic nerves and retrobulbar fat appear unremarkable. VASCULATURE: Unremarkable as visualized. Normal flow voids in the major intracranial circulation. MRI/Brain without Contrast IMPRESSION: Normal MRI brain without intravenous contrast. Electronically Signed: Kieran Lomax MD at 13:05 EST ,
[2023-10-27 09:05] VITALS: BP 104/55; PULSE 68; RESP 16; TEMP 36.4; O2SAT 96
[2023-10-27] MEDS: Enoxaparin 40 MG/0.4 ML Syringe SC (09:08)
[2023-10-27] MEDS: Aspirin 81 MG TAB.CHEW PO (09:08)
[2023-10-27 09:14] LABS: Hemoglobin A1c 5.3 % (3.8-5.6)
[2023-10-27 13:05] VITALS: BP 109/51; PULSE 77; RESP 16; TEMP 36.6; O2SAT 97
[2023-10-27 13:16] VITALS: BMI 24.2
--- NOTE | 2023-10-27 13:31 | DCINST_ITS ---
Discharge Instructions Diet Discharge Diet: Low fat / Low cholesterol Activity Discharge Activity: Return to Normal Activity Weight Bearing Status: Weight bearing as tolerated Dressing / Incision Call your doctor if you observe: Fever of 101 or Higher, Shortness of breath, Dizziness and Chest pain Follow Up Care Test Results: Test results from this visit will be discussed in further detail at your follow- up appointment, if applicable. Discharge Plan Admission Admit Date/Time: 10/26/23 22:20 Primary Reason for Your Visit: dizziness Attending Provider: Elizabeth Salomon Primary Care Provider: Paula Liu Consulting Providers: Olya Smith Instructions Patient Instructions: NICOL Dc Discharge Orders/Prescriptions Prescriptions: New aspirin 81 mg Tablet,Chewable 81 mg PO BREAKFAST Qty: 30 2RF atorvastatin 20 mg tablet 20 mg PO QHS Qty: 30 1RF Continued levothyroxine [Euthyrox] 75 mcg tablet 75 mcg PO DAILY Cyto-Q Max 100 mg/mL liquid 200 mg PO QODAY Caltrate-D3 Plus Minerals 600 mg-20 mcg- 40 mg-0.25 mg tablet,chewable 1 tab PO DAILY Altoprev 20 mg tablet extended release 24 hr 20 mg PO QHS alendronate [Fosamax] 70 mg tablet 70 mg PO QWEEK Referrals / Follow Up: Paula Liu, GROUND OPERATIONS SUPERVISOR-C [Primary Care Provider] - Within 1 Week Disposition Disposition (needs filled in before D/C Order can be placed): Home, Self Care
--- NOTE | 2023-10-27 13:35 | PCM.DC.SUM ---
Providers Date of Admission: 10/26/23 Date of Discharge: 10/27/23 Primary Care Physician: Paula Liu NP-C Reason For Visit: ? TIA Diagnosis Discharge Diagnosis (1) TIA (transient ischemic attack): Status: Acute Code(s): G45.9 - Transient cerebral ischemic attack, unspecified Medications at Discharge Home Medications alendronate 70 mg tablet (Fosamax) 70 mg PO QWEEK 10/26/23 calcium 600 mg-D3 20 mcg-magnesium 40 [id number]-[id number] chew tablet (Caltrate-D3 Plus Minerals) 1 tab PO DAILY 10/26/23 coQ10 (liposomal ubiquinol) 100 mg/mL oral liquid (Cyto-Q Max) 200 mg PO QODAY 10/26/23 levothyroxine 75 mcg tablet (Euthyrox) 75 mcg PO DAILY 10/26/23 lovastatin 20 mg tablet,extended release 24 hr (Altoprev) 20 mg PO QHS 10/26/23 aspirin 81 mg chewable tablet 81 mg PO BREAKFAST #30 tabs 10/27/23 atorvastatin 20 mg tablet 20 mg PO QHS #30 tabs 10/27/23 Hospital Course Procedures None Summary of Care Provided Minutes Spent on Discharge: 45 Hospital Course: Patient is a 67-year-old female with a past medical history as outlined was admitted through the ED on 10/26/2023 with a complaint of nausea and tingling in her hands and feet as well as aphasia and perioral paresthesia. She also felt off balance and while she was in catholic she felt like she was having difficulty forming words. She also felt she was having tachycardia. His symptoms had resolved by the time she came to the ED and NIH stroke scale was 0. CT of the brain and CT of the head and neck were negative. She was therefore admitted and managed for TIA. She had MRI of the brain which was negative for any evidence of stroke. Lipid panel done showed no evidence of hyperlipidemia. She remained stable and was discharged home on p.o. aspirin 81 mg daily as well as p.o. atorvastatin 20 mg nightly. Since it was a Saturday she could not have the 2D echo done. She also wanted to be discharged home. Patient therefore to have 2D echo done on outpatient basis after being ordered by her PCP. A1C was 5.3. Patient seen and examined prior to discharge. She felt well and had no complaints. She had an uneventful night. Review of systems otherwise negative. Labs and vitals reviewed. Home medication reviewed and reconciled. Physical Exam Const alert, oriented x3 and no apparent distress General Appearance: cooperative, comfortable, well kempt and well developed Orientation / Consciousness: awake HEENT normocephalic, head/scalp atraumatic, hearing grossly normal bilaterally and moist oral mucous membranes Eyes PERRL, EOMs intact bilaterally and conjunctivae normal Neck no lymphadenopathy and supple Cardio regular rate, regular rhythm, S1 normal heart sound, S2 normal heart sound and no murmurs Extremity normal to inspection, full ROM and no clubbing, cyanosis or edema Skin no rashes or lesions noted Neuro oriented x3, CN's II-XII intact bilaterally, moves all extremities, no focal motor deficits and no sensory deficits noted Sensorium / Orientation: awake Motor Exam: strength 5/5 throughout Psych affect normal Weight / BMI Weight Weight: 145 lb 8.081 oz Body Mass Index (BMI) 24.2 ABG / Lab / Microbiology Data 10/27/23 04:05 10/27/23 04:05 Laboratory: Laboratory Results - last 24 hr 10/26/23 18:02: WBC 7.3, RBC 3.92 L, Hgb 12.2, Hct 38.0, MCV 96.9, MCH 31.1, MCHC 32.1, RDW Std Deviation 45.7 H, RDW Coeff of Kyrie 12.9, Plt Count 298, MPV 10.2, Immature Gran % (Auto) 0.100, Neut % (Auto) 38.8 L, Lymph % (Auto) 53.4 H, [place] % (Auto) 5.8, Eos % (Auto) 1.2, Baso % (Auto) 0.7, Absolute Neuts (auto) 2.8, Absolute Lymphs (auto) 3.88, Nucleated RBC % 0, Sodium 137, Potassium 3.7, Chloride 106, Carbon Dioxide 25.0, Anion Gap 6, BUN 27 H, Creatinine 0.79, Estim Creat Clear Calc 65.88, Est GFR (MDRD) Af Amer 93, Est GFR (MDRD) Non-Af 77, BUN/Creatinine Ratio 34.3 H, Glucose 132 H, Calcium 8.6, Magnesium 2.5, Total Bilirubin 0.30, AST 22, ALT 25, Alkaline Phosphatase 74, Troponin I High Sens 7, Total Protein 7.0, Albumin 3.9, Globulin 3.1, Albumin/Globulin Ratio 1.3 10/27/23 04:05: WBC 5.7, RBC 3.62 L, Hgb 11.3 L, Hct 34.0 L, MCV 93.9, MCH 31.2, MCHC 33.2, RDW Std Deviation 43.7, RDW Coeff of Kyrie 12.7, Plt Count 284, MPV 9.9, Immature Gran % (Auto) 0.200, Neut % (Auto) 36.1 L, Lymph % (Auto) 56.1 H, [place] % (Auto) 5.7, Eos % (Auto) 1.2, Baso % (Auto) 0.7, Absolute Neuts (auto) 2.0, Absolute Lymphs (auto) 3.17, Nucleated RBC % 0, Sodium 139, Potassium 3.7, Chloride 110 H, Carbon Dioxide 25.0, Anion Gap 4 L, BUN 19 H, Creatinine 0.69, Estim Creat Clear Calc 62.92, Est GFR (MDRD) Af Amer 108, Est GFR (MDRD) Non-Af 89, BUN/Creatinine Ratio 27.4 H, Glucose 90, Hemoglobin A1c 5.3, Calcium 8.4 L, Total Bilirubin 0.40, AST 16, ALT 22, Alkaline Phosphatase 62, Total Protein 6.0 L, Albumin 3.3, Globulin 2.7, Albumin/Globulin Ratio 1.2, Triglycerides 42, Cholesterol 181, LDL Cholesterol 60, VLDL Cholesterol 8, HDL Cholesterol 113, TSH 0.85 Radiography Diagnostic Testing: Radiology Impression Head/Neck CTA 10/26/23 18:48 IMPRESSION: No acute findings in the arteries of the head and neck. Electronically Signed: Gopal Plummer MD ([place]) at 20:01 EST , Chest X-Ray 10/26/23 19:45 IMPRESSION: Nonacute portable x-ray examination of the chest. Electronically Signed: Gopal Plummer MD ([place]) at 20:08 EST , Brain MRI 10/27/23 09:00 IMPRESSION: Normal MRI brain without intravenous contrast. Electronically Signed: Kieran Lomax MD at 13:05 EST , D/C Instructions Discharge Diet: Low fat / Low cholesterol Discharge Activity: Return to Normal Activity Weight Bearing Status: Weight bearing as tolerated Call your doctor if you observe: Fever of 101 or Higher, Shortness of breath, Dizziness and Chest pain Meaningful Use Info Meaningful Use Diagnoses (Choose all that apply): None applicable Discharge Plan Admission Admit Date/Time: 10/26/23 22:20 Primary Reason for Your Visit: dizziness Attending Provider: Elizabeth Salomon Primary Care Provider: Paula Liu Consulting Providers: Olya Smith Instructions Patient Instructions: TIA Dc Discharge Orders/Prescriptions Prescriptions: New aspirin 81 mg Tablet,Chewable 81 mg PO BREAKFAST Qty: 30 2RF atorvastatin 20 mg tablet 20 mg PO QHS Qty: 30 1RF Continued levothyroxine [Euthyrox] 75 mcg tablet 75 mcg PO DAILY Cyto-Q Max 100 mg/mL liquid 200 mg PO QODAY Caltrate-D3 Plus Minerals 600 mg-20 mcg- 40 mg-0.25 mg tablet,chewable 1 tab PO DAILY Altoprev 20 mg tablet extended release 24 hr 20 mg PO QHS alendronate [Fosamax] 70 mg tablet 70 mg PO QWEEK Referrals / Follow Up: Paula Liu, MIXING MACHINE TENDER CORK ROD-C [Primary Care Provider] - Within 1 Week Disposition Disposition (needs filled in before D/C Order can be placed): Home, Self Care Charges/Coding Visit Charges Inpatient E&M: 11674 Disch Hosp >30min
== END 2023-10-27 13:34 | disposition home or self-care (01) ==
LOC: ED 21:45 → PCU 22:08
PROVIDERS: Admitting Provider Family Medicine; Emergency Provider Emergency Medicine; PCP Nurse Practitioner Family; Referring Provider Emergency Medicine; Visit Provider Student in an Organized Health Care Education/Training Program
DX: G45.9 Transient cerebral ischemic attack, unspecified (principal); Z87.891 Personal history of nicotine dependence; R11.0 Nausea; R47.01 Aphasia; E78.00 Pure hypercholesterolemia, unspecified; R03.0 Elevated blood-pressure reading, without diagnosis of hypertension; E03.9 Hypothyroidism, unspecified; Z79.899 Other long term (current) drug therapy; Z79.890 Hormone replacement therapy; R20.0 Anesthesia of skin; R20.2 Paresthesia of skin
CPT/HCPCS: 70496; 70498; 70551; 71045; 80053; 80061; 83036; 83735; 84443; 84484; 85025; 92610; 93005; 94762; 96372; 97161; 97165; 97802; 99221; 99285; Q9967; A4216; G0378

== ENCOUNTER → 2023-12-04 | Outpatient (CLI) | payer MEDICARE, BC, SELFPAY ==
--- NOTE | 2023-12-04 07:46 | ECHOD_ITS ---
Reason For Study: TIA Procedure This was a 2D Doppler, Color Flow transthoracic echocardiogram. Exam performed in department. Left Ventricle Normal size and thickness. The left ventricular ejection fraction is 65 %. Normal diastology for age. Right Ventricle Normal right ventricle. Atria The left and right atria are normal. Bubble contrast study is negative for PFO/ASD. Mitral Valve Mild (1+) mitral valve insufficiency. Tricuspid Valve Trivial tricuspid valve insufficiency. Normal pulmonary artery pressure. Aortic Valve Trisinus/trileaflet aortic valve. Pulmonic Valve Trivial pulmonic valve insufficiency. Great Vessels Normal sized aortic root. Pericardium/Pleural No pericardial effusion. Medication Performed a rapid injection of agitated mix of 9 cc saline and 1cc air to assess for atrial septal defect. MMode/2D Measurements & Calculations LVIDd: 4.5 cm IVSd: 0.75 cm LVOT diam: 1.9 cm LVIDs: 3.0 cm LVPWd: 0.68 cm RVDd: 3.1 cm FS: 32.7 % LVOT area: 2.8 cm2 Ao root diam: 3.1 cm LAV(MOD-bp): 39.6 ml LVAd ap4: 23.7 cm2 LAV(MOD-bp) Indexed: 22.9 ml/m2 LVLd ap4: 7.2 cm LAV(MOD-sp2): 39.3 ml EDV(MOD-sp4): 63.9 ml LAV(MOD-sp4): 39.5 ml EDV(sp4-el): 65.9 ml LVAs ap4: 13.6 cm2 LVLs ap4: 6.0 cm ESV(MOD-sp4): 26.0 ml ESV(sp4-el): 26.1 ml EF(MOD-sp4): 59.3 % EF(sp4-el): 60.3 % LVAd ap2: 23.6 cm2 SV(MOD-sp4): 37.9 ml SV(MOD-sp2): 45.1 ml LVLd ap2: 6.7 cm EDV(MOD-sp2): 68.0 ml EDV(sp2-el): 70.2 ml LVAs ap2: 12.3 cm2 LVLs ap2: 5.7 cm ESV(MOD-sp2): 22.9 ml ESV(sp2-el): 22.5 ml EF(MOD-sp2): 66.3 % SV(sp4-el): 39.7 ml LA dimension(2D): 3.3 cm LA A4 area: 15.7 cm2 RA A4 area: 10.6 cm2 TAPSE: 1.7 cm Time Measurements MV dec time: 0.16 sec Doppler Measurements & Calculations MV E max reji: 55.8 cm/sec Lat Peak E' Reji: 10.2 cm/sec Med Peak E' Reji: 8.6 cm/sec MV A max reji: 69.4 cm/sec E/E' lat: 5.5 E/E' med: 6.5 MV E/A: 0.80 Ao V2 max: 113.9 cm/sec LV V1 max: 75.2 cm/sec MV dec slope: 351.7 cm/sec2 Ao max P.2 mmHg LV V1 max P.3 mmHg Ao V2 mean: 84.0 cm/sec LV V1 mean P.3 mmHg Ao mean P.1 mmHg LV V1 mean: 54.1 cm/sec Ao V2 VTI: 30.9 cm LV V1 VTI: 17.9 cm AV (velocity ratio): 0.58 KENDRA(I,D): 1.6 cm2 KENDRA(V,D): 1.9 cm2 SV(LVOT): 50.8 ml PA V2 max: 75.3 cm/sec TR max reji: 192.8 cm/sec PA max PG (full): 0.70 mmHg TR max P.9 mmHg ECHO/Echo Complete Interpretation Summary The left ventricular ejection fraction is 65 %. Bubble contrast study is negative for PFO/ASD. Mild (1+) mitral valve insufficiency. Ordering Physician: Paula Liu Referring Physician: Paula Liu Performed By: Bree Garner RDCS
--- OUTSIDE RECORDS SUMMARY | 2023-12-04 08:11 | XMS RPT_ITS | CCD ---
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 Name Role Phone Joanne Monae Unavailable Unavailable [...] Unavailable Ricky DO, Madison A Unavailable Ramon SHOW GIRL, Markos Unavailable [phone] Ramon SHOW GIRL, Markos Unavailable [phone] Lisa Mcneil Unavailable Ramon SHOW GIRL, Markos Unavailable [phone] Christian DO, Jennifer Unavailable [phone] Baltazar CONSTRUCTION REPRESENTATIVE, Kayela Unavailable Unavailable Loni Kaplan MA Unavailable Unavailable Slarb PET HANDLER, Lenora Unavailable Unavailable Unavailable Unavailable RAMON, NO MARKOS Referring Unavailable RAMON, CLEMENTE BURROWS Attending Unavailable Allergies Allergy Classification Reported Allergen(s) Allergy Type Date of Onset Reaction(s) Facility Acetaminophen / HYDROcodone (1 source) Acetaminophen / HYDROcodone Drug Allergy [facility] Repository Acetaminophen / oxyCODONE (5 sources) Acetaminophen / oxyCODONE; Translations: [Percocet *ANALGESICS - OPIOID*] Drug Allergy Itching [facility]; [facility] Work Phone: Medications Completed/Discontinued Medications Medication Drug Class(es) Dates Sig (Normalized) Sig (Original) [id number] 200 actuat albuterol 0.09 mg/actuat metered dose [...] 09-05-2023 End: 09-06-2023 ambulatory NO MARKOS NAVARRO Facility:[id number] Start: 07-23-2023 End: 07-23-2023 Office outpatient visit 25 minutes Markos Navarro SHOW GIRL Work Phone: [facility] Start: 07-23-2023 [...] End: 02-08-2021 Patient encounter status Markos Navarro SHOW GIRL Work Phone: [facility] Start: 02-08-2021 End: 02-08-2021 Periodic preventive med est patient 65yrs& older Lisa Mcneil SHOW GIRL Work Phone: [facility] Start: 01-30-2021 Encounter for other preprocedural examination ESTELLE García CNP [facility] Start: 01-19-2021 End: [facility]: 01-16-2021 End: 01-17-2021 ambulatory ESTELLE García CNP [facility] Start: 11-21-2020 End: 11-21-2020 Patient encounter procedure ESAU Schrader DEO [facility] Start: 10-28-2020 End: 10-28-2020 Patient encounter procedure ESAU Schrader DEO [facility] Start: 09-05-2020 End: 09-05-2020 ambulatory NO PCP AA NO PCP [facility] Start: 04-27-2020 End: 04-27-2020 Office outpatient visit 15 minutes Lisa [facility] Start: 04-27-2020 Review Lisa Rodriguezsilvia Brandan [facility] Start: 02-16-2020 End: 02-16-2020 Annotation/Addendum Lisa Mcneil [facility] Start: 02-03-2020 End: 02-03-2020 Annotation/Addendum Lisa Mcneil [facility] Start: 01-25-2020 End: 01-25-2020 Phone Encounter Lisa Jennifersilvia [facility] Start: 01-23-2020 End: 01-23-2020 Annotation/Addendum Lisa Jennifersilvia [facility] Start: 01-15-2020 End: 01-15-2020 Office outpatient visit 25 minutes Lisa Mer[facility] Start: 01-15-2020 End: 01-15-2020 Patient encounter procedure Markos Navarro CNP Work Phone: [facility] Start: 12-17-2018 Patient encounter procedure Lisa Mcneil [facility] Start: 12-17-2018 End: 12-17-2018 Annotation/Addendum Lisa Autumnfrancis [facility] Start: 12-17-2018 End: 12-17-2018 Patient encounter procedure Markos Navarro CNP Work Phone: [facility] Start: 12-17-2018 End: 12-17-2018 Patient encounter status Markos Navarro CNP Work Phone: [facility] Start: 12-17-2018 End: 12-17-2018 Periodic preventive med est patient 40-64yrs Lisa Meraz [facility] Start: 01-28-2018 End: 01-28-2018 Ambulatory Joanne Monae Facility:[facility] Start: 12-03-2017 End: 12-03-2017 Annotation/Addendum Lisa Mcneil [facility] Start: 11-04-2017 End: 11-04-2017 Patient encounter procedure Markos Landapuja SANDOVAL Work Phone: [facility] Start: 11-04-2017 End: 11-04-2017 Periodic preventive med est patient 40-64yrs Lisa Mcneil [facility] Start: 03-18-2017 End: 03-18-2017 Office outpatient visit 15 minutes Lisa Mcneil [facility] Start: 02-05-2017 End: 02-05-2017 Annotation/Addendum Lisa Mcneil [facility] Start: 02-04-2017 End: 02-04-2017 Phone Encounter Lisa Mcneil [facility] Start: 11-07-2016 End: 11-07-2016 Patient encounter procedure Lisa Leyvafrancis [facility] Start: 11-06-2016 End: 11-06-2016 Phone Encounter Lisa Mcneil [facility] Start: 11-02-2016 End: 11-02-2016 Lab Order Lisa Mcneil [facility] Start: 10-31-2016 End: 10-31-2016 Patient [...] End: 08-10-2014 Phone Encounter Lisa Leyvafrancis [facility] Start: 08-09-2014 End: 08-09-2014 Office outpatient visit 25 minutes Lisa Leyvafrancis [facility] Start: 06-15-2014 End: 06-15-2014 Phone Encounter Lisa Leyvafrancis [facility] Start: 08-05-2013 End: 08-06-2013 Medical examinations/reports status Markos Navarro SHOW GIRL Work Phone: [facility] Start: 08-05-2013 End: 08-06-2013 Patient encounter procedure Lisa Mcneil [facility] Start: 07-07-2013 End: 07-07-2013 Patient encounter procedure Lisa Mcneil [facility] Patient encounter procedure Dennis Evangelista PET HANDLER [facility] Work Phone: Patient encounter procedure Dennis Evangelista LPN [facility] Work Phone: Patient encounter procedure Dennis Jean Carlos ENGLISHN [facility] Work Phone: Patient encounter procedure Ashley Ledesma CMA [facility] Work Phone: Patient encounter procedure Lenora Slarb PET HANDLER [facility] Work Phone: Patient encounter procedure Lenora Slarb PET HANDLER [facility]; [facility] Work Phone: Patient encounter procedure Lenora Slarb PET HANDLER [facility] Work Phone: Patient encounter status Lisa Mcneil SHOW GIRL Work Phone: [facility]; [facility] Work Phone: Patient encounter status Dennis Evangelista PET HANDLER [facility]; [facility] Work Phone: Patient encounter status Violetachana Delaney LA [facility]; [facility] Work Phone: Patient encounter status Lenora Slarb PET HANDLER [facility]; [facility] Work Phone: Patient encounter status Lenora Slarb PET HANDLER [facility]; [facility] Work Phone: Patient encounter status Lenora Slarb PET HANDLER [facility]; [facility] Work Phone: Procedures Date Procedure Procedure Detail Performing Clinician Arthroscopic knee operation Dennis Evangelista Arthroscopic knee operation Dennis Evangelista PET HANDLER Arthroscopic knee operation Dennis Evangelista LPN Arthroscopic knee operation Violetachana Ledesma CMA Arthroscopic knee operation Lenora Slarb PET HANDLER Arthroscopic knee operation Lenora Slarb PET HANDLER Arthroscopic Knee [facility] - Left Lis L Long Arthroscopic Knee [facility] - Left Alba Hilario Arthroscopic Knee [facility] - Left Dennis Monzon H/O: hysterectomy Status post hysterectom y Lisa Mcneil [facility] Work Phone: Plan of Treatment Date [...] 25 hydroxy includes fractions if performed CALCIFEDIOL (35809) [facility] Work Phone: Start: 07-23-2023 Lipid panel LIPID PANEL (06333) [facility] Work Phone: Start: 07-23-2023 Urinalysis qual/semiquant except immunoassays URINALYSIS (61197) [facility]; [facility] Work Phone: Start: 07-23-2023 Blood count complete auto&auto difrntl wbc CBC, PLATELETS & AUT DIFF (74653) [facility]; [facility] Work Phone: Start: 07-23-2023 Assay of thyroid stimulating hormone tsh TSH (THYROID STIMULATING HORMONE) (21660) [facility]; [facility] Work Phone: Start: 07-23-2023 Comprehensive metabolic panel METABOLIC PANEL, COMPREHENSIVE (98171) [facility]; [facility] Work [...] id isolate ea urine URINE MORENO CULTURE-IDENTIFICATN (68512) [facility]; [facility] Work Phone: Start: 04-28-2021 Lipid panel LIPID PANEL (06729) [facility] Work Phone: Start: 02-08-2021 Procedure Education Eprescribed prescriptions (G8553) [facility]; [facility] Work Phone: Start: 02-08-2021 Provider Instructions for Treatment [facility] Work Phone: Start: 02-08-2021 Assay of thyroid stimulating hormone tsh TSH (THYROID STIMULATING HORMONE) (28827) [facility]; [facility] Work Phone: Start: 04-27-2020 Procedure Education Eprescribed prescriptions (G8553) [facility] Work Phone: Start: 04-27-2020 Provider Instructions for Treatment Follow up if no improvement or if symptoms worsen [facility] Work Phone: Start: 01-25-2020 Lipid panel Lipid Panel (74341) [facility] Work Phone: Start: 01-25-2020 Hepatic function panel HEPATIC FUNCTION PANEL (46556) [facility] Work Phone: Start: 01-15-2020 [...] difrntl wbc CBC, Platelets & Auto Diff (67569) [facility] Work Phone: Start: 12-17-2018 Comprehensive metabolic panel Metabolic Panel, Comprehensive (92920) [facility] Work Phone: Start: 12-17-2018 Hpv, dna, amp probe HPV, Reflex (42969) [facility] Work Phone: Start: 12-17-2018 Thyrotropin Qn TSH (THYROID STIMULATING HORMONE) (02583) [facility] Work Phone: Start: 12-17-2018 Lipid panel LIPID PANEL (01268) [facility] Work Phone: Start: 12-17-2018 Cytp cerv/vag auto thin layer prep mnl screen Thin prep Pap (30939) (no STD testing) [facility] Work Phone: Start: 11-04-2017 Procedure Education Eprescribed prescriptions (G8553) [facility] Work Phone: Start: 11-04-2017 Provider Instructions for Treatment [facility] Work Phone: Start: 11-04-2017 Cytp cerv/vag auto thin layer prep mnl screen Thin prep Pap (68842) (no STD testing) [facility] Work Phone: Start: 03-18-2017 Procedure Education Eprescribed prescriptions (G8553) [facility] Work Phone: Start: 03-18-2017 Provider Instructions for Treatment Follow up in Oct 2017 get labs in Dec fasting [facility] Work Phone: Start: 03-18-2017 Blood count complete auto&auto difrntl wbc CBC, Platelets & Auto Diff (90219) [facility] Work Phone: Immunizations Immunization Date Immunization Notes Care Provider Yolis hunter 07-23-2023 influenza, injectabl e, quadrivalent, contains preservative Markos Ramon SHOW GIRL Work Phone: [facility]; [facility] Work Phone: Payers Date Payer Category Payer Unknown 2016 Unknown [id number] 2015 Unknown [id number] 2012 Unknown [id number] 1960 Medicare [id number] 1960 Medicare [id number] 1954 Unknown [id number] 1954 Unknown [id number] [id number] [id number] 1954 Unknown [id number] [id number] [id number] 1954 Unknown [id number] [id number] [id number] 1954 Unknown [id number] [id number] [id number] 1954 Unknown [id number] [id number] [id number] 1954 Unknown [id number] 2.16.8 [id number] Medicare Unknown [id number] Social History Date Type Detail Facility Alcohol [...] [facility]; [facility] Work Phone: [phone]) 970-762501-12-2022 NoteHNO ID: [id number] Author: Tariq Gary MD Service: ? 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 [...] in 12 months, sooner prn Continue with INTERNET SALES CONSULTANT [place] for regular health care needs Tariq Gary MD I spent a total of 45 minutes on the date of service which included preparing to see the patient, [id number] patient care, completing clinical documentation, performing a medically appropriate examination, counseling and educating the patient/family/caregiver and ordering medications, tests, or procedures.[facility]* Name Dates Details Patient Instructions Indication:Other hyperlipidemia Start:08-Feb-2021 Instruction Type:Provider Instructions for Treatment How to Access [employer] Online using Patient Portal and [employer] Apps Indication:Non-smoker Start:08-Feb-2021 Instruction Type:Patient Education How [...] Informa tion Online using Patient Portal and [employer] Apps Indication:Non-smoker Start:08-Feb-2021 Instruction Type:Patient Education How [...] Informa tion Online using Patient Portal and [employer] Apps Indication:Non-smoker Start:08-Feb-2021 Instruction Type:Patient Education How [...] tion Online using Patient Portal and [employer] Apps Indication:Non-smoker Start:08-Feb-2021 Instruction Type:Patient Education How [...] tion Online using Patient Portal and [employer] Apps Indication:Non-smoker Start:08-Feb-2021 Instruction Type:Patient Education How [...] Informa tion Online using Patient Portal and [employer] Apps Indication:Non-smoker Start:08-Feb-2021 Instruction Type:Patient Education How [...] tion Online using Patient Portal and [employer] Apps Indication:Non-smoker Start:06-Apr-2022 Instruction Type:Patient Education Patient Instructions Indication:Other hyperlipidemia Start:08-Feb-2021 Instruction Type:Provider Instructions for Treatment How to Access Health Informa tion Online using Patient Portal and [employer] Apps Indication:Non-smoker Start:08-Feb-2021 Instruction Type:Patient Education How [...] tion Online using Patient Portal and [employer] Apps Indication:BMI 23.0-23.9, adult Start:15-May-2022 Instruction Type:Patient Education Patient Instructions Indication:Non-smoker Start:06-Apr-2022 Instruction Type:Provider Instructions for Treatment How to Access Health Informa tion Online using Patient Portal and [employer] Apps Indication:Non-smoker Start:06-Apr-2022 Instruction Type:Patient Education Patient Instructions Indication:Other hyperlipidemia Start:08-Feb-2021 Instruction Type:Provider Instructions for Treatment How to Access Health Informa tion Online using Patient Portal and [employer] Apps Indication:Non-smoker Start:08-Feb-2021 Instruction Type:Patient Education How [...] tion Online using Patient Portal and [employer] Apps Indication:Non-smoker Start:03-Sep-2022 Instruction Type:Patient Education Patient Instructions Indication:Non-smoker Start:31-Aug-2022 Instruction Type:Provider Instructions for Treatment How to Access Health Informa tion Online using Patient Portal and [employer] Apps Indication:Non-smoker Start:31-Aug-2022 Instruction Type:Patient Education Patient Instructions Indication:BMI 23.0-23.9, adult Start:15-May-2022 Instruction Type:Provider Instructions for Treatment How to Access Health Informa tion Online using Patient Portal and [employer] Apps Indication:BMI 23.0-23.9, adult Start:15-May-2022 Instruction Type:Patient Education Patient Instructions Indication:Non-smoker Start:06-Apr-2022 Instruction Type:Provider Instructions for Treatment How to Access Health Informa tion Online using Patient Portal and [employer] Apps Indication:Non-smoker Start:06-Apr-2022 Instruction Type:Patient Education Patient Instructions Indication:Other hyperlipidemia Start:08-Feb-2021 Instruction Type:Provider Instructions for Treatment How to Access Health Informa tion Online using Patient Portal and [employer] Apps Indication:Non-smoker Start:08-Feb-2021 Instruction Type:Patient Education How [...] tion Online using Patient Portal and [employer] Apps Indication:Non-smoker Start:03-Sep-2022 Instruction Type:Patient Education Patient Instructions Indication:Non-smoker Start:31-Aug-2022 Instruction Type:Provider Instructions for Treatment How to Access Health Informa tion Online using Patient Portal and [employer] Apps Indication:Non-smoker Start:31-Aug-2022 Instruction Type:Patient Education Patient Instructions Indication:BMI 23.0-23.9, adult Start:15-May-2022 Instruction Type:Provider Instructions for Treatment How to Access Health Informa tion Online using Patient Portal and [employer] Apps Indication:BMI 23.0-23.9, adult Start:15-May-2022 Instruction Type:Patient Education Patient Instructions Indication:Non-smoker Start:06-Apr-2022 Instruction Type:Provider Instructions for Treatment How to Access Health Informa tion Online using Patient Portal and [employer] Apps Indication:Non-smoker Start:06-Apr-2022 Instruction Type:Patient Education Patient Instructions Indication:Other hyperlipidemia Start:08-Feb-2021 Instruction Type:Provider Instructions for Treatment How to Access Health Informa tion Online using Patient Portal and [employer] Apps Indication:Non-smoker Start:08-Feb-2021 Instruction Type:Patient Education How [...] tion Online using Patient Portal and [employer] Apps Indication:Non-smoker Start:03-Sep-2022 Instruction Type:Patient Education Patient Instructions Indication:Non-smoker Start:31-Aug-2022 Instruction Type:Provider Instructions for Treatment How to Access Health Informa tion Online using Patient Portal and [employer] Apps Indication:Non-smoker Start:31-Aug-2022 Instruction Type:Patient Education Patient Instructions Indication:BMI 23.0-23.9, adult Start:15-May-2022 Instruction Type:Provider Instructions for Treatment How to Access Health Informa tion Online using Patient Portal and [employer] Apps Indication:BMI 23.0-23.9, adult Start:15-May-2022 Instruction Type:Patient Education Patient Instructions Indication:Non-smoker Start:06-Apr-2022 Instruction Type:Provider Instructions for Treatment How to Access Health Informa tion Online using Patient Portal and [employer] Apps Indication:Non-smoker Start:06-Apr-2022 Instruction Type:Patient Education Patient Instructions Indication:Other hyperlipidemia Start:08-Feb-2021 Instruction Type:Provider Instructions for Treatment How to Access Health Informa tion Online using Patient Portal and [employer] Apps Indication:Non-smoker Start:08-Feb-2021 Instruction Type:Patient Education How [...] tion Online using Patient Portal and [employer] Apps Indication:Non-smoker Start:23-Jul-2023 Instruction Type:Patient Education Patient Instructions Indication:Non-smoker Start:23-Jul-2023 Instruction Type:Provider Instructions for Treatment Patient Instructions Indication:Non-smoker Start:03-Sep-2022 Instruction Type:Provider Instructions for Treatment How to Access Health Informa tion Online using Patient Portal and [employer] Apps Indication:Non-smoker Start:03-Sep-2022 Instruction Type:Patient Education Patient Instructions Indication:Non-smoker Start:31-Aug-2022 Instruction Type:Provider Instructions for Treatment How to Access Health Informa tion Online using Patient Portal and [employer] Apps Indication:Non-smoker Start:31-Aug-2022 Instruction Type:Patient Education Patient Instructions Indication:BMI 23.0-23.9, adult Start:15-May-2022 Instruction Type:Provider Instructions for Treatment How to Access Health Informa tion Online using Patient Portal and [employer] Apps Indication:BMI 23.0-23.9, adult Start:15-May-2022 Instruction Type:Patient Education Patient Instructions Indication:Non-smoker Start:06-Apr-2022 Instruction Type:Provider Instructions for Treatment How to Access Health Informa tion Online using Patient Portal and [employer] Apps Indication:Non-smoker Start:06-Apr-2022 Instruction Type:Patient Education Patient Instructions Indication:Other hyperlipidemia Start:08-Feb-2021 Instruction Type:Provider Instructions for Treatment How to Access Health Informa tion Online using Patient Portal and [employer] Apps Indication:Non-smoker Start:08-Feb-2021 Instruction Type:Patient Education How [...] tion Online using Patient Portal and [employer] Apps Indication:Non-smoker Start:23-Jul-2023 Instruction Type:Patient Education Patient Instructions Indication:Non-smoker Start:23-Jul-2023 Instruction Type:Provider Instructions for Treatment Patient Instructions Indication:Non-smoker Start:03-Sep-2022 Instruction Type:Provider Instructions for Treatment How to Access Health Informa tion Online using Patient Portal and [employer] Apps Indication:Non-smoker Start:03-Sep-2022 Instruction Type:Patient Education Patient Instructions Indication:Non-smoker Start:31-Aug-2022 Instruction Type:Provider Instructions for Treatment How to Access Health Informa tion Online using Patient Portal and [employer] Apps Indication:Non-smoker Start:31-Aug-2022 Instruction Type:Patient Education Patient Instructions Indication:BMI 23.0-23.9, adult Start:15-May-2022 Instruction Type:Provider Instructions for Treatment How to Access Health Informa tion Online using Patient Portal and [employer] Apps Indication:BMI 23.0-23.9, adult Start:15-May-2022 Instruction Type:Patient Education Patient Instructions Indication:Non-smoker Start:06-Apr-2022 Instruction Type:Provider Instructions for Treatment How to Access Health Informa tion Online using Patient Portal and [employer] Apps Indication:Non-smoker Start:06-Apr-2022 Instruction Type:Patient Education Patient Instructions Indication:Other hyperlipidemia Start:08-Feb-2021 Instruction Type:Provider Instructions for Treatment How to Access Health Informa tion Online using Patient Portal and [employer] Apps Indication:Non-smoker Start:08-Feb-2021 Instruction Type:Patient Education How [...] cirrhosis- peripheral neuropathy- etoh gout Status:Active Father Comments:[id number] age 45- M I - smoker Status:Active Mother Comments: - copd smo ker- lung cancer- pulmonary embolism- age 79 Status:Active Son 1 Comments:ankylosing spondyli tis Status:Active Unknown Family Member Name Dates Details 5 siblings- brother - primar y biliary cirrhosis- peripheral neuropathy- etoh gout Status:Active Father Comments:[id number] age 45- M I - smoker Status:Active Mother Comments: - copd smo ker- lung cancer- pulmonary embolism- age 79 Status:Active Son 1 Comments:ankylosing spondyli tis Status:Active Unknown Family Member Name Dates Details 5 siblings- brother - primar y biliary cirrhosis- peripheral neuropathy- etoh gout Status:Active Father Comments:[id number] age 45- M I - smoker Status:Active Mother Comments: - copd smo ker- lung cancer- pulmonary embolism- age 79 Status:Active Son 1 Comments:ankylosing spondyli tis Status:Active Unknown Family Member Name Dates Details 5 siblings- brother - primar y biliary cirrhosis- peripheral neuropathy- etoh gout Status:Active Father Comments:[id number] age 45- M I - smoker Status:Active Mother Comments: - copd smo ker- lung cancer- pulmonary embolism- age 79 Status:Active Son 1 Comments:ankylosing spondyli tis Status:Active Unknown Family Member Name Dates Details 5 siblings- brother - primar y biliary cirrhosis- peripheral neuropathy- etoh gout Status:Active Father Comments:[id number] age 45- M I - smoker Status:Active Mother Comments: - copd smo ker- lung cancer- pulmonary embolism- age 79 Status:Active Son 1 Comments:ankylosing spondyli tis Status:Active Unknown Family Member Name Dates Details 5 siblings- brother - primar y biliary cirrhosis- peripheral neuropathy- etoh gout Status:Active Father Comments:[id number] age 45- M I - smoker Status:Active Mother Comments: - copd smo ker- lung cancer- pulmonary embolism- age 79 Status:Active Son 1 Comments:ankylosing spondyli tis Status:Active Unknown Family Member Name Dates Details 5 siblings- brother - primar y biliary cirrhosis- peripheral neuropathy- etoh gout Status:Active Father Comments:[id number] age 45- M I - smoker Status:Active Mother Comments: - copd smo ker- lung cancer- pulmonary embolism- age 79 Status:Active Son 1 Comments:ankylosing spondyli tis Status:Active Unknown Family Member Name Dates Details 5 siblings- brother - primar y biliary cirrhosis- peripheral neuropathy- etoh gout Status:Active Father Comments:[id number] age 45- M I - smoker Status:Active Mother Comments: - copd smo ker- lung cancer- pulmonary embolism- age 79 Status:Active Son 1 Comments:ankylosing spondyli tis Status:Active Unknown Family Member Name Dates Details 5 siblings- brother - primar y biliary cirrhosis- peripheral neuropathy- etoh gout Status:Active Father Comments:[id number] age 45- M I - smoker Status:Active Mother Comments: - copd smo ker- lung cancer- pulmonary embolism- age 79 Status:Active Son 1 Comments:ankylosing spondyli tis Status:Active Unknown Family Member Name Dates Details 5 siblings- brother - primar y biliary cirrhosis- peripheral neuropathy- etoh gout Status:Active Father Comments:[id number] age 45- M I - smoker Status:Active Mother Comments: - copd smo ker- lung cancer- pulmonary embolism- age 79 Status:Active Son 1 Comments:ankylosing spondyli tis Status:Active Unknown Family Member Name Dates Details 5 siblings- brother - primar y biliary cirrhosis- peripheral neuropathy- etoh gout Status:Active Father Comments:[id number] age 45- M I - smoker Status:Active Mother Comments: - copd smo ker- lung cancer- pulmonary embolism- age 79 Status:Active Son 1 Comments:ankylosing spondyli tis Status:Active Unknown Family Member Name Dates Details 5 siblings- brother - primar y biliary cirrhosis- peripheral neuropathy- etoh gout Status:Active Father Comments:[id number] age 45- M I - smoker Status:Active Mother Comments: - copd smo ker- lung cancer- pulmonary embolism- age 79 Status:Active Son 1 Comments:ankylosing spondyli tis Status:Active Unknown Family Member Name Dates Details 5 siblings- brother - primar y biliary cirrhosis- peripheral neuropathy- etoh gout Status:Active Father Comments:[id number] age 45- M I - smoker Status:Active Mother Comments: - copd smo ker- lung cancer- pulmonary embolism- age 79 Status:Active Son 1 Comments:ankylosing spondyli tis Status:Active Unknown Family Member Name Dates Details 5 siblings- brother - primar y biliary cirrhosis- peripheral neuropathy- etoh gout Status:Active Father Comments:[id number] age 45- M I - smoker Status:Active Mother Comments: - copd smo ker- lung cancer- pulmonary embolism- age 79 Status:Active Son 1 Comments:ankylosing spondyli tis Status:Active Unknown Family Member Name Dates Details 5 siblings- brother - primar y biliary cirrhosis- peripheral neuropathy- etoh gout Status:Active Father Comments:[id number] age 45- M I - smoker Status:Active Mother Comments: - copd smo ker- lung cancer- pulmonary embolism- age 79 Status:Active Son 1 Comments:ankylosing spondyli tis Status:Active Unknown Family Member Name Dates Details 5 siblings- brother - primar y biliary cirrhosis- peripheral neuropathy- etoh gout Status:Active Father Comments:[id number] age 45- M I - smoker Status:Active Mother Comments: - copd smo ker- lung cancer- pulmonary embolism- age 79 Status:Active Son 1 Comments:ankylosing spondyli tis Status:Active Unknown Family Member Name Dates Details 5 siblings- brother - primar y biliary cirrhosis- peripheral neuropathy- etoh gout Status:Active Father Comments:[id number] age 45- M I - smoker Status:Active Mother Comments: - copd smo ker- lung cancer- pulmonary embolism- age 79 Status:Active Son 1 Comments:ankylosing spondyli tis Status:Active Unknown Family Member Name Dates Details 5 siblings- brother - primar y biliary cirrhosis- peripheral neuropathy- etoh gout Status:Active Father Comments:[id number] age 45- M I - smoker Status:Active Mother Comments: - copd smo ker- lung cancer- pulmonary embolism- age 79 Status:Active Son 1 Comments:ankylosing spondyli tis Status:Active Unknown Family Member Name Dates Details 5 siblings- brother - primar y biliary cirrhosis- peripheral neuropathy- etoh gout Status:Active Father Comments:[id number] age 45- M I - smoker Status:Active Mother Comments: - copd smo ker- lung cancer- pulmonary embolism- age 79 Status:Active Son 1 Comments:ankylosing spondyli tis Status:Active Unknown Family Member Name Dates Details 5 siblings- brother - primar y biliary cirrhosis- peripheral neuropathy- etoh gout Status:Active Father Comments:[id number] age 45- M I - smoker Status:Active Mother Comments: - copd smo ker- lung cancer- pulmonary embolism- age 79 Status:Active Son 1 Comments:ankylosing spondyli tis Status:Active Advance Directives No Advanced Directives Records Found Name Dates Details Immunization Registry [place] - Effective on 02/08/2021. Expiration date unspecified Effective:08-Feb-2021 Name Dates Details Immunization Registry [place] - Effective on 02/08/2021. Expiration date unspecified Effective:08-Feb-2021 Name Dates Details Immunization Registry [place] - Effective on 02/08/2021. Expiration date unspecified Effective:08-Feb-2021 Name Dates Details Immunization Registry [place] - Effective on 02/08/2021. Expiration date unspecified Effective:08-Feb-2021 Name Dates Details Immunization Registry [place] - Effective on 02/08/2021. Expiration date unspecified Effective:08-Feb-2021 Name Dates Details Immunization Registry [place] - Effective on 02/08/2021. Expiration date unspecified Effective:08-Feb-2021 Name Dates Details Immunization Registry [place] - Effective on 02/08/2021. Expiration date unspecified Effective:08-Feb-2021 Name Dates Details Immunization Registry [place] - Effective on 02/08/2021. Expiration date unspecified Effective:08-Feb-2021 Name Dates Details Immunization Registry [place] - Effective on 02/08/2021. Expiration date unspecified Effective:08-Feb-2021 Name Dates Details Immunization Registry [place] - Effective on 02/08/2021. Expiration date unspecified Effective:08-Feb-2021 Name Dates Details Immunization Registry [place] - Effective on 02/08/2021. Expiration date unspecified Effective:08-Feb-2021 Name Dates Details Immunization Registry [place] - Effective on 02/08/2021. Expiration date unspecified Effective:08-Feb-2021 Name Dates Details Immunization Registry [place] - Effective on 02/08/2021. Expiration date unspecified [...] Start:07-Oct-2015 Instruction Type:Patient Education How to access [employer] online - Detail Indication:Well woman exam with [...] DATE CREATED AUTHOR AUTHOR'S ORGANIZ ATION 12/17/2018 [facility] DATE CREATED AUTHOR AUTHOR'S ORGANIZ ATION 12/21/2020 [facility] DATE CREATED AUTHOR AUTHOR'S ORGANIZ ATION 02/13/2021 [facility] DATE CREATED AUTHOR AUTHOR'S ORGANIZ ATION 02/24/2021 [facility] DATE CREATED AUTHOR AUTHOR'S ORGANIZ ATION 12/18/2021 [facility] DATE CREATED AUTHOR AUTHOR'S ORGANIZ ATION 09/20/2023 [facility] FOR RECORDS PERTAINING TO PATIENTS WHO ARE [...] BE BASED ON THE PRIMARY CLINICAL RECORDS. [employer] provides no warranty or guarantee of the accuracy or completeness of information in this document.
[2023-12-04 09:40] LABS: Free T3 2.8 pg/mL (2.18-3.98)
== END | disposition home or self-care (01) ==
PROVIDERS: PCP Nurse Practitioner Family; Referring Provider Nurse Practitioner Family; Visit Provider Nurse Practitioner Family
DX: E03.9 Hypothyroidism, unspecified (principal); G45.9 Transient cerebral ischemic attack, unspecified
CPT/HCPCS: 36415; 84439; 84443; 84481; 93306; A4216